=== PATIENT | male | born 1960 | race Caucasian/White ===

== ENCOUNTER → 2018-06-12 | Outpatient (CLI) | payer SELFPAY ==
[2018-06-12 11:08] LABS: ABSOLUTE BASOPHILS # (AUTO) 0.1 10^3/uL (0.0-0.2); ABSOLUTE EOSINOPHILS # (AUTO) 0.6 10^3/uL (0.0-0.6); ABSOLUTE LYMPHOCYTES (AUTO) 1.6 10^3/uL (0.5-4.7); ABSOLUTE MONOCYTES (AUTO) 1.1 10^3/uL (0.1-1.4); ABSOLUTE NEUT (AUTO) 9.4 10^3/uL (1.7-8.2); BASOPHILS % (AUTO) 0.7 % (0-2); EOSINOPHILS % (AUTO) 4.7 % (0-6); HEMATOCRIT 28.5 % (37.9-51.0); HEMOGLOBIN 9.1 g/dL (13.5-17.0); LYMPHOCYTES % (AUTO) 12.5 % (13-45); MEAN CORPUSCULAR HEMOGLOBIN 24.7 pg (27.0-33.4); MEAN CORPUSCULAR VOLUME 77 fl (80-97); MONOCYTES % (AUTO) 8.3 % (3-13); RED CELL DISTRIBUTION WIDTH 15.7 % (11.5-14.0); SEGMENTED NEUTROPHILS % (AUTO) 73.8 % (42-78); TOTAL CELLS COUNTED % (AUTO) 100 %; WHITE BLOOD COUNT 12.8 10^3/uL (4.0-10.5)
[2018-06-12 11:10] LABS: ALANINE AMINOTRANSFERASE 27 U/L (21-72); ALBUMIN 4.3 g/dL (3.5-5.0); ALKALINE PHOSPHATASE 70 U/L (38-126); ANION GAP 9 (5-19); ASPARTATE AMINO TRANSFERASE 26 U/L (17-59); BILIRUBIN,DIRECT 0.2 mg/dL (0.0-0.4); BILIRUBIN,TOTAL 0.3 mg/dL (0.2-1.3); BLOOD UREA NITROGEN 8 mg/dL (7-20); CALCIUM 9.2 mg/dL (8.4-10.2); CARBON DIOXIDE 27 mmol/L (22-30); CHLORIDE 104 mmol/L (98-107); GLUCOSE 102 mg/dL (75-110); POTASSIUM 4.7 mmol/L (3.6-5.0); SODIUM 140.2 mmol/L (137-145); TOTAL PROTEIN 7.4 g/dL (6.3-8.2)
[2018-06-12 11:46] LABS: PLATELET COUNT 412 10^3/uL (150-450)
== END ==
LOC: OD 09:48
PROVIDERS: ATTEND Surgery
DX: R13.10 Dysphagia, unspecified (principal); R53.83 Other fatigue; R63.4 Abnormal weight loss
CPT/HCPCS: 36415; 80053; 85025

== ENCOUNTER → 2018-06-18 | Outpatient (CLI) | payer SELFPAY ==
--- NOTE | 2018-06-18 10:33 | RADIOLOGY REPORT (SQ) ---
EXAM DESCRIPTION: CT CHEST WITH COMPLETED DATE/TIME: 06/18/2018 8:59 am REASON FOR STUDY: DISEASE OF ESOPHAGUS (K22.9), UMBILICAL HERNIA (K42.9) K22.9 DISEASE OF ESOPHAGUS , UNSPECIFIED K42.9 UMBILICAL HERNIA WITHOUT OBSTRUCTION OR GANGRENE COMPARISON: None. TECHNIQUE: CT scan of the chest performed using helical scanning technique with dynamic intravenous contrast injection. Images reviewed with lung, soft tissue and bone windows. Reconstructed coronal and sagittal MPR and MIP images reviewed. All images stored on PACS. All CT scanners at this facility use dose modulation, iterative reconstruction, and/or weight based d osing when appropriate to reduce radiation dose to as low as reasonably achievable (ALARA). [facility]: Dose Right [facility]: CareDose [facility]: Dose Right [facility]: Teradose 4D [facility]: Pley CONTRAST TYPE AND DOSE: 100 mL Omnipaque 350- low osmolar. RENAL FUNCTION: BUN 8 creatinine 0.63 RADIATION DOSE: . LIMITATIONS: None. FINDINGS: LUNGS AND PLEURA: No opacities, nodules, masses. No pneumothorax. No effusions. HILAR AND MEDIASTINAL STRUCTURES: No identified masses or abnormal nodes. HEART AND VASCULAR STRUCTURES: No aneurysm or dissection. No central pulmonary emboli. No pericardi al effusion. HARDWARE: None in the chest. UPPER ABDOMEN: See separate report of the CT of the abdomen. THYROID AND OTHER SOFT TISSUES: No masses. No adenopathy. BONES: No significant finding. OTHER: No other significant finding. IMPRESSION: NORMAL CT OF THE CHEST WITH IV CONTRAST. TECHNICAL DOCUMENTATION: JOB ID: [id number] Quality ID # [id number]: Final reports with documentation of one or more dose reduction techniques (e.g., Au tomated exposure control, adjustment of the mA and/or kV according to patient size, use of iterative reconstruction technique) 2010 [employer]- All Rights Reserved Reading location - IP/workstation name: [email or web address]
--- NOTE | 2018-06-18 10:44 | RADIOLOGY REPORT (SQ) ---
EXAM DESCRIPTION: CT ABD/PELVIS WITH IV ORAL COMPLETED DATE/TIME: 06/18/2018 8:58 am REASON FOR STUDY: DISEASE OF ESOPHAGUS (K22.9), UMBILICAL HERNIA (K42.9) K22.9 DISEASE OF ESOPHAGUS , UNSPECIFIED K42.9 UMBILICAL HERNIA WITHOUT OBSTRUCTION OR GANGRENE COMPARISON: None. TECHNIQUE: CT scan of the abdomen and pelvis performed with intravenous and oral contrast using walter eloy scanning technique with dynamic intravenous contrast injection. Images reviewed with lung, soft t issue, and bone windows. Reconstructed coronal and sagittal MPR images reviewed. Delayed images for e valuation of the urinary system also acquired. All images stored on PACS. All CT scanners at this facility use dose modulation, iterative reconstruction, and/or weight based d osing when appropriate to reduce radiation dose to as low as reasonably achievable (ALARA). [facility]: Dose Right [facility]: CareDose [facility]: Dose Right [facility]: Teradose 4D [facility]: Paper Hunter CONTRAST TYPE AND DOSE: contrast/concentration: Isovue 350.00 mg/ml; Total Contrast Delivered: 100.0 ml; Total Saline Delivered: 72.0 ml RENAL FUNCTION: GFR > 60. RADIATION DOSE: CT Rad equipment meets quality standard of care and radiation dose reduction techniq ues were employed. CTDIvol: 11.1 - 15.9 mGy. DLP: 2094 mGy-cm. . LIMITATIONS: Artifact from residual barium. FINDINGS: LOWER CHEST: See separate report of the CT of the chest. LIVER: 1.8 cm low-density lesion medial segment left lobe not visualized on delayed imaging. Similar size lesion subcapsular posterior segment right lobe with delayed enhancement typical of a hemangiom a. Additional subcentimeter low-density lesions too small to characterize. SPLEEN: Normal size. No focal lesions. PANCREAS: No masses. No significant calcifications. No adjacent inflammation or peripancreatic fluid collections. Pancreatic duct not dilated. GALLBLADDER: No identified stones by CT criteria. No inflammatory changes to suggest cholecystitis. ADRENAL GLANDS: No significant masses or asymmetry. RIGHT KIDNEY AND URETER: No solid masses. No significant calcifications. No hydronephrosis or hyd roureter. LEFT KIDNEY AND URETER: No solid masses. No significant calcifications. No hydronephrosis or hydr oureter. AORTA AND VESSELS: No aneurysm. No dissection. Renal arteries, SMA, celiac without stenosis. RETROPERITONEUM: No retroperitoneal adenopathy, hemorrhage or masses. BOWEL AND PERITONEAL CAVITY: Enlarged gastrohepatic nodes, the largest 1.2 x 2.1 cm image 18. No obstruction. No visualized masses. No free fluid. No inflammatory changes or thickening of bowel wall. APPENDIX: Normal. PELVIS: No significant masses. Normal bladder. No free fluid. ABDOMINAL WALL: Fat containing anterior abdominal wall hernia. Defect measures about 2.5 cm transver se by 2.1 cm craniocaudal diameter. BONES: No significant or acute findings. OTHER: No other significant finding. IMPRESSION: 1. Mildly enlarged gastrohepatic lymph nodes. 2. Liver lesions most likely all hemangiomas, however follow-up MRI might be considered. 3. Fat containing anterior abdominal wall hernia. TECHNICAL DOCUMENTATION: JOB ID: [id number] Quality ID # [id number]: Final reports with documentation of one or more dose reduction techniques (e.g., Au tomated exposure control, adjustment of the mA and/or kV according to patient size, use of iterative reconstruction technique) 2010 [employer]- All Rights Reserved Reading location - IP/workstation name: [email or web address]
== END ==
LOC: RAD 08:19
PROVIDERS: ATTEND Surgery
DX: K22.9 Disease of esophagus, unspecified (principal); K42.9 Umbilical hernia without obstruction or gangrene; R59.0 Localized enlarged lymph nodes
CPT/HCPCS: 71260; 74177

== ENCOUNTER 2018-06-19 08:37 | Day surgery (SDC) | payer SELFPAY ==
[~2018-06-19 08:37] MED LIST: DIPHENHYDRAMINE HCL 50 MG/ML VIAL ONE; EPINEPHRINE INJ 1 MG/10 ML DISP.SYRIN ONE; FLUMAZENIL INJ 0.5 MG/5 ML VIAL ONE; GLUCAGON,HUMAN RECOMB 1 MG INJ ONE; NALOXONE HCL INJ/PF 0.4 MG/1 ML SDV ONE; ONDANSETRON HCL INJ/PF 4 MG/2 ML SDV ONE
[2018-06-19] MEDS: MIDAZOLAM 2 MG/2 ML INJ ONE ×3 (09:02→09:08)
[2018-06-19] MEDS: FENTANYL CITRATE INJ/PF 100 MCG/2 ML AMPUL ONE ×2 (09:04→09:12)
--- NOTE | 2018-06-19 10:06 | Operative Report ---
Nonrecallable Operative Report DATE OF SURGERY: 06/19/18 PREOPERATIVE DIAGNOSIS: dysphagia POSTOPERATIVE DIAGNOSIS: esophageal mass OPERATION: gastroesophagoscopy and biopsy SURGEON: SHINE DANIELS ANESTHESIA: Moderate Sedation TISSUE REMOVED OR ALTERED: esophageal biopsy at 35cm COMPLICATIONS: none ESTIMATED BLOOD LOSS: 0 INTRAOPERATIVE FINDINGS: see dictation PROCEDURE: see dictation
--- NOTE | 2018-06-19 10:13 | Discharge Summary ---
Discharge Summary (SDC) - Discharge Final Diagnosis: esophageal mass dysphagia Date of Surgery: 06/19/18 Condition: Good Treatment or Instructions: resume soft diet needs f/u with surgery clinic in 1 wk and f/u appoint with oncology Discharge Diet: As Tolerated - pt will need a f/u with me in a week and appoint wjth oncology. Discharge Activity: Activity As Tolerated, Balance Activity w/Rest, No Driving Home Care Assistance: None Needed Report the Following to Your Physician Immediately: Shortness of Breath, Nausea, Vomiting, Increase in Pain, Fever over 101 Degrees, Unusual Bleeding, IV Site Infection Signs
--- NOTE | 2018-06-19 10:33 | OPERATIVE REPORT E ---
Operative Report NAME: CATHY CARDONA : 1960 AGE: 58Y DATE OF SURGERY: 06/19/2018 ROOM: PREOPERATIVE DIAGNOSIS: Dysphagia. POSTOPERATIVE DIAGNOSIS: Esophageal mass. OPERATIVE PROCEDURE: Esophagogastroduodenoscopy with distal esophageal biopsy. SURGEON: SHINE DANIELS M.D. ANESTHESIA: IV sedation. INDICATIONS FOR OPERATION: This is a 58-year-old male who presented to the outpatient surgery clinic about 2 weeks ago with an umbilical hernia. The patient states during his physical examination that he had increasing dysphagia. Therefore, we did an upper GI on the patient, which the radiologist noted a distal esophageal mass. He, therefore, underwent a CT scan of his abdomen and chest, and we scheduled this procedure for biopsy. PROCEDURE: The patient was brought to the endoscopy suite, awake and alert, in stable condition, placed on the operative gurney and given IV sedation after an appropriate time out was performed. Initially he was given 2 mg of Versed and 50 mcg of Fentanyl, and at the completion he had received 6 mg of Versed and 150 mcg of Fentanyl. The patient was placed in a left lateral decubitus position. The Olympus gastroscope was placed into the posterior pharynx and advanced down the esophagus to the GE junction. We then continued to advance the scope to the cardia, body, and antrum of the stomach and into the duodenum. As we pulled back the duodenum was visualized and appeared to be normal, as was the body of the stomach and the antrum. Then, on retroflex of the scope, we observed the GE junction and that also appeared to be relatively normal at 38 cm. We then withdrew the scope slowly, and just above the GE junction at about 35 cm there was friable mucosa that appeared to be nodular. Numerous biopsies were obtained and sent to pathology. There was no significant bleeding from the biopsy sites. We then withdrew the scope and the rest of the esophagus proximal to that 35 cm area appeared to be normal. This completed the procedure. Estimated blood loss was negligible. The patient was returned to recovery in stable condition. DICTATING PHYSICIAN: SHINE DANIELS M.D. [id number] PHY#: [id number] ID: [id number] JOB#: [id number] ACCT: [id number] cc:SHINE DANIELS M.D. >
[2018-06-19 10:36] VITALS: BP 111/67
== END 2018-06-19 11:15 | disposition home or self-care (01) ==
LOC: END 08:37
PROVIDERS: ATTEND Surgery
DX: K22.9 Disease of esophagus, unspecified (principal); K21.9 Gastro-esophageal reflux disease without esophagitis; K42.9 Umbilical hernia without obstruction or gangrene; F17.210 Nicotine dependence, cigarettes, uncomplicated
CPT/HCPCS: 43239; 88305 ×2; J2250; J3010; J0171; J1200; J1610; J2310; J2405; J3490

== ENCOUNTER → 2018-07-29 | Outpatient (CLI) | payer SELFPAY ==
--- NOTE | 2018-07-30 08:58 | RADIOLOGY REPORT (SQ) ---
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 TECHNIQUE: Blood glucose level was verified. Above dose of FDG was injected intravenously. 2-D seg mented attenuation correction images were obtained from the base of the skull to the midthighs. Nonc ontrast CT images were obtained for attenuation correction and fusion with emission images. CT image s were performed without oral or intravenous contrast and are not sensitive for parenchymal lesions. A series of overlapping emission PET images were obtained. Images reviewed and manipulated at [facility] work station by the radiologist. Images stored on PACS. LIMITATIONS: None. FINDINGS: HEAD AND NECK: No areas of abnormal metabolic activity in the soft tissues of the head and neck. CHEST: The distal 3rd of the esophagus is markedly abnormal, with wall thickening and luminal narrowi ng from previously biopsied esophageal adenocarcinoma. Tumor measures 15 did 18 SUV. There are no m etabolically active mediastinal lymph nodes ABDOMEN AND PELVIS: Non metabolic small lymph nodes are present in the upper abdomen as follows: 1.3 cm gastrohepatic lymph node SUV 1.2 axial image 128/303 2 x 1 cm gastrohepatic lymph node SUV 1.6 axial image 132/303 1.8 x 1 cm portacaval space lymph node SUV 1.6 axial image 148/303 PROXIMAL LOWER EXTREMITIES: No areas of abnormal metabolic activity in the soft tissues of the lower extremities. BONES: No abnormal metabolic activity in the visualized skeleton. ADDITIONAL CT FINDINGS: Fat containing umbilical hernia. Calcified coronary arteries and carotid bif urcations. Scattered colonic diverticuli without CT signs acute diverticulitis OTHER: Blood pool activity 1.7 SUV. Liver background activity 2.1 SUV IMPRESSION: Malignant distal esophageal mass without PET-CT evidence of metabolically active mediast inal or upper abdominal adenopathy TECHNICAL DOCUMENTATION: JOB ID: [id number]- All Rights Reserved Reading location - IP/workstation name: [email or web address]
== END ==
LOC: RAD 19:56
PROVIDERS: ATTEND Internal Medicine Hematology & Oncology
DX: C15.5 Malignant neoplasm of lower third of esophagus (principal)
CPT/HCPCS: 78815; A9552

== ENCOUNTER 2018-08-14 05:28 | Day surgery (SDC) | payer SELFPAY ==
[~2018-08-14 05:28] MED LIST changes: +ACETAMINOPHEN 325 MG TABLET PO PRN; +CEFAZOLIN 1 GM/D5W RTU 1 GM/50 ML RTUPB IV ONE; +CEFAZOLIN 1 GM/D5W RTU 1 GM/50 ML RTUPB IV PRN; -DIPHENHYDRAMINE HCL 50 MG/ML VIAL ONE; -EPINEPHRINE INJ 1 MG/10 ML DISP.SYRIN ONE; -FLUMAZENIL INJ 0.5 MG/5 ML VIAL ONE; -GLUCAGON,HUMAN RECOMB 1 MG INJ ONE; +METRONIDAZOLE 500 MG/NS RTU 500 MG/100 ML RTUPB IV ONE; +METRONIDAZOLE 500 MG/NS RTU 500 MG/100 ML RTUPB IV PRN; -NALOXONE HCL INJ/PF 0.4 MG/1 ML SDV ONE; -ONDANSETRON HCL INJ/PF 4 MG/2 ML SDV ONE; +RINGERS SOLUTION,LACTATED 1,000 ML IV PRN
[2018-08-14 06:24] LABS: ABSOLUTE EOSINOPHILS # (AUTO) 0.5 10^3/uL (0.0-0.6); ABSOLUTE LYMPHOCYTES (AUTO) 1.1 10^3/uL (0.5-4.7); ABSOLUTE MONOCYTES (AUTO) 0.8 10^3/uL (0.1-1.4); ABSOLUTE NEUT (AUTO) 6.3 10^3/uL (1.7-8.2); BASOPHILS % (AUTO) 0.6 % (0-2); EOSINOPHILS % (AUTO) 5.8 % (0-6); HEMATOCRIT 31.2 % (37.9-51.0); HEMOGLOBIN 9.9 g/dL (13.5-17.0); LYMPHOCYTES % (AUTO) 12.9 % (13-45); MEAN CORPUSCULAR HEMOGLOBIN 23.7 pg (27.0-33.4); MEAN CORPUSCULAR HGB CONC 31.7 g/dL (32.0-36.0); MEAN CORPUSCULAR VOLUME 75 fl (80-97); PLATELET COUNT 428 10^3/uL (150-450); RED BLOOD COUNT 4.17 10^6/uL (4.35-5.55); RED CELL DISTRIBUTION WIDTH 19.6 % (11.5-14.0); SEGMENTED NEUTROPHILS % (AUTO) 71.7 % (42-78); TOTAL CELLS COUNTED % (AUTO) 100 %; WHITE BLOOD COUNT 8.7 10^3/uL (4.0-10.5)
[2018-08-14] MEDS ORDERED: ALBUTEROL SULFATE 0.083% NEB 2.5 MG/3 ML AMPUL NEB ONE (06:51)
[2018-08-14] MEDS ORDERED: FENTANYL CITRATE INJ/PF 100 MCG/2 ML AMPUL ONE ×3 (06:54→08:55)
[2018-08-14] MEDS ORDERED: KETAMINE HCL INJ 500 MG/10 ML VIAL ONE (06:54)
[2018-08-14] MEDS ORDERED: PROPOFOL INJ 200 MG/20 ML VIAL IV ONE (06:55)
[2018-08-14] MEDS ORDERED: MIDAZOLAM 2 MG/2 ML INJ ONE (06:55)
[2018-08-14] MEDS ORDERED: BUPIVACAINE HCL 0.5%-EPI 1:200000 INJ/PF 30 ML VIAL ONE (07:15)
[2018-08-14] MEDS ORDERED: DIPHENHYDRAMINE HCL 50 MG/ML VIAL IV PRN (08:27)
[2018-08-14] MEDS ORDERED: PROMETHAZINE HCL INJ 25 MG/1 ML VIAL IV PRN (08:27)
[2018-08-14] MEDS ORDERED: ONDANSETRON HCL INJ/PF 4 MG/2 ML SDV ONE (09:47)
[2018-08-14] MEDS ORDERED: SUCCINYLCHOLINE CHLORIDE INJ 200 MG/10 ML VIAL ONE (09:47)
[2018-08-14] MEDS ORDERED: DEXAMETHASONE SOD PHOSPHATE INJ 4 MG/1 ML VIAL ONE (09:47)
--- NOTE | 2018-08-14 09:53 | RADIOLOGY REPORT (SQ) ---
EXAM DESCRIPTION: FLUORO/CV PLACEMENT COMPLETED DATE/TIME: 08/14/2018 8:49 am REASON FOR STUDY: PORTACATH PLCMT LEFT SIDE ASST WITH FLUORO IN OR C15.9 MALIGNANT NEOPLASM OF ESOP HAGUS, UNSPECIFIED COMPARISON: None. FLUOROSCOPY TIME: 0.7 minutes. 4 images saved to PACS. TECHNIQUE: Intra-operative images acquired during surgical procedure to evaluate progress. NUMBER OF IMAGES: 4 images. LIMITATIONS: None. FINDINGS: Images of the chest acquired during placement of vascular port. IMPRESSION: IMAGE(S) OBTAINED DURING PROCEDURE. COMMENT: Quality ID 145: Final reports for procedures using fluoroscopy that document radiation exp osure indices, or exposure time and number of fluorographic images (if radiation exposure indices are not available) Please consult full operative report of the attending physician for description of the procedure. TECHNICAL DOCUMENTATION: JOB ID: [id number] [employer]- All Rights Reserved Reading location - IP/workstation name: [email or web address]
--- NOTE | 2018-08-14 10:05 | Operative Report ---
Nonrecallable Operative Report DATE OF SURGERY: 08/14/18 PREOPERATIVE DIAGNOSIS: esophageal cancer POSTOPERATIVE DIAGNOSIS: esophageal cancer OPERATION: diagnostic laparoscopy. laparoscpic jejunostomy tube placement. portacath placement. biopsy of gastroesophageal junction SURGEON: SHINE DANIELS ANESTHESIA: GA TISSUE REMOVED OR ALTERED: biopsy of gastroesophaeal jeunction COMPLICATIONS: none ESTIMATED BLOOD LOSS: 10cc. INTRAOPERATIVE FINDINGS: see dictation PROCEDURE: see dictation
--- NOTE | 2018-08-14 10:08 | Discharge Summary ---
Discharge Summary (SDC) - Discharge Final Diagnosis: esphageal cancer Date of Surgery: 08/14/18 Discharge Date: 08/14/18 Condition: Good Treatment or Instructions: keep the op-site on the j- tube till you see me ok to shower tomorrow. try to keep the opsite dry ok, to get steristrips wet, but no soap Referrals: ZAINAB MCCONNELL MD [Primary Care Provider] - Discharge Diet: Full Liquids - cont your full liquid diet no need to use the j- tube yet. Discharge Activity: Activity As Tolerated, No Lifting Over 10 Pounds Report the Following to Your Physician Immediately: Shortness of Breath, Nausea, Vomiting, Increase in Pain, Fever over 101 Degrees, Unusual Bleeding, Increased Soreness - needs appoint to see me in 1 wk.
[2018-08-14] MEDS ORDERED: OXYCODONE-ACETAMINOPHEN 5-325 MG TABLET PO PRN (10:10)
--- NOTE | 2018-08-14 10:50 | OPERATIVE REPORT E ---
Operative Report NAME: CATHY CARDONA : 1960 AGE: 58Y DATE OF SURGERY: 08/14/2018 ROOM: PREOPERATIVE DIAGNOSIS: ESOPHAGEAL CANCER. POSTOPERATIVE DIAGNOSIS: ESOPHAGEAL CANCER. OPERATION: Port-A-Cath placement, left chest, laparoscopic jejunostomy tube placement, gastroesophageal biopsy. SURGEON: SHINE DANIELS M.D. INDICATIONS FOR PROCEDURE: This is a 58-year-old male with known distal esophageal cancer. He is to undergo neoadjuvant chemotherapy, radiation therapy prior to his surgical esophagectomy. Because of this, he will need temporary feeding tube placement as well as Port-A-Cath placement for IV access for chemotherapy and he is therefore scheduled for this procedure. PROCEDURE: The patient was brought to the operating room in awake, alert, and stable condition, and placed on the operating table in supine position, induced under general anesthesia and intubated. The left neck and chest were prepped and draped in usual sterile fashion for the procedure. After appropriate timeout, a left subclavian stick was made with an 18-gauge needle and a wire was passed through the needle into the superior vena cava using fluoroscopy. Once this was accomplished we used the Port-A-Cath kit and a tearaway introducer dilator was placed over the wire into the superior vena cava under direct fluoroscopy. The wire was then removed as well as the dilator and the catheter was placed through the tearaway introducer, positioned in the superior vena cava just above the right atrium and the tearaway introducer was torn away. Good position resulted. We then turned our attention to the left anterior chest wall in the area just above the nipple was anesthetized with 0.5% Bupivacaine with epinephrine. Transition incision was made with a 15 blade and dissection was carried down through subcutaneous tissue with Bovie cautery. A subcutaneous pocket was made inferior to the incision to fit the power port. It was placed into the pocket. Then using the tunnel maker supplied with the kit, a tunnel was created between the subclavian stick site and the port site underneath the skin and this was done bluntly. The catheter was pulled through, attached to the power port and was irrigated with heparinized saline solution and withdrew blood well. Once it was placed, the subcutaneous tissue was then reapproximated with interrupted 3-0 Vicryl suture and the skin was reapproximated intracuticular 4-0 Biosyn. I checked the cath and the port again with Heparinized solution and it flushed and withdrew well. Gabe left heparinized saline solution within the port and the catheter. The patient was reprepped and draped for the second portion of the procedure. After appropriate timeout, the Veress needle was placed in the left upper quadrant in Palmar's point. The abdomen was insufflated with 6 liters of CO2 gas. The right lower quadrant was picked for the 5 mm camera port because the patient had a fairly large umbilical hernia with incarcerated omentum. We placed the port in the right lower quadrant. Intraabdominal visualization revealed no evidence of a Veress needle or trocar injury. Another 5 mm port was placed in the right upper quadrant. A third port, which we were going to utilize for the camera was placed supraumbilically above the umbilical hernia. We explored the abdomen with the laparoscope. I examined both lobes of the liver and they did appear to be normal without any evidence of metastatic disease. There was no peritoneal setting, however, at the GE junction just below the diaphragm there was a number of small excrescences that were removed with the endoscopic Metzenbaum scissors grasping it. Hemostasis was not required. It did not bleed. These were sent to pathology as biopsy of the GE junction. Once this was completed, we then identified the ligament of Treitz. We ran the small bowel from the ligament of Treitz to about 20 cm where I picked a loop to utilize for the jejunostomy tube. We then desufflated the abdominal cavity and created a transverse incision in the left abdominal wall with 15 blade and carried out dissection out to rectus fascia with Bovie cautery. The rectus muscle was bluntly and the posterior sheath was opened with Bovie cautery. I pulled the loop of jejunum through that small incision and then placed a 2-0 purse string suture of chromic, made a small enterotomy and placed the Dobhoff feeding tube into the jejunum at least down approximately 60 cm from the entrance site. I tied the pursestring suture down around the tube so it would not pull back. We then used a 2-0 Silk to perform a Witzel maneuver tacking the tube to the antimesenteric border of the jejunum. Once this was done, we allowed the small bowel to drop back into the abdominal cavity. I closed the transverse incision with interrupted placed cushion with a running 0-Vicryl suture for the posterior sheath and anterior sheath was closed with interrupted 0-Vicryl suture. It was anesthetized with 0.5% Marcaine solution with epinephrine and then closed the skin with intracuticular 4-0 Caprosyn. We insufflated the abdominal cavity and using 2-0 Silk I tacked the jejunum up to the anterior abdominal wall at the exit site of the tube with interrupted placed 2-0 Silk sutures, placed circumferentially around the entrance site of the tube and then distally approximately 3 to 4 cm so that the small bowel would not helicopter upon itself. Once this was completed a pneumoperitoneum was reduced. The feeding tube irrigated and withdrew well. After the pneumoperitoneum was reduced, we closed all skin incisions with the intracuticular 4-0 Biosyn and then Steri-Strips were applied to complete the procedure. Estimated blood loss was less than 10 mL. Sponge and needle counts were correct x2. The patient was awakened in the operating room, extubated, and transferred to recovery in stable condition. No complications. DICTATING PHYSICIAN: SHINE DANIELS M.D. [id number] PHY#: [id number] ID: [id number] JOB#: [id number] ACCT: [id number] cc:SHINE DANIELS M.D. >
--- NOTE | 2018-08-14 10:52 | RADIOLOGY REPORT (SQ) ---
EXAM DESCRIPTION: CHEST SINGLE VIEW COMPLETED DATE/TIME: 08/14/2018 10:33 am REASON FOR STUDY: post portacath COMPARISON: PET-CT 07/29/2018 EXAM PARAMETERS: NUMBER OF VIEWS: One view. TECHNIQUE: Single frontal radiographic view of the chest acquired. RADIATION DOSE: NA LIMITATIONS: None. FINDINGS: LUNGS AND PLEURA: No opacities, masses or pneumothorax. No pleural effusion. MEDIASTINUM AND HILAR STRUCTURES: No masses. Contour normal. HEART AND VASCULAR STRUCTURES: Heart normal in size. Normal vasculature. BONES: No acute findings. HARDWARE: Left-sided permanent central line tip superior vena cava. OTHER: No other significant finding. IMPRESSION: Left-sided permanent central line tip superior vena cava. No pneumothorax. TECHNICAL DOCUMENTATION: JOB ID: [id number] [employer]- All Rights Reserved Reading location - IP/workstation name: [email or web address]
[2018-08-14 12:17] VITALS: BP 126/77
== END 2018-08-14 12:10 | disposition home or self-care (01) ==
LOC: OROUT 05:28
PROVIDERS: ATTEND Surgery
DX: C15.9 Malignant neoplasm of esophagus, unspecified (principal); K42.9 Umbilical hernia without obstruction or gangrene; J45.909 Unspecified asthma, uncomplicated; F17.210 Nicotine dependence, cigarettes, uncomplicated
CPT/HCPCS: 36415; 85025; 88305 ×2; 71045; 77001; 36561; 44186; C1788; Q9967; J2250; J3490; J0690; J1100; J3010; J0330; J2405; J2704; J1642; 790

== ENCOUNTER 2018-08-16 10:55 | Outpatient (CLI) | payer SELFPAY ==
[~2018-08-16 10:55] MED LIST changes: -ACETAMINOPHEN 325 MG TABLET PO PRN; -CEFAZOLIN 1 GM/D5W RTU 1 GM/50 ML RTUPB IV ONE; -CEFAZOLIN 1 GM/D5W RTU 1 GM/50 ML RTUPB IV PRN; +FERRIC CARBOXYMALTOSE 750 MG in NORMAL SALINE 250 ML IV PRN; -METRONIDAZOLE 500 MG/NS RTU 500 MG/100 ML RTUPB IV ONE; -METRONIDAZOLE 500 MG/NS RTU 500 MG/100 ML RTUPB IV PRN; +NORMAL SALINE 250 ML IV PRN; -RINGERS SOLUTION,LACTATED 1,000 ML IV PRN
[2018-08-16 11:22] VITALS: BP 119/80
== END 2018-08-16 12:34 | disposition home or self-care (01) ==
LOC: II 10:55 → 5TH 10:57 → II 12:34
PROVIDERS: ATTEND Internal Medicine Hematology & Oncology
PROC: 3E033GC Introduction of Other Therapeutic Substance into Peripheral Vein, Percutaneous Approach (ICD-10-PCS; principal; 2018-08-16)
DX: D50.9 Iron deficiency anemia, unspecified (principal); K90.9 Intestinal malabsorption, unspecified
CPT/HCPCS: 96365; J7050; J1439

== ENCOUNTER 2018-08-23 10:38 | Outpatient (CLI) | payer SELFPAY ==
[2018-08-23] MEDS ORDERED: FERRIC CARBOXYMALTOSE 750 MG in NORMAL SALINE 250 ML IV ONE (11:15)
[2018-08-23] MEDS ORDERED: NORMAL SALINE 1000 ML 1,000 ML IV PRN (11:16)
[2018-08-23 11:39] VITALS: BP 110/66
== END 2018-08-23 12:20 | disposition home or self-care (01) ==
LOC: II 10:38 → 5TH 10:42 → II 12:20
PROVIDERS: ATTEND Internal Medicine Hematology & Oncology
DX: D50.9 Iron deficiency anemia, unspecified (principal); K90.9 Intestinal malabsorption, unspecified
CPT/HCPCS: 96367; J7050; J1439

== ENCOUNTER 2018-08-29 07:49 | Outpatient (CLI) | payer SELFPAY ==
[~2018-08-29 07:49] MED LIST changes: +CARBOPLATIN IV PRN; +DEXAMETHASONE SOD PHOSPHATE 10 MG in NORMAL SALINE 50 ML IV PRN; +DIPHENHYDRAMINE HCL 50 MG in NORMAL SALINE 50 ML IV PRN; +FAMOTIDINE/PF 20 MG in NORMAL SALINE 50 ML IV PRN; -FERRIC CARBOXYMALTOSE 750 MG in NORMAL SALINE 250 ML IV PRN; +NORMAL SALINE IV PRN; +PACLITAXEL SEMI SYNTHETIC IV PRN; +PALONOSETRON 0.25 MG/5 ML SDV IV PRN
[2018-08-29 08:23] VITALS: BP 101/67
== END 2018-08-29 12:49 | disposition home or self-care (01) ==
LOC: II 07:49 → 5TH 07:52 → II 12:49
PROVIDERS: ATTEND Internal Medicine Hematology & Oncology
PROC: 3E04305 Introduction of Other Antineoplastic into Central Vein, Percutaneous Approach (ICD-10-PCS; principal; 2018-08-29)
PROC: 3E0433Z Introduction of Anti-inflammatory into Central Vein, Percutaneous Approach (ICD-10-PCS; 2018-08-29)
PROC: 3E043GC Introduction of Other Therapeutic Substance into Central Vein, Percutaneous Approach (ICD-10-PCS; 2018-08-29)
DX: Z51.11 Encounter for antineoplastic chemotherapy (principal); C15.9 Malignant neoplasm of esophagus, unspecified
CPT/HCPCS: 96413; 96415; 96365; 96366; 96374; J1200; J9045; J7050; J7040; J9267; S0028; J1100; J1642; J2469; 96367; 96375; 96417

== ENCOUNTER 2018-09-05 08:31 | Outpatient (CLI) | payer SELFPAY ==
[~2018-09-05 08:31] MED LIST changes: +DEXAMETHASONE 10 MG in NS 50 ML IV PRN; -DEXAMETHASONE SOD PHOSPHATE 10 MG in NORMAL SALINE 50 ML IV PRN; +DIPHENHYDRAMINE 50 MG in NS 50 ML IV PRN; -DIPHENHYDRAMINE HCL 50 MG in NORMAL SALINE 50 ML IV PRN; +FAMOTIDINE 20 MG in NS 50 ML IV PRN; +FAMOTIDINE 20 MG/2 ML VIAL IV PRN; -FAMOTIDINE/PF 20 MG in NORMAL SALINE 50 ML IV PRN; +NORMAL SALINE 250 ML @ KVO IV PRN; -NORMAL SALINE 250 ML IV PRN; -PALONOSETRON 0.25 MG/5 ML SDV IV PRN; +PALONOSETRON 0.25 MG/5 ML VIAL IV PRN
[2018-09-05 09:10] VITALS: BP 99/63
== END 2018-09-05 13:37 | disposition home or self-care (01) ==
LOC: II 08:31 → 5TH 08:33 → II 13:37
PROVIDERS: ATTEND Internal Medicine Hematology & Oncology
DX: Z51.11 Encounter for antineoplastic chemotherapy (principal); C15.9 Malignant neoplasm of esophagus, unspecified
CPT/HCPCS: 96413; 96415; 96367; 96374; 96375; 96360; J1200; J9045; J7050; J7040; J9267; S0028; J1100; J1642; J2469

== ENCOUNTER 2018-09-12 08:33 | Outpatient (CLI) | payer SELFPAY ==
[~2018-09-12 08:33] MED LIST changes: -DEXAMETHASONE 10 MG in NS 50 ML IV PRN; +DEXAMETHASONE SOD PHOSPHATE 10 MG in NORMAL SALINE 50 ML IV PRN; -DIPHENHYDRAMINE 50 MG in NS 50 ML IV PRN; +DIPHENHYDRAMINE HCL 50 MG in NORMAL SALINE 50 ML IV PRN; -FAMOTIDINE 20 MG in NS 50 ML IV PRN; -FAMOTIDINE 20 MG/2 ML VIAL IV PRN; +FAMOTIDINE/PF 20 MG in NORMAL SALINE 50 ML IV PRN
[2018-09-12 08:52] VITALS: BP 132/79
== END 2018-09-12 12:34 | disposition home or self-care (01) ==
LOC: II 08:33 → 5TH 08:37 → II 12:34
PROVIDERS: ATTEND Internal Medicine Hematology & Oncology
PROC: 3E04305 Introduction of Other Antineoplastic into Central Vein, Percutaneous Approach (ICD-10-PCS; principal; 2018-09-12)
PROC: 3E0433Z Introduction of Anti-inflammatory into Central Vein, Percutaneous Approach (ICD-10-PCS; 2018-09-12)
PROC: 3E043GC Introduction of Other Therapeutic Substance into Central Vein, Percutaneous Approach (ICD-10-PCS; 2018-09-12)
DX: Z51.11 Encounter for antineoplastic chemotherapy (principal); C15.9 Malignant neoplasm of esophagus, unspecified; D50.9 Iron deficiency anemia, unspecified; K46.9 Unspecified abdominal hernia without obstruction or gangrene
CPT/HCPCS: 96413; 96415; 96367; 96368; 96374; 96375; 96360; J1200; J9045; J7050; J7040; J9267; S0028; J1100; J1642; J2469; 96417

== ENCOUNTER 2018-09-19 08:37 | Outpatient (CLI) | payer SELFPAY ==
[~2018-09-19 08:37] MED LIST changes: +DEXAMETHASONE 10 MG in NS 50 ML IV PRN; -DEXAMETHASONE SOD PHOSPHATE 10 MG in NORMAL SALINE 50 ML IV PRN; +DIPHENHYDRAMINE 50 MG in NS 50 ML IV PRN; -DIPHENHYDRAMINE HCL 50 MG in NORMAL SALINE 50 ML IV PRN; +FAMOTIDINE 20 MG in NS 50 ML IV PRN; -FAMOTIDINE/PF 20 MG in NORMAL SALINE 50 ML IV PRN
[2018-09-19 08:59] VITALS: BP 117/84
== END 2018-09-19 13:34 | disposition home or self-care (01) ==
LOC: II 08:37 → 5TH 08:39 → II 13:34
PROVIDERS: ATTEND Internal Medicine Hematology & Oncology
PROC: 3E04305 Introduction of Other Antineoplastic into Central Vein, Percutaneous Approach (ICD-10-PCS; principal; 2018-09-19)
PROC: 3E0433Z Introduction of Anti-inflammatory into Central Vein, Percutaneous Approach (ICD-10-PCS; 2018-09-19)
PROC: 3E043GC Introduction of Other Therapeutic Substance into Central Vein, Percutaneous Approach (ICD-10-PCS; 2018-09-19)
DX: Z51.11 Encounter for antineoplastic chemotherapy (principal); C15.9 Malignant neoplasm of esophagus, unspecified
CPT/HCPCS: 96413; 96415; 96365; 96366; 96374; J1200; J9045; J7050; J7040; J9267; S0028; J1100; J1642; J2469; 96367; 96375; 96417

== ENCOUNTER 2018-09-26 08:40 | Outpatient (CLI) | payer SELFPAY ==
[~2018-09-26 08:40] MED LIST changes: -DEXAMETHASONE 10 MG in NS 50 ML IV PRN; +DEXAMETHASONE SOD PHOSPHATE 10 MG in NORMAL SALINE 50 ML IV PRN; -DIPHENHYDRAMINE 50 MG in NS 50 ML IV PRN; +DIPHENHYDRAMINE HCL 50 MG in NORMAL SALINE 50 ML IV PRN; -FAMOTIDINE 20 MG in NS 50 ML IV PRN; +FAMOTIDINE/PF 20 MG in NORMAL SALINE 50 ML IV PRN; -NORMAL SALINE 250 ML @ KVO IV PRN; +NORMAL SALINE 250 ML IV PRN; +PALONOSETRON 0.25 MG/5 ML SDV IV PRN; -PALONOSETRON 0.25 MG/5 ML VIAL IV PRN
[2018-09-26 09:04] VITALS: BP 116/73
== END 2018-09-26 13:07 | disposition home or self-care (01) ==
LOC: II 08:40 → 5TH 08:44 → II 13:07
PROVIDERS: ATTEND Internal Medicine
PROC: 3E04305 Introduction of Other Antineoplastic into Central Vein, Percutaneous Approach (ICD-10-PCS; principal; 2018-09-26)
PROC: 3E0433Z Introduction of Anti-inflammatory into Central Vein, Percutaneous Approach (ICD-10-PCS; 2018-09-26)
PROC: 3E043GC Introduction of Other Therapeutic Substance into Central Vein, Percutaneous Approach (ICD-10-PCS; 2018-09-26)
DX: D57.1 Sickle-cell disease without crisis (principal); R52 Pain, unspecified; E86.0 Dehydration
CPT/HCPCS: 96413; 96415; 96367; 96374; 96375; J1200; J9045; J7050; J7040; J9267; S0028; J1100; J1642; J2469; 96417

== ENCOUNTER → 2018-09-27 | Outpatient (CLI) | payer SELFPAY | LOC: II 09:53 | PROVIDERS: ATTEND Internal Medicine Hematology & Oncology | DX: Z53.9 Procedure and treatment not carried out, unspecified reason (principal) ==

== ENCOUNTER 2018-10-03 09:35 | Outpatient (CLI) | payer SELFPAY ==
[2018-10-03] MEDS ORDERED: FAMOTIDINE 20 MG in NS 50 ML IV PRN (09:49)
[2018-10-03] MEDS ORDERED: DIPHENHYDRAMINE 50 MG in NS 50 ML IV PRN (09:49)
[2018-10-03] MEDS ORDERED: DEXAMETHASONE 10 MG in NS 50 ML IV PRN (09:49)
[2018-10-03] MEDS ORDERED: NORMAL SALINE 250 ML @ KVO IV PRN (09:50)
[2018-10-03] MEDS ORDERED: PALONOSETRON 0.25 MG/5 ML VIAL IV PRN (09:50)
[2018-10-03] MEDS ORDERED: PACLITAXEL SEMI SYNTHETIC IV PRN (09:56)
[2018-10-03] MEDS ORDERED: NORMAL SALINE IV PRN ×2 (09:56→10:09)
[2018-10-03 10:02] VITALS: BP 149/62
[2018-10-03] MEDS ORDERED: CARBOPLATIN IV PRN (10:09)
== END 2018-10-03 14:00 | disposition home or self-care (01) ==
LOC: II 09:35 → 5TH 09:39 → II 14:00
PROVIDERS: ATTEND Internal Medicine Hematology & Oncology
PROC: 3E04305 Introduction of Other Antineoplastic into Central Vein, Percutaneous Approach (ICD-10-PCS; principal; 2018-10-03)
PROC: 3E0433Z Introduction of Anti-inflammatory into Central Vein, Percutaneous Approach (ICD-10-PCS; 2018-10-03)
PROC: 3E043GC Introduction of Other Therapeutic Substance into Central Vein, Percutaneous Approach (ICD-10-PCS; 2018-10-03)
DX: Z51.11 Encounter for antineoplastic chemotherapy (principal); C15.9 Malignant neoplasm of esophagus, unspecified
CPT/HCPCS: 96413; 96367; 96375; 96417; J1200; J9045; J7050; J7040; J9267; S0028; J1100; J1642; J2469; 96360; 96374; 96415

== ENCOUNTER → 2018-10-11 | Outpatient (CLI) | payer SELFPAY ==
--- NOTE | 2018-10-11 14:17 | RADIOLOGY REPORT (SQ) ---
EXAM DESCRIPTION: CT CHEST WITH; CT ABD/PELVIS WITH IV ORAL COMPLETED DATE/TIME: 10/11/2018 1:15 pm REASON FOR STUDY: C15.9 MALIGNANT NEOPLASM OF ESOPHAGUS, UNSPECIFIED; K42.9 UMBILICAL HERNIA WITHOUT OBSTRUCTION OR GANGRENE C15.9 MALIGNANT NEOPLASM OF ESOPHAGUS, UNSPECIFIED K42.9 UMBILICAL HERNIA WITHOUT OBSTRUCTION OR GANGRENE COMPARISON: Via CT CS 7186 CT abdomen pelvis 06/18/2017 CONTRAST TYPE AND DOSE: contrast/concentration: Isovue 350.00 mg/ml; Total Contrast Delivered: 99.0 ml; Total Saline Delivered: 72.0 ml RENAL FUNCTION: Creatinine 0.44 TECHNIQUE: CT scan of the chest performed using helical scanning technique with dynamic intravenous contrast injection. Images reviewed with lung, soft tissue and bone windows. Reconstructed coronal a nd sagittal MPR images reviewed. All images stored on PACS. CT scan of the abdomen and pelvis performed with intravenous and with oral contrastusing helical scan татьяна technique with dynamic intravenous contrast injection. Images reviewed with lung, soft tissue a nd bone windows. Reconstructed coronal and sagittal MPR images reviewed. Delayed images for evaluat ion of the urinary system also acquired and evaluated. All images stored on PACS. All CT scanners at this facility use dose modulation, iterative reconstruction, and/or weight based d osing when appropriate to reduce radiation dose to as low as reasonably achievable (ALARA). [facility]: Dose Right [facility]: CareDose [facility]: Dose Right [facility]: Teradose 4D [facility]: [employer] RADIATION DOSE: CT Rad equipment meets quality standard of care and radiation dose reduction techniq ues were employed. CTDIvol: 8.1 - 10.2 mGy. DLP: 1356 mGy-cm. . LIMITATIONS: None. FINDINGS: CHEST: LUNGS AND PLEURA: No opacities, nodules, masses. No pneumothorax. No effusions. HILAR AND MEDIASTINAL STRUCTURES: The distal esophagus is diffusely abnormal, with wall thickening up to 1.7 cm in thickness. This is in the area of prior esophageal tumor identified 07/29/2018 this is s imilar compared to PET-CT 07/29/2018. No enlarged mediastinal lymph nodes are identified. HEART AND VASCULAR STRUCTURES: No aneurysm or dissection. No central pulmonary emboli. No pericardi al effusion. HARDWARE: Left permanent central line tip superior vena cava THYROID AND OTHER SOFT TISSUES: No masses. No adenopathy. BONES: No significant finding. OTHER: No other significant finding. ABDOMEN AND PELVIS: LIVER: 3 x 2 cm hypodensity in the posterior right lobe liver subdiaphragmatic surface worrisome for metastatic disease. This is best shown on axial image . 2 x 2 cm hypodensity is present in the left lobe liver between the middle and left hepatic veins worr isome for metastatic disease. Best shown on axial image . SPLEEN: Normal size. No focal lesions. PANCREAS: No masses. No significant calcifications. No adjacent inflammation or peripancreatic fluid collections. Pancreatic duct not dilated. GALLBLADDER: No identified stones by CT criteria. No inflammatory changes to suggest cholecystitis. ADRENAL GLANDS: No significant masses or asymmetry. RIGHT KIDNEY AND URETER: No solid masses. No significant calcification. No hydronephrosis or hydroure ter. LEFT KIDNEY AND URETER: No solid masses. No significant calcification. No hydronephrosis or hydrouret er. AORTA AND VESSELS: No aneurysm. No dissection. Renal arteries, SMA, celiac without stenosis. RETROPERITONEUM: No retroperitoneal adenopathy, hemorrhage or masses. BOWEL AND PERITONEAL CAVITY: Patient drank oral contrast. No CT evidence of bowel obstruction or john e intraperitoneal air or fluid. APPENDIX: Normal. ABDOMINAL WALL: Persistent fat containing umbilical hernia PELVIS: No mass or free fluid. Normal bladder. BONES: No significant or acute findings. OTHER: No other significant finding. IMPRESSION: Persistent distal esophageal wall thickening and luminal narrowing. Distal esophageal w all measures up to 1.7 cm in thickness just above the GE junction. Hypodensities in the liver worrisome for metastatic disease TECHNICAL DOCUMENTATION: JOB ID: [id number] Quality ID # [id number]: Final reports with documentation of one or more dose reduction techniques (e.g., Au tomated exposure control, adjustment of the mA and/or kV according to patient size, use of iterative reconstruction technique) 2010 [employer]- All Rights Reserved Reading location - IP/workstation name: [email or web address]
== END ==
LOC: RAD 12:39
PROVIDERS: ATTEND Surgery
DX: C15.9 Malignant neoplasm of esophagus, unspecified (principal); K42.9 Umbilical hernia without obstruction or gangrene
CPT/HCPCS: 71260; 74177

== ENCOUNTER 2018-11-08 07:08 | Inpatient (IN) | payer MEDICAID ==
[2018-11-01 09:31] LABS: HEMATOCRIT 39.6 % (37.9-51.0); HEMOGLOBIN 13.4 g/dL (13.5-17.0); MEAN CORPUSCULAR HEMOGLOBIN 29.6 pg (27.0-33.4); MEAN CORPUSCULAR HGB CONC 33.8 g/dL (32.0-36.0); MEAN CORPUSCULAR VOLUME 88 fl (80-97); PLATELET COUNT 206 10^3/uL (150-450); RED BLOOD COUNT 4.51 10^6/uL (4.35-5.55); WHITE BLOOD COUNT 4.7 10^3/uL (4.0-10.5)
[2018-11-01 09:58] LABS: ALANINE AMINOTRANSFERASE 15 U/L (21-72); ALKALINE PHOSPHATASE 50 U/L (38-126); ANION GAP 8 (5-19); ASPARTATE AMINO TRANSFERASE 21 U/L (17-59); BILIRUBIN,DIRECT 0.2 mg/dL (0.0-0.4); BILIRUBIN,TOTAL 0.6 mg/dL (0.2-1.3); BLOOD UREA NITROGEN 8 mg/dL (7-20); CALCIUM 9.6 mg/dL (8.4-10.2); CARBON DIOXIDE 28 mmol/L (22-30); CHLORIDE 104 mmol/L (98-107); GLUCOSE 103 mg/dL (75-110); POTASSIUM 4.2 mmol/L (3.6-5.0); TOTAL PROTEIN 6.8 g/dL (6.3-8.2)
--- NOTE | 2018-11-01 20:03 | EKG REPORT ---
SEVERITY:- ABNORMAL ECG - POSSIBLE ATRIAL ARRHYTHMIA, A-RATE 155 LEFT ANTERIOR FASCICULAR BLOCK : Confirmed by: Alicia Liu MD 01-Nov-2018 20:02:43
[~2018-11-08 07:08] MED LIST changes: -CARBOPLATIN IV PRN; +CEFAZOLIN SODIUM 2 GM in DEXTROSE 5%-WATER 100 ML IV PRN; -DEXAMETHASONE SOD PHOSPHATE 10 MG in NORMAL SALINE 50 ML IV PRN; -DIPHENHYDRAMINE HCL 50 MG in NORMAL SALINE 50 ML IV PRN; -FAMOTIDINE/PF 20 MG in NORMAL SALINE 50 ML IV PRN; +LACTATED RINGERS 1000 ML IV PRN; +LIDOCAINE 0.5% INJ-PF (5 MG/ML) 50 ML SDV SUBCUT PRN; +METRONIDAZOLE 500 MG/NS RTU 500 MG/100 ML RTUPB IV PRN; -NORMAL SALINE 250 ML IV PRN; -NORMAL SALINE IV PRN; -PACLITAXEL SEMI SYNTHETIC IV PRN; -PALONOSETRON 0.25 MG/5 ML SDV IV PRN
[2018-11-08] MEDS ORDERED: ONDANSETRON HCL INJ/PF 4 MG/2 ML SDV ONE (09:13)
[2018-11-08] MEDS ORDERED: MORPHINE SULFATE 10 MG/ML INJ ONE (09:13)
[2018-11-08] MEDS ORDERED: FENTANYL CITRATE INJ/PF 250 MCG/5 ML AMPULE ONE (09:13)
[2018-11-08] MEDS ORDERED: EPHEDRINE SULFATE INJ 50 MG/1 ML AMPULE ONE (09:13)
[2018-11-08] MEDS ORDERED: DEXAMETHASONE SOD PHOSPHATE INJ 4 MG/1 ML VIAL ONE (09:13)
[2018-11-08] MEDS ORDERED: PROPOFOL INJ 200 MG/20 ML VIAL IV ONE ×2 (09:14→16:00)
[2018-11-08] MEDS ORDERED: MIDAZOLAM 2 MG/2 ML INJ ONE ×2 (09:18→16:13)
[2018-11-08] MEDS ORDERED: BUPIVACAINE HCL 0.25% /EPINEPHRINE INJ/PF 30 ML SDV ONE (09:51)
[2018-11-08] MEDS ORDERED: METRONIDAZOLE 500 MG/NS RTU 500 MG/100 ML RTUPB IV ONE (11:08)
[2018-11-08] MEDS ORDERED: CEFAZOLIN INJ 1 GM VIAL ONE (11:08)
[2018-11-08] MEDS ORDERED: VECURONIUM BROMIDE INJ 10 MG VIAL IV ONE (12:04)
[2018-11-08] MEDS ORDERED: PHENYLEPHRINE HCL INJ/PF 10 MG/1 ML SDV ONE (12:04)
[2018-11-08] MEDS ORDERED: NEOSTIGMINE METHYLSULFATE 10 MG/10 ML VIAL ONE (12:04)
[2018-11-08] MEDS ORDERED: GLYCOPYRROLATE 1 MG/5 ML VIAL ONE (12:04)
[2018-11-08] MEDS ORDERED: SUCCINYLCHOLINE CHLORIDE INJ 200 MG/10 ML VIAL ONE (12:04)
[2018-11-08 13:18] LABS: HEMATOCRIT 36.3 % (37.9-51.0); HEMOGLOBIN 12.3 g/dL (13.5-17.0); MEAN CORPUSCULAR HEMOGLOBIN 30.5 pg (27.0-33.4); MEAN CORPUSCULAR VOLUME 90 fl (80-97); PLATELET COUNT 271 10^3/uL (150-450); RED BLOOD COUNT 4.05 10^6/uL (4.35-5.55); RED CELL DISTRIBUTION WIDTH 26.8 % (11.5-14.0)
[2018-11-08] MEDS ORDERED: FENTANYL CITRATE INJ/PF 100 MCG/2 ML AMPUL IV PRN ×3 (14:27)
[2018-11-08] MEDS ORDERED: DIPHENHYDRAMINE HCL 50 MG/ML VIAL IV PRN (14:27)
[2018-11-08] MEDS ORDERED: ONDANSETRON HCL INJ/PF 4 MG/2 ML SDV IV PRN ×2 (14:27→16:39)
[2018-11-08] MEDS ORDERED: MEPERIDINE HCL/PF INJ 25 MG/1 ML DISP.SYRIN IV PRN (14:27)
[2018-11-08] MEDS ORDERED: MORPHINE SULFATE 10 MG/ML INJ IV PRN (14:27)
[2018-11-08] MEDS ORDERED: PROMETHAZINE HCL INJ 25 MG/1 ML VIAL IV PRN ×2 (14:27)
[2018-11-08] MEDS ORDERED: OXYCODONE-ACETAMINOPHEN 5-325 MG TABLET PO PRN ×2 (14:27)
[2018-11-08] MEDS ORDERED: SUGAMMADEX SODIUM 200 MG/2 ML SDV IV ONE (15:49)
[2018-11-08] MEDS ORDERED: GLUCAGON,HUMAN RECOMB 1 MG INJ SUBCUT PRN (16:28)
[2018-11-08] MEDS ORDERED: DEXTROSE 50%-WATER 25 GM/50 ML DISP.SYRIN IV PRN ×2 (16:28)
[2018-11-08] MEDS ORDERED: DEXTROSE 40% GEL 15 GM TUBE PO PRN ×2 (16:28)
[2018-11-08] MEDS ORDERED: ALBUMIN HUMAN 5% INJ 25 GM/500 ML BOTTLE IV PRN (16:43)
[2018-11-08] MEDS ORDERED: MIDAZOLAM HCL 50 MG/100 ML RTUINJ ONE (16:50)
[2018-11-08] MEDS: MIDAZOLAM HCL 50 MG/100 ML RTUINJ IV PRN (16:55)
[2018-11-08] MEDS ORDERED: DIGOXIN INJ 0.5 MG/2 ML AMPULE IV ONE (17:00)
--- NOTE | 2018-11-08 17:04 | Operative Report ---
Nonrecallable Operative Report DATE OF SURGERY: 11/08/18 PREOPERATIVE DIAGNOSIS: esophageal cancer POSTOPERATIVE DIAGNOSIS: esophageal cancer OPERATION: esophagectomy SURGEON: SHINE DANIELS 1ST INTERNAL AUDITOR: SUHAIL FLORES ANESTHESIA: GA TISSUE REMOVED OR ALTERED: esophagus and stomach COMPLICATIONS: none ESTIMATED BLOOD LOSS: 300cc INTRAOPERATIVE FINDINGS: see dictation PROCEDURE: see dictation
[2018-11-08 17:26] LABS: HEMATOCRIT 37.5 % (37.9-51.0); HEMOGLOBIN 12.5 g/dL (13.5-17.0); MEAN CORPUSCULAR HEMOGLOBIN 30.3 pg (27.0-33.4); MEAN CORPUSCULAR HGB CONC 33.3 g/dL (32.0-36.0); MEAN CORPUSCULAR VOLUME 91 fl (80-97); PLATELET COUNT 295 10^3/uL (150-450); RED BLOOD COUNT 4.13 10^6/uL (4.35-5.55); RED CELL DISTRIBUTION WIDTH 27.2 % (11.5-14.0)
--- NOTE | 2018-11-08 17:26 | RADIOLOGY REPORT (SQ) ---
EXAM DESCRIPTION: CHEST SINGLE VIEW COMPLETED DATE/TIME: 11/08/2018 4:55 pm REASON FOR STUDY: ET TUBE PLACEMENT/ POST OR COMPARISON: 10/11/2018. EXAM PARAMETERS: NUMBER OF VIEWS: One view. TECHNIQUE: Single frontal radiographic view of the chest acquired. RADIATION DOSE: NA LIMITATIONS: None. FINDINGS: LUNGS AND PLEURA: A few scattered linear densities. No lobar infiltrates. No pleural eff usion or pneumothorax. MEDIASTINUM AND HILAR STRUCTURES: No masses. Contour normal. HEART AND VASCULAR STRUCTURES: Heart normal in size. Normal vasculature. BONES: No acute findings. HARDWARE: Tip of the endotracheal tube located 5 cm proximal to the taylor. Tip of the nasogastric t ube located in the upper abdomen with the side hole located in the lower thoracic region, approximate ly T10-11. Central line on the right side with the tip at the level of the superior vena cava. Vasc ular access port unchanged. Bilateral chest tubes with midline surgical drain and skin wendy on th e left side of the neck. OTHER: No other significant finding. IMPRESSION: POSTOPERATIVE CHEST WITH HARDWARE DESCRIBED. SCATTERED ATELECTASIS. NO PNEUMOTHORAX . TECHNICAL DOCUMENTATION: JOB ID: [id number] [employer]- All Rights Reserved Reading location - IP/workstation name: [email or web address]
[2018-11-08 17:42] LABS: ABSOLUTE LYMPHOCYTES# (MANUAL) 0.8 10^3/uL (0.5-4.7); ABSOLUTE MONOCYTES # (MANUAL) 0.7 10^3/uL (0.1-1.4); BAND NEUTROPHILS % (MANUAL) 4 % (3-5); BASOPHILS % (MANUAL) 0 % (0-2); EOSINOPHILS % (MANUAL) 0 % (0-6); LYMPHOCYTES % (MANUAL) 6 % (13-45); MONOCYTES % (MANUAL) 5 % (3-13); PLATELET COMMENT ADEQUATE; SEGMENTED NEUTROPHILS % (MAN) 85 % (42-78); TOTAL CELLS COUNTED 100
[2018-11-08 17:44] LABS: ANISOCYTOSIS 2+; HYPOCHROMASIA SLIGHT; POIKILOCYTOSIS 1+
[2018-11-08] MEDS ORDERED: ALBUMIN HUMAN 500 ML IV ONE (18:00)
[2018-11-08] MEDS ORDERED: CEFAZOLIN 2 GM/D5W RTU 2 GM/50 ML RTUPB IV SCH (18:00)
[2018-11-08] MEDS: CEFAZOLIN SODIUM 2 GM in DEXTROSE 5%-WATER 100 ML IV SCH ×2 (18:37→23:15)
[2018-11-08] MEDS: POTASSI CL 20 MEQ/D5-1/2NS 1L 1,000 ML IV PRN (18:40)
[2018-11-08] MEDS: MORPHINE SULFATE 10 MG/ML INJ IV PRN ×2 (18:52→23:59)
[2018-11-08 20:21] LABS: ARTERIAL BLOOD BASE EXCESS -5.8 mmol/L; ARTERIAL BLOOD HCO3 19.3 mmol/L (20-24); ARTERIAL BLOOD O2 SATURATION 97.4 % (94-98); ARTERIAL BLOOD PCO2 36.4 mmHg (35-45); ARTERIAL BLOOD PH 7.34 (7.35-7.45); ARTERIAL BLOOD PO2 102.6 mmHg (80-100); ARTERIAL BLOOD TOTAL CO2 20.4 mmol/L (23-27)
[2018-11-08 20:22] LABS: ARTERIAL BLOOD FIO2 40%
[2018-11-09] MEDS: POTASSI CL 20 MEQ/D5-1/2NS 1L 1,000 ML IV PRN ×3 (02:15→16:30)
[2018-11-09 04:41] LABS: ALANINE AMINOTRANSFERASE 59 U/L (21-72); ALBUMIN 2.6 g/dL (3.5-5.0); ALKALINE PHOSPHATASE 30 U/L (38-126); ASPARTATE AMINO TRANSFERASE 65 U/L (17-59); BILIRUBIN,DIRECT 0.2 mg/dL (0.0-0.4); BILIRUBIN,TOTAL 0.4 mg/dL (0.2-1.3); BLOOD UREA NITROGEN 6 mg/dL (7-20); CALCIUM 8.1 mg/dL (8.4-10.2); CARBON DIOXIDE 24 mmol/L (22-30); CHLORIDE 108 mmol/L (98-107); GLUCOSE 173 mg/dL (75-110); POTASSIUM 4.4 mmol/L (3.6-5.0); TOTAL PROTEIN 4.7 g/dL (6.3-8.2)
[2018-11-09 05:02] LABS: ANION GAP 4 (5-19)
[2018-11-09] MEDS: CEFAZOLIN SODIUM 2 GM in DEXTROSE 5%-WATER 100 ML IV SCH ×3 (05:27→18:27)
[2018-11-09] MEDS: MORPHINE SULFATE 10 MG/ML INJ IV PRN ×5 (05:38→23:50)
--- NOTE | 2018-11-09 07:45 | PDOC PROGRESS REPORT ---
Subjective Progress Note for:: 11/09/18 Subjective:: awake responsive following commands Reason For Visit: C15.9 MALIGNANT NEOPLASM OF ESOPHAGUS, UNSPECIFIED Physical Exam Vital Signs: Temp Pulse Resp BP Pulse Ox 99.0 F 104 H 0 L 106/71 96 11/09/18 06:00 11/08/18 19:44 11/09/18 06:00 11/09/18 05:20 11/09/18 06:00 Intake & Output 11/08/18 11/09/18 11/10/18 06:59 06:59 06:59 Intake Total 1802 Output Total 1999 Balance -198 Weight 86.18 kg 92.2 kg General appearance: PRESENT: no acute distress Head exam: PRESENT: normocephalic Eye exam: PRESENT: EOMI Ear exam: PRESENT: other Mouth exam: PRESENT: dry mucosa Teeth exam: PRESENT: poor dentation Neck exam: PRESENT: full ROM, other - dressing dry Respiratory exam: PRESENT: clear to auscultation jacy Cardiovascular exam: PRESENT: tachycardia Pulses: PRESENT: normal radial pulses, normal femoral pulses, normal dorsalis pedis pul GI/Abdominal exam: PRESENT: soft Rectal exam: PRESENT: deferred Gentrourinary exam: PRESENT: indwelling catheter Extremities exam: PRESENT: full ROM Musculoskeletal exam: PRESENT: full ROM Neurological exam: PRESENT: alert, awake, oriented to person Psychiatric exam: PRESENT: appropriate affect Skin exam: PRESENT: dry Results Laboratory Results: 11/08/18 17:00 11/09/18 04:05 11/08/18 11/08/18 11/08/18 13:00 13:00 17:00 WBC 12.0 H 14.0 H RBC 4.05 L 4.13 L Hgb 12.3 L 12.5 L Hct 36.3 L 37.5 L MCV 90 91 MCH 30.5 30.3 MCHC 34.0 33.3 RDW 26.8 H 27.2 H Plt Count 271 295 Seg Neutrophils % Not Reportable Lymphocytes % Not Reportable Monocytes % Not Reportable Eosinophils % Not Reportable Basophils % Not Reportable Absolute Neutrophils Not Reportable Absolute Lymphocytes Not Reportable Absolute Monocytes Not Reportable Absolute Eosinophils Not Reportable Absolute Basophils Not Reportable Carbonic Acid HCO3/H2CO3 Ratio ABG pH ABG pCO2 ABG pO2 ABG HCO3 ABG O2 Saturation ABG Base Excess FiO2 Sodium Potassium Chloride Carbon Dioxide Anion Gap BUN Creatinine Est GFR ( Amer) Est GFR (Non-Af Amer) Glucose Calcium Total Bilirubin AST ALT Alkaline Phosphatase Total Protein Albumin Blood Type A POSITIVE Antibody Screen NEGATIVE 11/08/18 11/09/18 20:10 04:05 WBC RBC Hgb Hct MCV MCH MCHC RDW Plt Count Seg Neutrophils % Lymphocytes % Monocytes % Eosinophils % Basophils % Absolute Neutrophils Absolute Lymphocytes Absolute Monocytes Absolute Eosinophils Absolute Basophils Carbonic Acid 1.10 HCO3/H2CO3 Ratio 17:1 ABG pH 7.34 L ABG pCO2 36.4 ABG pO2 102.6 H ABG HCO3 19.3 L ABG O2 Saturation 97.4 ABG Base Excess -5.8 FiO2 40% Sodium 135.5 L Potassium 4.4 Chloride 108 H Carbon Dioxide 24 Anion Gap 4 L BUN 6 L Creatinine 0.39 L Est GFR ( Amer) > 60 Est GFR (Non-Af Amer) > 60 Glucose 173 H Calcium 8.1 L Total Bilirubin 0.4 AST 65 H ALT 59 Alkaline Phosphatase 30 L Total Protein 4.7 L Albumin 2.6 L Blood Type Antibody Screen Assessment & Plan - Plan Summary Plan Summary: pt stable overnight labs reviwed responds to commands will check cxr wheen to extubation
[2018-11-09 07:56] LABS: ABSOLUTE LYMPHOCYTES (AUTO) 0.8 10^3/uL (0.5-4.7); ABSOLUTE MONOCYTES (AUTO) 1.4 10^3/uL (0.1-1.4); ABSOLUTE NEUT (AUTO) 12.8 10^3/uL (1.7-8.2); BASOPHILS % (AUTO) 0.2 % (0-2); EOSINOPHILS % (AUTO) 0.1 % (0-6); HEMATOCRIT 33.5 % (37.9-51.0); HEMOGLOBIN 11.5 g/dL (13.5-17.0); LYMPHOCYTES % (AUTO) 5.6 % (13-45); MEAN CORPUSCULAR HEMOGLOBIN 30.8 pg (27.0-33.4); MEAN CORPUSCULAR HGB CONC 34.3 g/dL (32.0-36.0); MEAN CORPUSCULAR VOLUME 90 fl (80-97); MONOCYTES % (AUTO) 9.5 % (3-13); PLATELET COUNT 246 10^3/uL (150-450); RED BLOOD COUNT 3.73 10^6/uL (4.35-5.55); RED CELL DISTRIBUTION WIDTH 27.2 % (11.5-14.0); SEGMENTED NEUTROPHILS % (AUTO) 84.6 % (42-78); TOTAL CELLS COUNTED % (AUTO) 100 %; WHITE BLOOD COUNT 15.1 10^3/uL (4.0-10.5)
[2018-11-09 08:57] LABS: ANISOCYTOSIS 3+; HYPOCHROMASIA SLIGHT; OVALOCYTES SLIGHT; PLATELET COMMENT ADEQUATE
[2018-11-09 08:58] LABS: TOXIC VACUOLATION PRESENT
--- NOTE | 2018-11-09 08:58 | RADIOLOGY REPORT (SQ) ---
EXAM DESCRIPTION: CHEST SINGLE VIEW COMPLETED DATE/TIME: 11/09/2018 8:46 am REASON FOR STUDY: ett placement COMPARISON: 11/08/2018 08/14/[address] chest 10/11/2018 EXAM PARAMETERS: NUMBER OF VIEWS: One view. TECHNIQUE: Single frontal radiographic view of the chest acquired. RADIATION DOSE: NA LIMITATIONS: None. FINDINGS: LUNGS AND PLEURA: Right-sided large bore chest tube unchanged. Minimal atelectasis at the right lung base. There is retrocardiac left consolidation likely atelectasis. The Dax-Faustin drain along the left posterior mediastinum is present, unchanged. No pneumothorax. No pleural effusions. MEDIASTINUM AND HILAR STRUCTURES: Posterior mediastinal Dax-Faustin drain to the left of the spine is unchanged HEART AND VASCULAR STRUCTURES: Heart normal in size. Normal vasculature. BONES: No acute findings. HARDWARE: Endotracheal tube tip 6 cm above the taylor. Left-sided permanent central line tip superio r vena cava. Right jugular central line tip superior vena cava. Right chest tube in place, no pneum othorax. Nasogastric tube tip and side port below the hemidiaphragms. OTHER: No other significant finding. IMPRESSION: Stable postoperative chest compared to yesterday TECHNICAL DOCUMENTATION: JOB ID: [id number] [employer]- All Rights Reserved Reading location - IP/workstation name: [email or web address]
[2018-11-09] MEDS: METOPROLOL TARTRATE PF/INJ 5 MG/5 ML SDV IV SCH ×5 (09:11→23:30)
[2018-11-09] MEDS: DIGOXIN INJ 0.5 MG/2 ML AMPULE IV SCH (09:12)
[2018-11-09] MEDS: MIDAZOLAM HCL 50 MG/100 ML RTUINJ IV PRN ×2 (09:16→17:59)
[2018-11-09 10:20] LABS: ARTERIAL BLOOD H2CO3 1.02 mmol/L (1.05-1.35); ARTERIAL BLOOD HCO3 22.6 mmol/L (20-24); ARTERIAL BLOOD PH 7.44 (7.35-7.45); ARTERIAL BLOOD PO2 71.2 mmHg (80-100); ARTERIAL BLOOD TOTAL CO2 23.6 mmol/L (23-27)
[2018-11-09 10:25] LABS: ARTERIAL BLOOD FIO2 35%
[2018-11-09] MEDS: PANTOPRAZOLE SODIUM 40 MG VIAL IV SCH ×2 (11:28→21:32)
[2018-11-09] MEDS ORDERED: ALBUMIN HUMAN 500 ML IV ONE (16:00)
[2018-11-09] MEDS ORDERED: NORMAL SALINE 1000 ML 1,000 ML IV ONE ×2 (16:00→21:45)
[2018-11-09] MEDS ORDERED: ACETAMINOPHEN 650 MG SUPP.RECT PR ONE (20:05)
[2018-11-09] MEDS ORDERED: METOPROLOL TARTRATE PF/INJ 5 MG/5 ML SDV IV PRN (23:05)
[2018-11-10] MEDS: POTASSI CL 20 MEQ/D5-1/2NS 1L 1,000 ML IV PRN ×4 (00:09→23:42)
[2018-11-10] MEDS: MIDAZOLAM HCL 50 MG/100 ML RTUINJ IV PRN ×3 (00:30→13:53)
[2018-11-10] MEDS: CEFAZOLIN SODIUM 2 GM in DEXTROSE 5%-WATER 100 ML IV SCH ×2 (00:32→05:24)
[2018-11-10] MEDS ORDERED: METOPROLOL TARTRATE PF/INJ 5 MG/5 ML SDV IV PRN (00:34)
[2018-11-10] MEDS: ACETAMINOPHEN 650 MG SUPP.RECT PR PRN ×2 (03:39→16:24)
[2018-11-10] MEDS: MORPHINE SULFATE 10 MG/ML INJ IV PRN ×5 (03:39→21:55)
[2018-11-10] MEDS: METOPROLOL TARTRATE PF/INJ 5 MG/5 ML SDV IV SCH ×6 (04:33→23:41)
[2018-11-10 05:00] LABS: ARTERIAL BLOOD BASE EXCESS -1.8 mmol/L; ARTERIAL BLOOD H2CO3 1.01 mmol/L (1.05-1.35); ARTERIAL BLOOD HCO3 21.9 mmol/L (20-24); ARTERIAL BLOOD O2 SATURATION 96.7 % (94-98); ARTERIAL BLOOD PCO2 33.5 mmHg (35-45); ARTERIAL BLOOD PH 7.43 (7.35-7.45); ARTERIAL BLOOD PO2 84.3 mmHg (80-100)
[2018-11-10 05:01] LABS: ARTERIAL BLOOD FIO2 45%
[2018-11-10 05:14] LABS: ALANINE AMINOTRANSFERASE 38 U/L (21-72); ALBUMIN 2.4 g/dL (3.5-5.0); ALKALINE PHOSPHATASE 37 U/L (38-126); ANION GAP 6 (5-19); ASPARTATE AMINO TRANSFERASE 28 U/L (17-59); BILIRUBIN,DIRECT 0.2 mg/dL (0.0-0.4); BILIRUBIN,TOTAL 0.5 mg/dL (0.2-1.3); BLOOD UREA NITROGEN 4 mg/dL (7-20); CALCIUM 7.7 mg/dL (8.4-10.2); CARBON DIOXIDE 24 mmol/L (22-30); CHLORIDE 104 mmol/L (98-107); DIGOXIN 0.47 ng/mL (0.8-2.0); GLUCOSE 109 mg/dL (75-110); TOTAL PROTEIN 4.4 g/dL (6.3-8.2)
[2018-11-10 05:17] LABS: POTASSIUM 3.8 mmol/L (3.6-5.0)
[2018-11-10 07:31] LABS: HEMATOCRIT 29.2 % (37.9-51.0); HEMOGLOBIN 9.9 g/dL (13.5-17.0); MEAN CORPUSCULAR VOLUME 91 fl (80-97); PLATELET COUNT 210 10^3/uL (150-450); RED BLOOD COUNT 3.21 10^6/uL (4.35-5.55); RED CELL DISTRIBUTION WIDTH 26.5 % (11.5-14.0); WHITE BLOOD COUNT 19.3 10^3/uL (4.0-10.5)
[2018-11-10 07:59] LABS: ABSOLUTE LYMPHOCYTES# (MANUAL) 0.8 10^3/uL (0.5-4.7); ABSOLUTE MONOCYTES # (MANUAL) 1.5 10^3/uL (0.1-1.4); BASOPHILS % (MANUAL) 0 % (0-2); EOSINOPHILS % (MANUAL) 0 % (0-6); LYMPHOCYTES % (MANUAL) 4 % (13-45); MONOCYTES % (MANUAL) 8 % (3-13); SEGMENTED NEUTROPHILS % (MAN) 88 % (42-78); TOTAL CELLS COUNTED 100
[2018-11-10 08:01] LABS: ANISOCYTOSIS 3+; OVALOCYTES SLIGHT; PLATELET COMMENT ADEQUATE; POIKILOCYTOSIS SLIGHT; POLYCHROMASIA SLIGHT
--- NOTE | 2018-11-10 09:00 | RADIOLOGY REPORT (SQ) ---
EXAM DESCRIPTION: CHEST SINGLE VIEW COMPLETED DATE/TIME: 11/10/2018 6:54 am REASON FOR STUDY: bilat pneumothorax COMPARISON: 11/09/2018. EXAM PARAMETERS: NUMBER OF VIEWS: One view. TECHNIQUE: Single frontal radiographic view of the chest acquired. RADIATION DOSE: NA LIMITATIONS: None. FINDINGS: LUNGS AND PLEURA: Scattered linear densities. No pleural effusion. No pneumothorax. MEDIASTINUM AND HILAR STRUCTURES: No masses. Contour normal. HEART AND VASCULAR STRUCTURES: Heart normal in size. Normal vasculature. BONES: No acute findings. HARDWARE: Stable bilateral chest tubes. Stable endotracheal tube, nasogastric tube, and central line . Vascular port. Surgical wendy in the soft tissues of the neck. OTHER: No other significant finding. IMPRESSION: NO SIGNIFICANT INTERVAL CHANGE. STABLE POSTOPERATIVE FINDINGS. BILATERAL CHEST TUBES W ITH SCATTERED ATELECTASIS. NO PNEUMOTHORAX. TECHNICAL DOCUMENTATION: JOB ID: [id number] [employer]- All Rights Reserved Reading location - IP/workstation name: [email or web address]
[2018-11-10] MEDS: PANTOPRAZOLE SODIUM 40 MG VIAL IV SCH ×2 (10:19→21:39)
[2018-11-10] MEDS: DIGOXIN INJ 0.5 MG/2 ML AMPULE IV SCH (10:19)
--- NOTE | 2018-11-10 11:22 | PDOC PROGRESS REPORT ---
Subjective Progress Note for:: 11/10/18 Subjective:: intubated, sedated Reason For Visit: C15.9 MALIGNANT NEOPLASM OF ESOPHAGUS, UNSPECIFIED Physical Exam Vital Signs: Temp Pulse Resp BP Pulse Ox 100.0 F 113 H 22 H 111/56 L 97 11/10/18 08:00 11/10/18 10:00 11/10/18 10:00 11/10/18 10:00 11/10/18 10:00 Intake & Output 11/09/18 11/10/18 11/11/18 06:59 06:59 06:59 Intake Total 4052 5196 Output Total 4250 3070 310 Balance -198 2126 -310 Weight 92.2 kg 95.3 kg General appearance: PRESENT: no acute distress Head exam: PRESENT: normocephalic Eye exam: PRESENT: EOMI Ear exam: PRESENT: TM's normal bilaterally Mouth exam: PRESENT: moist Respiratory exam: PRESENT: clear to auscultation jacy, other - intubated Cardiovascular exam: PRESENT: RRR Pulses: PRESENT: +2 pedal pulses bilateral GI/Abdominal exam: PRESENT: soft Rectal exam: PRESENT: deferred Gentrourinary exam: PRESENT: indwelling catheter Extremities exam: PRESENT: +1 edema Skin exam: PRESENT: dry Results Laboratory Results: 11/10/18 04:41 11/10/18 04:41 11/10/18 11/10/18 11/10/18 04:41 04:41 04:41 WBC 19.3 H RBC 3.21 L Hgb 9.9 L Hct 29.2 L MCV 91 MCH 31.0 MCHC 34.0 RDW 26.5 H Plt Count 210 Seg Neutrophils % Not Reportable Lymphocytes % Not Reportable Monocytes % Not Reportable Eosinophils % Not Reportable Basophils % Not Reportable Absolute Neutrophils Not Reportable Absolute Lymphocytes Not Reportable Absolute Monocytes Not Reportable Absolute Eosinophils Not Reportable Absolute Basophils Not Reportable Carbonic Acid 1.01 L HCO3/H2CO3 Ratio 21:1 ABG pH 7.43 ABG pCO2 33.5 L ABG pO2 84.3 ABG HCO3 21.9 ABG O2 Saturation 96.7 ABG Base Excess -1.8 FiO2 45% Sodium 133.8 L Potassium 3.8 Chloride 104 Carbon Dioxide 24 Anion Gap 6 BUN 4 L Creatinine 0.36 L Est GFR ( Amer) > 60 Est GFR (Non-Af Amer) > 60 Glucose 109 Calcium 7.7 L Magnesium 1.4 L Total Bilirubin 0.5 AST 28 ALT 38 Alkaline Phosphatase 37 L Total Protein 4.4 L Albumin 2.4 L Impressions: Chest X-Ray 11/10/18 06:00 IMPRESSION: NO SIGNIFICANT INTERVAL CHANGE. STABLE POSTOPERATIVE FINDINGS. BILATERAL CHEST TUBES WITH SCATTERED ATELECTASIS. NO PNEUMOTHORAX. Assessment & Plan - Plan Summary Plan Summary: stable pod 2 vss chest xr reviewd labs reviwewd wbc up to 19 will dc ancef start zosyn
--- NOTE | 2018-11-10 11:28 | Progress Note ---
Provider Note Provider Note: the operative note for this pt has been dictated traffic worker still pending.
[2018-11-10] MEDS: PIPERACILLIN SODIUM/TAZOBACTAM 3.375 GM in NORMAL SALINE 100 ML IV SCH ×2 (16:24→20:49)
[2018-11-11] MEDS: MORPHINE SULFATE 10 MG/ML INJ IV PRN ×3 (01:55→19:35)
[2018-11-11] MEDS: PIPERACILLIN SODIUM/TAZOBACTAM 3.375 GM in NORMAL SALINE 100 ML IV SCH ×4 (02:15→20:36)
[2018-11-11] MEDS: MIDAZOLAM HCL 50 MG/100 ML RTUINJ IV PRN (02:25)
[2018-11-11] MEDS: METOPROLOL TARTRATE PF/INJ 5 MG/5 ML SDV IV SCH ×6 (04:16→23:16)
[2018-11-11] MEDS: POTASSI CL 20 MEQ/D5-1/2NS 1L 1,000 ML IV PRN ×3 (06:51→23:50)
[2018-11-11 07:22] LABS: HEMOGLOBIN 8.6 g/dL (13.5-17.0); MEAN CORPUSCULAR HEMOGLOBIN 31.5 pg (27.0-33.4); MEAN CORPUSCULAR HGB CONC 34.3 g/dL (32.0-36.0); MEAN CORPUSCULAR VOLUME 92 fl (80-97); PLATELET COUNT 166 10^3/uL (150-450); RED BLOOD COUNT 2.72 10^6/uL (4.35-5.55); RED CELL DISTRIBUTION WIDTH 25.8 % (11.5-14.0); WHITE BLOOD COUNT 11.6 10^3/uL (4.0-10.5)
--- NOTE | 2018-11-11 07:33 | PDOC PROGRESS REPORT ---
Subjective Progress Note for:: 11/11/18 Subjective:: intubated, responds appropriately Reason For Visit: C15.9 MALIGNANT NEOPLASM OF ESOPHAGUS, UNSPECIFIED Physical Exam Vital Signs: Temp Pulse Resp BP Pulse Ox 99.7 F 101 H 17 93/55 L 100 11/11/18 06:45 11/10/18 19:00 11/11/18 06:45 11/10/18 18:33 11/11/18 06:45 Intake & Output 11/10/18 11/11/18 11/12/18 06:59 06:59 06:59 Intake Total 6296 3500 Output Total 3070 4340 Balance 3226 -840 Weight 95.3 kg 96.2 kg General appearance: PRESENT: no acute distress Head exam: PRESENT: normocephalic Eye exam: PRESENT: EOMI Ear exam: PRESENT: normal external ear exam Mouth exam: PRESENT: moist Neck exam: PRESENT: full ROM Respiratory exam: PRESENT: crackles, unlabored, other - intubated Cardiovascular exam: PRESENT: RRR Pulses: PRESENT: normal radial pulses, normal femoral pulses, +2 pedal pulses bilateral GI/Abdominal exam: PRESENT: hypoactive bowel sounds, soft Rectal exam: PRESENT: deferred Extremities exam: PRESENT: full ROM Musculoskeletal exam: PRESENT: full ROM Neurological exam: PRESENT: awake Psychiatric exam: PRESENT: appropriate affect Skin exam: PRESENT: dry Results Laboratory Results: 11/10/18 04:41 11/10/18 04:41 WBC 19.3 H RBC 3.21 L Hgb 9.9 L Hct 29.2 L MCV 91 MCH 31.0 MCHC 34.0 RDW 26.5 H Plt Count 210 Seg Neutrophils % Not Reportable Lymphocytes % Not Reportable Monocytes % Not Reportable Eosinophils % Not Reportable Basophils % Not Reportable Absolute Neutrophils Not Reportable Absolute Lymphocytes Not Reportable Absolute Monocytes Not Reportable Absolute Eosinophils Not Reportable Absolute Basophils Not Reportable Impressions: Chest X-Ray 11/10/18 06:00 IMPRESSION: NO SIGNIFICANT INTERVAL CHANGE. STABLE POSTOPERATIVE FINDINGS. BILATERAL CHEST TUBES WITH SCATTERED ATELECTASIS. NO PNEUMOTHORAX. Assessment & Plan - Plan Summary Plan Summary: remains intubated no issues overnight chest tubes still on suction, serosanguineous pulse around 100 roz vent. fio2 35% labs pending this am still on versed drip plan will start feeds today via j-tube wean off versed extubation per pulmonary
[2018-11-11 07:40] LABS: ARTERIAL BLOOD BASE EXCESS 1.5 mmol/L; ARTERIAL BLOOD H2CO3 1.16 mmol/L (1.05-1.35); ARTERIAL BLOOD HCO3 25.7 mmol/L (20-24); ARTERIAL BLOOD O2 SATURATION 95.5 % (94-98); ARTERIAL BLOOD PCO2 38.7 mmHg (35-45); ARTERIAL BLOOD PH 7.44 (7.35-7.45); ARTERIAL BLOOD PO2 74.8 mmHg (80-100); ARTERIAL BLOOD TOTAL CO2 26.9 mmol/L (23-27)
[2018-11-11 07:41] LABS: ARTERIAL BLOOD FIO2 35%
[2018-11-11 07:47] LABS: ABSOLUTE LYMPHOCYTES# (MANUAL) 0.9 10^3/uL (0.5-4.7); ABSOLUTE MONOCYTES # (MANUAL) 0.3 10^3/uL (0.1-1.4); BASOPHILS % (MANUAL) 2 % (0-2); EOSINOPHILS % (MANUAL) 2 % (0-6); LYMPHOCYTES % (MANUAL) 8 % (13-45); MONOCYTES % (MANUAL) 3 % (3-13); SEGMENTED NEUTROPHILS % (MAN) 85 % (42-78); TOTAL CELLS COUNTED 100
[2018-11-11 07:48] LABS: ANISOCYTOSIS 3+; OVALOCYTES SLIGHT; PLATELET CLUMPS A; POIKILOCYTOSIS SLIGHT; POLYCHROMASIA 1+; TOXIC GRANULATION 1+
[2018-11-11 07:51] LABS: PLATELET COMMENT ADEQUATE
[2018-11-11 08:00] LABS: BLOOD UREA NITROGEN 5 mg/dL (7-20); CALCIUM 7.5 mg/dL (8.4-10.2); CHLORIDE 104 mmol/L (98-107); GLUCOSE 103 mg/dL (75-110); POTASSIUM 3.6 mmol/L (3.6-5.0)
[2018-11-11 08:06] LABS: CARBON DIOXIDE 28 mmol/L (22-30)
[2018-11-11 08:08] LABS: ANION GAP 2 (5-19)
[2018-11-11] MEDS: PANTOPRAZOLE SODIUM 40 MG VIAL IV SCH ×2 (09:08→21:25)
[2018-11-11] MEDS: DIGOXIN INJ 0.5 MG/2 ML AMPULE IV SCH (09:09)
[2018-11-11] MEDS: ACETAMINOPHEN 650 MG SUPP.RECT PR PRN (14:34)
[2018-11-12] MEDS: MORPHINE SULFATE 10 MG/ML INJ IV PRN ×5 (01:16→21:25)
[2018-11-12] MEDS: PIPERACILLIN SODIUM/TAZOBACTAM 3.375 GM in NORMAL SALINE 100 ML IV SCH ×4 (03:34→21:26)
[2018-11-12] MEDS: METOPROLOL TARTRATE PF/INJ 5 MG/5 ML SDV IV SCH ×6 (03:35→23:55)
[2018-11-12 06:23] LABS: ARTERIAL BLOOD H2CO3 1.16 mmol/L (1.05-1.35); ARTERIAL BLOOD HCO3 26.1 mmol/L (20-24); ARTERIAL BLOOD O2 SATURATION 95.9 % (94-98); ARTERIAL BLOOD PCO2 38.7 mmHg (35-45); ARTERIAL BLOOD PH 7.45 (7.35-7.45); ARTERIAL BLOOD PO2 77.3 mmHg (80-100); ARTERIAL BLOOD TOTAL CO2 27.2 mmol/L (23-27)
[2018-11-12 06:27] LABS: ARTERIAL BLOOD FIO2 30%
[2018-11-12 06:47] LABS: BLOOD UREA NITROGEN 3 mg/dL (7-20); CALCIUM 7.8 mg/dL (8.4-10.2); GLUCOSE 116 mg/dL (75-110); PHOSPHORUS 3.4 mg/dL (2.5-4.5); POTASSIUM 3.7 mmol/L (3.6-5.0)
[2018-11-12 06:53] LABS: ANION GAP 3 (5-19); CARBON DIOXIDE 28 mmol/L (22-30); CHLORIDE 105 mmol/L (98-107)
--- NOTE | 2018-11-12 07:20 | PDOC PROGRESS REPORT ---
Subjective Progress Note for:: 11/12/18 Subjective:: post esophagectomy Reason For Visit: C15.9 MALIGNANT NEOPLASM OF ESOPHAGUS, UNSPECIFIED Physical Exam Vital Signs: Temp Pulse Resp BP Pulse Ox 99.0 F 118 H 15 107/58 L 98 11/12/18 07:00 11/11/18 20:00 11/12/18 07:00 11/11/18 18:00 11/12/18 07:00 Intake & Output 11/11/18 11/12/18 11/13/18 06:59 06:59 06:59 Intake Total 3500 2510 49 Output Total 4340 4287 Balance -826 -5058 49 Weight 96.2 kg 92.8 kg General appearance: PRESENT: no acute distress Head exam: PRESENT: normocephalic Eye exam: PRESENT: EOMI Ear exam: PRESENT: normal external ear exam Mouth exam: PRESENT: moist Neck exam: PRESENT: full ROM Respiratory exam: PRESENT: clear to auscultation jacy Cardiovascular exam: PRESENT: RRR Pulses: PRESENT: +2 pedal pulses bilateral GI/Abdominal exam: PRESENT: soft Rectal exam: PRESENT: deferred Extremities exam: PRESENT: +1 edema Musculoskeletal exam: PRESENT: full ROM Neurological exam: PRESENT: alert, awake Skin exam: PRESENT: dry Results Laboratory Results: 11/11/18 07:07 11/12/18 06:07 11/11/18 11/11/18 11/11/18 07:07 07:22 07:22 WBC 11.6 H RBC 2.72 L Hgb 8.6 L Hct 25.0 L MCV 92 MCH 31.5 MCHC 34.3 RDW 25.8 H Plt Count 166 Seg Neutrophils % Not Reportable Lymphocytes % Not Reportable Monocytes % Not Reportable Eosinophils % Not Reportable Basophils % Not Reportable Absolute Neutrophils Not Reportable Absolute Lymphocytes Not Reportable Absolute Monocytes Not Reportable Absolute Eosinophils Not Reportable Absolute Basophils Not Reportable Carbonic Acid 1.16 HCO3/H2CO3 Ratio 22:1 ABG pH 7.44 ABG pCO2 38.7 ABG pO2 74.8 L ABG HCO3 25.7 H ABG O2 Saturation 95.5 ABG Base Excess 1.5 FiO2 35% Sodium 134.0 L Potassium 3.6 Chloride 104 Carbon Dioxide 28 Anion Gap 2 L BUN 5 L Creatinine 0.40 L Est GFR ( Amer) > 60 Est GFR (Non-Af Amer) > 60 Glucose 103 Calcium 7.5 L Phosphorus Magnesium 11/12/18 11/12/18 06:07 06:07 WBC RBC Hgb Hct MCV MCH MCHC RDW Plt Count Seg Neutrophils % Lymphocytes % Monocytes % Eosinophils % Basophils % Absolute Neutrophils Absolute Lymphocytes Absolute Monocytes Absolute Eosinophils Absolute Basophils Carbonic Acid 1.16 HCO3/H2CO3 Ratio 22:1 ABG pH 7.45 ABG pCO2 38.7 ABG pO2 77.3 L ABG HCO3 26.1 H ABG O2 Saturation 95.9 ABG Base Excess 2.0 FiO2 30% Sodium 136.4 L Potassium 3.7 Chloride 105 Carbon Dioxide 28 Anion Gap 3 L BUN 3 L Creatinine 0.35 L Est GFR ( Amer) > 60 Est GFR (Non-Af Amer) > 60 Glucose 116 H Calcium 7.8 L Phosphorus 3.4 Magnesium 1.7 Assessment & Plan - Plan Summary Plan Summary: s/p esophagectomy extubated yesterday vss, afeb wbc 11k still sedated will waterseal chest tubes cont j-tube feeds decrease sedation cont iv abx
--- NOTE | 2018-11-12 09:14 | RADIOLOGY REPORT (SQ) ---
EXAM DESCRIPTION: CHEST SINGLE VIEW COMPLETED DATE/TIME: 11/12/2018 6:48 am REASON FOR STUDY: s/p surgery COMPARISON: 11/10/2018 NUMBER OF VIEWS: One view. TECHNIQUE: Single frontal radiographic view of the chest acquired. LIMITATIONS: None. FINDINGS: LUNGS AND PLEURA: Since prior study the patient has been extubated. Infusion port, right- sided central line and NG tube remain in place. There are bilateral chest tubes. No pneumothorax. Minimal basilar atelectasis probable small left effusion. MEDIASTINUM AND HILAR STRUCTURES: No masses. Contour normal. HEART AND VASCULAR STRUCTURES: Heart normal in size. Normal vasculature. BONES: No acute findings. HARDWARE: None in the chest. OTHER: No other significant finding. IMPRESSION: Interval removal of the endotracheal tube. No other significant changes. TECHNICAL DOCUMENTATION: JOB ID: [id number] [employer]- All Rights Reserved Reading location - IP/workstation name: [email or web address]
[2018-11-12] MEDS: POTASSI CL 20 MEQ/D5-1/2NS 1L 1,000 ML IV PRN ×2 (09:23→17:27)
[2018-11-12 09:34] LABS: HEMATOCRIT 26.1 % (37.9-51.0); MEAN CORPUSCULAR HEMOGLOBIN 31.6 pg (27.0-33.4); MEAN CORPUSCULAR HGB CONC 34.5 g/dL (32.0-36.0); MEAN CORPUSCULAR VOLUME 92 fl (80-97); PLATELET COUNT 206 10^3/uL (150-450); RED BLOOD COUNT 2.84 10^6/uL (4.35-5.55); RED CELL DISTRIBUTION WIDTH 25.1 % (11.5-14.0); WHITE BLOOD COUNT 8.6 10^3/uL (4.0-10.5)
[2018-11-12 09:54] LABS: ABSOLUTE LYMPHOCYTES# (MANUAL) 0.4 10^3/uL (0.5-4.7); ABSOLUTE MONOCYTES # (MANUAL) 0.9 10^3/uL (0.1-1.4); ANISOCYTOSIS 3+; BASOPHILS % (MANUAL) 0 % (0-2); EOSINOPHILS % (MANUAL) 2 % (0-6); LYMPHOCYTES % (MANUAL) 5 % (13-45); MONOCYTES % (MANUAL) 10 % (3-13); OVALOCYTES SLIGHT; PLATELET COMMENT ADEQUATE; POIKILOCYTOSIS SLIGHT; POLYCHROMASIA SLIGHT; SEGMENTED NEUTROPHILS % (MAN) 83 % (42-78); TOTAL CELLS COUNTED 100
[2018-11-12] MEDS: DIGOXIN INJ 0.5 MG/2 ML AMPULE IV SCH (10:32)
--- NOTE | 2018-11-12 10:32 | OPERATIVE REPORT E ---
Operative Report NAME: CATHY CARDONA : 1960 AGE: 58Y DATE OF SURGERY: 11/08/2018 ROOM: 607 PREOPERATIVE DIAGNOSIS: Esophageal cancer. POSTOPERATIVE DIAGNOSIS: Esophageal cancer. OPERATION PERFORMED: Laparoscopic-assisted transhiatal esophagectomy and central line placement. SURGEON: SHINE DANIELS M.D. PROCEDURE: The patient was brought to the operating room in awake, alert, and stable condition, placed on the operating table in supine position, induced under general anesthesia and intubated. After appropriate timeout, attention was turned to the right neck. The right neck was prepped and draped in the usual sterile fashion for a central line placement. After appropriate landmarks were identified, the right internal jugular vein was accessed with a 22-gauge needle as a finer needle. Then, using a 16-gauge needle, the vein was accessed. Through the needle, a wire was placed into the superior vena cava. Then, over the wire, a dilator was used to dilate the tract and a triple-lumen catheter was then placed over the wire and fixed in place with 2-0 silk suture. This would be used during the procedure. Once this was accomplished, we then prepped and draped the patient in the usual sterile fashion for a laparoscopic-assisted transhiatal esophagectomy. A small supraumbilical incision was made with a 15-blade and a Veress needle was placed in the abdominal cavity. The abdomen was insufflated with 6 L of CO2 gas. Then, a 5 mm port was placed into the abdominal cavity. Intra-abdominal visualization revealed no evidence of a Veress needle or trocar injury. Two epigastric ports were placed under direct vision in his right and left upper quadrant. A 5 mm port was placed under direct vision in the left lower quadrant, 5 mm port for the camera. We took down adhesions of omentum to the anterior abdominal wall that were adhesed into a previous hernia sac with a LigaSure device. Once this was accomplished, we turned attention to the stomach. The greater curvature of the stomach was identified. A point was picked along the mid greater curvature away from the gastricepiploic artery where we began our division of the gastricolic ligament. We continued this around the greater curvature to the angle of HIS to completely free up the fundus of the stomach. We identified the left slip of the kanu. We then turned attention to the gastrohepatic omentum and divided this with a LigaSure device to identify the right slip of the kanu. Once this was accomplished, we then began our mobilization of the distal esophagus, which was fixed with a significant desmoplastic reaction from the preoperative radiation. Slowly, we did meticulously mobilize the distal esophagus up into the posterior mediastinum and then anteriorly under the heart for a distance of about 15 cm using the LigaSure device. It became more difficult because of the size of the tumor and we were unable to separate the adventitia of the esophagus and the desmoplastic reaction of the radiation from the pleural peritoneum. Therefore, we entered both chest cavities. We continued our dissection proximally until we could not reach any higher about the level of the taylor of the esophagus. Once this was accomplished, we then removed the LigaSure device and made a midline incision from the xiphoid to just above the umbilicus. Dissection was carried down through subcutaneous tissue with Bovie cautery. We used the Omni retractor to get better access to the upper abdomen. Once this was done, we completed our distal esophageal dissection with blunt dissection and divided both vagus nerves between Hemoclips. This allowed good mobilization of the esophagus. I then widely Kocherized the duodenum with blunt and sharp dissection to mobilize the second portion of the duodenum and the pylorus where the pylorus easily reached up to the hiatus. Once this was done, we then turned attention to the left neck. We made a curvilinear incision along the border of the anterior sternocleidomastoid muscle with a 10-blade and we carried our dissection down through subcutaneous tissue and playtsma muscle with Bovie cautery and then divided the platysma muscle. Once this was divided, we identified the omohyoid muscle, which was also divided with Bovie cautery. We retracted the sternocleidomastoid muscle laterally and identified the sternothyroid strap muscles, which were divided with Bovie cautery. This brought us down to the thyroid gland, which we placed a Riya clamp on and retracted that medially. We then continued our dissection down posterior to the thyroid gland, identifying the recurrent laryngeal nerve and preserving that. We identified the tracheoesophageal groove and mobilized the cervical esophagus away from the posterior portion of the thyroid. We then slung that with a 0.5-inch Shereen drain and used that for traction. I continued my dissection of the proximal esophagus bluntly down to the thoracic inlet using blunt dissection, mobilizing the cervical esophagus down to just behind the brachiocephalic artery. Then, with one hand in the chest and one hand in the thoracic inlet, we were able to completely mobilize the esophagus. We then divided it over a Lesa clamp and attached a shereen drain to the distal esophagus and then pulled the esophagus with the attached shereen drain down into the abdomen. We then divided the esophagus away from the Shereen drain. Once this was done, we divided the left gastric artery between tonsil clamps and oversewed the stay side of the left gastric artery with 2-0 silk suture ligature. This allowed us to bring the esophagus and stomach up through the abdominal wound. Once this was accomplished, we then came across the proximal stomach cardia and distal esophagus with multiple findings of the endo HERNÁN stapler with a blue load to excise off the cardia of the stomach, and the esophagus, removing the specimen. This was sent down to pathology. Pathology confirmed carcinoma of the esophagus with clear margins. We then oversewed that entire length of that staple line with Lembert style sutures with 2-0 silk to cover up the stomach staple line. Once this was done, we then identified the pylorus. I performed a pyloromyotomy with first incising the serosa with Bovie cautery and then bluntly dividing the muscle with a tonsil clamp, being careful not to injure the underlying mucosa. We checked that numerous times making sure that there was no evidence of any leak and there was none. I then attached the fundus of the stomach remnant to the [place] drain that was in the posterior mediastinum with 2-0 silk suture and then pulled the stomach up into the posterior mediastinum to the neck incision. We then fixed the fundus of the stomach to the posterior cervical fascia with 2 stitches of 0 Vicryl to avoid any slippage of the stomach down through the mediastinum. Once this was done, we removed the [place] drain and we performed an esophagogastrostomy in 1 layer with interrupted 2-0 Vicryl sutures. Once this was done, we passed the NG tube through the anastomosis to have it lie just below the pylorus. Once this was accomplished, we then turned attention to the previous done jejunostomy. The patient had a loop of bowel fixed to his anterior abdominal wall on the left side and I took this down with sharp dissection, never entering the bowel. We then used a new Dobhoff type feeding tube 8-Indian, passed it through the anterior abdominal wall from the skin down into the abdominal cavity and then passed it into the proximal jejunum, fixing it there with a pursestring 2-0 Chromic suture and then performing a Witzel technique using 2-0 silk to fix the tube to the jejunum. We fixed that then to the anterior abdominal wall with interrupted placed 2-0 silk sutures, creating a Witzel jejunostomy. Once this was accomplished, we copiously irrigated the abdominal cavity, suctioned dry, checked for hemostasis. It was intact. We placed a Dax-Faustin drain up in through the hiatus and brought it out through a separate stab wound in the right upper quadrant. We allowed it to lie across the pyloroplasty. We then closed the midline fascia with running double-looped 0 PDS suture and closed the skin with standard skin clips. In the neck, we closed the platysma muscle with interrupted 3-0 Vicryl suture and closed the skin with standard skin clips. We did place a [place] drain half inch next to the esophagogastrostomy and brought it out through a stab wound on the left anterior chest just inferior to the clavicle. Once both wounds were closed, I turned attention to the chest. In the anterior axillary line just at the level of the nipple in the sixth intercostal space on both sides, I made a transverse incision over the sixth rib and bluntly gained access to the chest cavity and placed a 32-Indian chest tube on both chest cavities and attached those to 2 separate Pleur-evacs. We fixed those chest tubes to the skin with a pursestring suture of 0 silk. Sterile dressing was applied. This completed the procedure. The patient was then transferred to intensive care unit stable, remaining intubated. Estimated blood loss for the procedure was 300 mL. Sponge and needle counts were correct x2. DICTATING PHYSICIAN: SHINE DANIELS M.D. [id number] PHY#: [id number] ID: [id number] JOB#: [id number] ACCT: [id number] cc:SHINE DANIELS M.D. > [facility]
[2018-11-12] MEDS: PANTOPRAZOLE SODIUM 40 MG VIAL IV SCH (10:33)
[2018-11-13] MEDS: PIPERACILLIN SODIUM/TAZOBACTAM 3.375 GM in NORMAL SALINE 100 ML IV SCH ×4 (02:18→21:04)
[2018-11-13] MEDS: POTASSI CL 20 MEQ/D5-1/2NS 1L 1,000 ML IV PRN ×3 (02:18→21:03)
[2018-11-13 03:39] LABS: ARTERIAL BLOOD BASE EXCESS 2.8 mmol/L; ARTERIAL BLOOD O2 SATURATION 95.5 % (94-98); ARTERIAL BLOOD PCO2 39.9 mmHg (35-45); ARTERIAL BLOOD PH 7.45 (7.35-7.45); ARTERIAL BLOOD PO2 74.1 mmHg (80-100); ARTERIAL BLOOD TOTAL CO2 28.2 mmol/L (23-27)
[2018-11-13 03:40] LABS: ARTERIAL BLOOD FIO2 2 L
[2018-11-13 03:57] LABS: BLOOD UREA NITROGEN 2 mg/dL (7-20); GLUCOSE 118 mg/dL (75-110); PHOSPHORUS 3.7 mg/dL (2.5-4.5); POTASSIUM 3.5 mmol/L (3.6-5.0)
[2018-11-13 04:02] LABS: ANION GAP 5 (5-19); CARBON DIOXIDE 29 mmol/L (22-30); CHLORIDE 103 mmol/L (98-107)
[2018-11-13 04:04] LABS: PREALBUMIN 6.3 mg/dL (17.6-36.0)
[2018-11-13] MEDS: METOPROLOL TARTRATE PF/INJ 5 MG/5 ML SDV IV SCH ×6 (04:57→23:37)
--- NOTE | 2018-11-13 07:30 | PDOC PROGRESS REPORT ---
Subjective Progress Note for:: 11/13/18 Subjective:: awake, alter, verbalizing well wants out of bed Reason For Visit: C15.9 MALIGNANT NEOPLASM OF ESOPHAGUS, UNSPECIFIED Physical Exam Vital Signs: Temp Pulse Resp BP Pulse Ox 99.1 F 113 H 18 127/78 H 96 11/13/18 06:30 11/12/18 20:00 11/13/18 06:30 11/13/18 04:56 11/13/18 06:30 Intake & Output 11/12/18 11/13/18 11/14/18 06:59 06:59 06:59 Intake Total 3510 2619 Output Total 5309 4280 Balance -1129 -1195 Weight 92.8 kg 90.6 kg General appearance: PRESENT: mild distress Head exam: PRESENT: normocephalic Eye exam: PRESENT: EOMI Ear exam: PRESENT: normal external ear exam Mouth exam: PRESENT: moist Teeth exam: PRESENT: poor dentation Neck exam: PRESENT: full ROM Respiratory exam: PRESENT: unlabored, other - rt base rhonchi Cardiovascular exam: PRESENT: RRR Pulses: PRESENT: +2 pedal pulses bilateral Vascular exam: PRESENT: normal capillary refill GI/Abdominal exam: PRESENT: soft Rectal exam: PRESENT: deferred Extremities exam: PRESENT: full ROM Musculoskeletal exam: PRESENT: full ROM Neurological exam: PRESENT: alert, awake, oriented to person Psychiatric exam: PRESENT: appropriate affect Skin exam: PRESENT: dry Results Laboratory Results: 11/12/18 09:15 11/13/18 03:23 11/12/18 11/13/18 11/13/18 09:15 03:23 03:23 WBC 8.6 RBC 2.84 L Hgb 9.0 L Hct 26.1 L MCV 92 MCH 31.6 MCHC 34.5 RDW 25.1 H Plt Count 206 Seg Neutrophils % Not Reportable Lymphocytes % Not Reportable Monocytes % Not Reportable Eosinophils % Not Reportable Basophils % Not Reportable Absolute Neutrophils Not Reportable Absolute Lymphocytes Not Reportable Absolute Monocytes Not Reportable Absolute Eosinophils Not Reportable Absolute Basophils Not Reportable Carbonic Acid 1.20 HCO3/H2CO3 Ratio 22:1 ABG pH 7.45 ABG pCO2 39.9 ABG pO2 74.1 L ABG HCO3 27.0 H ABG O2 Saturation 95.5 ABG Base Excess 2.8 FiO2 2 L Sodium 137.1 Potassium 3.5 L Chloride 103 Carbon Dioxide 29 Anion Gap 5 BUN 2 L Creatinine 0.34 L Est GFR ( Amer) > 60 Est GFR (Non-Af Amer) > 60 Glucose 118 H Calcium 8.0 L Phosphorus 3.7 Magnesium 1.7 Prealbumin 6.3 L Assessment & Plan - Plan Summary Plan Summary: out of bed today dc artline cont pulm toliet cont ng increase tube feeds poss tx to reg floor.
--- NOTE | 2018-11-13 08:16 | RADIOLOGY REPORT (SQ) ---
EXAM DESCRIPTION: CHEST SINGLE VIEW COMPLETED DATE/TIME: 11/13/2018 6:24 am REASON FOR STUDY: pna C15.9 MALIGNANT NEOPLASM OF ESOPHAGUS, UNSPECIFIED COMPARISON: 11/12/2018 NUMBER OF VIEWS: One view. TECHNIQUE: Single frontal radiographic image of the chest acquired. LIMITATIONS: None. FINDINGS: LUNGS AND PLEURA: There is a right apical pneumothorax on today's study approximately 10%. Bilateral chest tubes remain in place with basilar atelectasis left greater than right. Central li ne, Hncwkl-[id number]-Kghm and NG tube remain in place. MEDIASTINUM AND HILAR STRUCTURES: Stable heart size and mediastinal structures. HEART AND VASCULAR STRUCTURES: Stable appearance. SUPPORT DEVICES: Appropriate location without change. BONES: No acute findings. OTHER: No other significant finding. IMPRESSION: Approximately 10% right apical pneumothorax new from yesterday. No other interval john strickland TECHNICAL DOCUMENTATION: JOB ID: [id number] [employer]- All Rights Reserved Reading location - IP/workstation name: [email or web address]
[2018-11-13 09:16] LABS: ABSOLUTE EOSINOPHILS # (AUTO) 0.4 10^3/uL (0.0-0.6); ABSOLUTE LYMPHOCYTES (AUTO) 0.4 10^3/uL (0.5-4.7); ABSOLUTE MONOCYTES (AUTO) 1.1 10^3/uL (0.1-1.4); ABSOLUTE NEUT (AUTO) 5.9 10^3/uL (1.7-8.2); BASOPHILS % (AUTO) 0.2 % (0-2); EOSINOPHILS % (AUTO) 4.6 % (0-6); HEMATOCRIT 27.5 % (37.9-51.0); HEMOGLOBIN 9.4 g/dL (13.5-17.0); LYMPHOCYTES % (AUTO) 5.2 % (13-45); MEAN CORPUSCULAR HEMOGLOBIN 31.5 pg (27.0-33.4); MEAN CORPUSCULAR HGB CONC 34.1 g/dL (32.0-36.0); MEAN CORPUSCULAR VOLUME 93 fl (80-97); MONOCYTES % (AUTO) 13.9 % (3-13); PLATELET COUNT 233 10^3/uL (150-450); RED BLOOD COUNT 2.97 10^6/uL (4.35-5.55); RED CELL DISTRIBUTION WIDTH 24.7 % (11.5-14.0); SEGMENTED NEUTROPHILS % (AUTO) 76.1 % (42-78); TOTAL CELLS COUNTED % (AUTO) 100 %; WHITE BLOOD COUNT 7.8 10^3/uL (4.0-10.5)
[2018-11-13] MEDS ORDERED: POTASSI CL 20 MEQ/50 ML RIDER 0 MEQ/0 ML RTUPB IV ONE (09:26)
[2018-11-13] MEDS ORDERED: D5NS IV ONE (09:27)
[2018-11-13] MEDS ORDERED: POTASSI CL IV ONE (09:27)
[2018-11-13] MEDS: DIGOXIN INJ 0.5 MG/2 ML AMPULE IV SCH (09:40)
[2018-11-13 10:01] LABS: ANISOCYTOSIS 3+; OVALOCYTES 1+; POIKILOCYTOSIS 1+; TOXIC GRANULATION 1+
[2018-11-13 10:02] LABS: PLATELET COMMENT ADEQUATE
[2018-11-13] MEDS: MORPHINE SULFATE 10 MG/ML INJ IV PRN ×2 (13:47→21:03)
[2018-11-14] MEDS: PIPERACILLIN SODIUM/TAZOBACTAM 3.375 GM in NORMAL SALINE 100 ML IV SCH ×4 (03:02→20:08)
[2018-11-14] MEDS: METOPROLOL TARTRATE PF/INJ 5 MG/5 ML SDV IV SCH ×6 (03:04→23:43)
[2018-11-14 04:06] LABS: BLOOD UREA NITROGEN 3 mg/dL (7-20); CALCIUM 8.3 mg/dL (8.4-10.2); CARBON DIOXIDE 31 mmol/L (22-30); GLUCOSE 115 mg/dL (75-110); PHOSPHORUS 3.8 mg/dL (2.5-4.5); POTASSIUM 3.7 mmol/L (3.6-5.0)
[2018-11-14 04:07] LABS: ARTERIAL BLOOD BASE EXCESS 3.7 mmol/L; ARTERIAL BLOOD H2CO3 1.25 mmol/L (1.05-1.35); ARTERIAL BLOOD HCO3 28.1 mmol/L (20-24); ARTERIAL BLOOD O2 SATURATION 95.1 % (94-98); ARTERIAL BLOOD PCO2 41.4 mmHg (35-45); ARTERIAL BLOOD PH 7.45 (7.35-7.45); ARTERIAL BLOOD PO2 72.1 mmHg (80-100); ARTERIAL BLOOD TOTAL CO2 29.3 mmol/L (23-27)
[2018-11-14 04:08] LABS: ARTERIAL BLOOD FIO2 2L
[2018-11-14 04:11] LABS: CHLORIDE 103 mmol/L (98-107)
[2018-11-14 04:19] LABS: ANION GAP 5 (5-19)
[2018-11-14] MEDS: POTASSI CL 20 MEQ/D5-1/2NS 1L 1,000 ML IV PRN (05:59)
--- NOTE | 2018-11-14 07:32 | PDOC PROGRESS REPORT ---
Subjective Progress Note for:: 11/14/18 Subjective:: feels ok was up to chair yesteday passed stool. Reason For Visit: C15.9 MALIGNANT NEOPLASM OF ESOPHAGUS, UNSPECIFIED Physical Exam Vital Signs: Temp Pulse Resp BP Pulse Ox 99.3 F 114 H 21 H 143/84 H 95 11/14/18 06:00 11/13/18 20:00 11/14/18 06:00 11/14/18 05:34 11/14/18 06:00 Intake & Output 11/13/18 11/14/18 11/15/18 06:59 06:59 06:59 Intake Total 2719 3750 Output Total 4281 0402 Balance -1561 -2983 Weight 90.6 kg 89.4 kg General appearance: PRESENT: no acute distress Head exam: PRESENT: normocephalic Eye exam: PRESENT: EOMI Mouth exam: PRESENT: moist Neck exam: PRESENT: full ROM Respiratory exam: PRESENT: unlabored Cardiovascular exam: PRESENT: RRR Pulses: PRESENT: +2 pedal pulses bilateral Vascular exam: PRESENT: normal capillary refill GI/Abdominal exam: PRESENT: soft Rectal exam: PRESENT: deferred Extremities exam: PRESENT: full ROM Musculoskeletal exam: PRESENT: full ROM Neurological exam: PRESENT: alert, awake, oriented to person Psychiatric exam: PRESENT: appropriate affect Skin exam: PRESENT: dry Results Laboratory Results: 11/13/18 09:00 11/14/18 03:30 11/13/18 11/14/18 11/14/18 09:00 03:30 03:54 WBC 7.8 RBC 2.97 L Hgb 9.4 L Hct 27.5 L MCV 93 MCH 31.5 MCHC 34.1 RDW 24.7 H Plt Count 233 Seg Neutrophils % 76.1 Lymphocytes % 5.2 L Monocytes % 13.9 H Eosinophils % 4.6 Basophils % 0.2 Absolute Neutrophils 5.9 Absolute Lymphocytes 0.4 L Absolute Monocytes 1.1 Absolute Eosinophils 0.4 Absolute Basophils 0.0 Carbonic Acid 1.25 HCO3/H2CO3 Ratio 22:1 ABG pH 7.45 ABG pCO2 41.4 ABG pO2 72.1 L ABG HCO3 28.1 H ABG O2 Saturation 95.1 ABG Base Excess 3.7 FiO2 2L Sodium 139.1 Potassium 3.7 Chloride 103 Carbon Dioxide 31 H Anion Gap 5 BUN 3 L Creatinine 0.32 L Est GFR ( Amer) > 60 Est GFR (Non-Af Amer) > 60 Glucose 115 H Calcium 8.3 L Phosphorus 3.8 Magnesium 1.9 Assessment & Plan - Plan Summary Plan Summary: will remove rt chest tube and muhammad start sips of clear liquids increase tube feeds will tx to reg floor ugi in am.
[2018-11-14] MEDS ORDERED: FUROSEMIDE INJ/PF 20 MG/2 ML SDV IV ONE (08:00)
--- NOTE | 2018-11-14 08:39 | RADIOLOGY REPORT (SQ) ---
EXAM DESCRIPTION: CHEST SINGLE VIEW COMPLETED DATE/TIME: 11/14/2018 6:39 am REASON FOR STUDY: copd COMPARISON: 11/13/2018 EXAM PARAMETERS: NUMBER OF VIEWS: One view. TECHNIQUE: Single frontal radiographic view of the chest acquired. RADIATION DOSE: NA LIMITATIONS: None. FINDINGS: LUNGS AND PLEURA: Stable small right apical pneumothorax, approximately 10%. Mild left ba silar linear opacities, likely atelectasis. No large effusion. MEDIASTINUM AND HILAR STRUCTURES: Stable mediastinum with widening superiorly. HEART AND VASCULAR STRUCTURES: Stable cardiac silhouette. BONES: No new osseous findings. HARDWARE: Right internal jugular central venous catheter tip overlies SVC. Left-sided subclavian bas ed chest port with catheter tip at cavoatrial junction. Enteric tube tip below diaphragm but exclude d by collimation. Bilateral large bore chest tubes, stable. Mediastinal drain, stable. OTHER: No other significant finding. IMPRESSION: Stable small right sided pneumothorax, approximately 10%. No evidence of new cardiopulm onary process. Stable support lines and tubes as above. TECHNICAL DOCUMENTATION: JOB ID: [id number] [employer]- All Rights Reserved Reading location - IP/workstation name: [email or web address]
[2018-11-14 08:47] LABS: ABSOLUTE EOSINOPHILS # (AUTO) 0.4 10^3/uL (0.0-0.6); ABSOLUTE LYMPHOCYTES (AUTO) 0.4 10^3/uL (0.5-4.7); ABSOLUTE NEUT (AUTO) 5.7 10^3/uL (1.7-8.2); BASOPHILS % (AUTO) 0.2 % (0-2); EOSINOPHILS % (AUTO) 4.8 % (0-6); HEMATOCRIT 27.1 % (37.9-51.0); HEMOGLOBIN 9.4 g/dL (13.5-17.0); LYMPHOCYTES % (AUTO) 5.7 % (13-45); MEAN CORPUSCULAR HEMOGLOBIN 31.6 pg (27.0-33.4); MEAN CORPUSCULAR HGB CONC 34.5 g/dL (32.0-36.0); MEAN CORPUSCULAR VOLUME 92 fl (80-97); MONOCYTES % (AUTO) 12.9 % (3-13); PLATELET COUNT 238 10^3/uL (150-450); RED BLOOD COUNT 2.96 10^6/uL (4.35-5.55); RED CELL DISTRIBUTION WIDTH 24.3 % (11.5-14.0); SEGMENTED NEUTROPHILS % (AUTO) 76.4 % (42-78); TOTAL CELLS COUNTED % (AUTO) 100 %; WHITE BLOOD COUNT 7.4 10^3/uL (4.0-10.5)
[2018-11-14 09:15] LABS: ANISOCYTOSIS 3+; OVALOCYTES 1+; PLATELET COMMENT ADEQUATE; POIKILOCYTOSIS 1+; POLYCHROMASIA SLIGHT; TOXIC GRANULATION 1+
[2018-11-14] MEDS: DIGOXIN INJ 0.5 MG/2 ML AMPULE IV SCH (11:28)
[2018-11-14] MEDS: MORPHINE SULFATE 10 MG/ML INJ IV PRN ×3 (11:33→23:42)
[2018-11-15] MEDS: POTASSI CL 20 MEQ/D5-1/2NS 1L 1,000 ML IV PRN
[2018-11-15] MEDS: PIPERACILLIN SODIUM/TAZOBACTAM 3.375 GM in NORMAL SALINE 100 ML IV SCH ×4 (02:46→20:45)
[2018-11-15] MEDS: MORPHINE SULFATE 10 MG/ML INJ IV PRN ×5 (02:50→23:51)
[2018-11-15] MEDS: METOPROLOL TARTRATE PF/INJ 5 MG/5 ML SDV IV SCH ×5 (05:00→20:45)
[2018-11-15 05:01] LABS: ARTERIAL BLOOD BASE EXCESS 5.7 mmol/L; ARTERIAL BLOOD FIO2 2L; ARTERIAL BLOOD H2CO3 1.23 mmol/L (1.05-1.35); ARTERIAL BLOOD HCO3 29.7 mmol/L (20-24); ARTERIAL BLOOD O2 SATURATION 92.5 % (94-98); ARTERIAL BLOOD PH 7.48 (7.35-7.45); ARTERIAL BLOOD PO2 59.8 mmHg (80-100)
[2018-11-15 05:15] LABS: BLOOD UREA NITROGEN 8 mg/dL (7-20); CALCIUM 8.4 mg/dL (8.4-10.2); GLUCOSE 106 mg/dL (75-110); POTASSIUM 4.1 mmol/L (3.6-5.0)
[2018-11-15 05:20] LABS: CARBON DIOXIDE 32 mmol/L (22-30); CHLORIDE 101 mmol/L (98-107)
[2018-11-15 05:23] LABS: ANION GAP 4 (5-19)
--- NOTE | 2018-11-15 07:34 | PDOC PROGRESS REPORT ---
Subjective Progress Note for:: 11/15/18 Subjective:: feels ok Reason For Visit: C15.9 MALIGNANT NEOPLASM OF ESOPHAGUS, UNSPECIFIED Physical Exam Vital Signs: Temp Pulse Resp BP Pulse Ox 98 F 95 14 103/67 95 11/14/18 23:43 11/14/18 20:01 11/14/18 20:01 11/14/18 20:01 11/14/18 20:01 Intake & Output 11/14/18 11/15/18 11/16/18 06:59 06:59 06:59 Intake Total 3850 685 Output Total 5605 0390 Balance -9465 -4165 Weight 89.4 kg 86.1 kg General appearance: PRESENT: no acute distress Head exam: PRESENT: normocephalic Eye exam: PRESENT: EOMI Ear exam: PRESENT: TM's normal bilaterally Mouth exam: PRESENT: moist Teeth exam: PRESENT: poor dentation Neck exam: PRESENT: full ROM Respiratory exam: PRESENT: clear to auscultation jacy, unlabored Cardiovascular exam: PRESENT: RRR Pulses: PRESENT: +2 pedal pulses bilateral GI/Abdominal exam: PRESENT: soft Rectal exam: PRESENT: deferred Extremities exam: PRESENT: +1 edema Musculoskeletal exam: PRESENT: full ROM Neurological exam: PRESENT: alert, awake, oriented to person, oriented to place Psychiatric exam: PRESENT: appropriate affect Skin exam: PRESENT: dry Results Laboratory Results: 11/14/18 08:30 11/15/18 04:25 11/14/18 11/15/18 11/15/18 08:30 04:25 04:25 WBC 7.4 RBC 2.96 L Hgb 9.4 L Hct 27.1 L MCV 92 MCH 31.6 MCHC 34.5 RDW 24.3 H Plt Count 238 Seg Neutrophils % 76.4 Lymphocytes % 5.7 L Monocytes % 12.9 Eosinophils % 4.8 Basophils % 0.2 Absolute Neutrophils 5.7 Absolute Lymphocytes 0.4 L Absolute Monocytes 1.0 Absolute Eosinophils 0.4 Absolute Basophils 0.0 Carbonic Acid 1.23 HCO3/H2CO3 Ratio 24:1 ABG pH 7.48 H ABG pCO2 41.0 ABG pO2 59.8 L ABG HCO3 29.7 H ABG O2 Saturation 92.5 L ABG Base Excess 5.7 FiO2 2L Sodium 137.1 Potassium 4.1 Chloride 101 Carbon Dioxide 32 H Anion Gap 4 L BUN 8 Creatinine 0.36 L Est GFR ( Amer) > 60 Est GFR (Non-Af Amer) > 60 Glucose 106 Calcium 8.4 Magnesium 2.0 Assessment & Plan - Plan Summary Plan Summary: doing ok wbc wnl small effusion on rt after ct removed yesterday will obtain ugi today.
[2018-11-15 07:55] LABS: ABSOLUTE EOSINOPHILS # (AUTO) 0.5 10^3/uL (0.0-0.6); ABSOLUTE LYMPHOCYTES (AUTO) 0.5 10^3/uL (0.5-4.7); ABSOLUTE NEUT (AUTO) 5.2 10^3/uL (1.7-8.2); BASOPHILS % (AUTO) 0.3 % (0-2); EOSINOPHILS % (AUTO) 6.4 % (0-6); HEMATOCRIT 27.3 % (37.9-51.0); HEMOGLOBIN 9.3 g/dL (13.5-17.0); LYMPHOCYTES % (AUTO) 6.7 % (13-45); MEAN CORPUSCULAR HEMOGLOBIN 31.5 pg (27.0-33.4); MEAN CORPUSCULAR HGB CONC 34.1 g/dL (32.0-36.0); MEAN CORPUSCULAR VOLUME 92 fl (80-97); MONOCYTES % (AUTO) 13.9 % (3-13); PLATELET COUNT 278 10^3/uL (150-450); RED BLOOD COUNT 2.96 10^6/uL (4.35-5.55); RED CELL DISTRIBUTION WIDTH 24.4 % (11.5-14.0); SEGMENTED NEUTROPHILS % (AUTO) 72.7 % (42-78); TOTAL CELLS COUNTED % (AUTO) 100 %; WHITE BLOOD COUNT 7.2 10^3/uL (4.0-10.5)
--- NOTE | 2018-11-15 08:12 | RADIOLOGY REPORT (SQ) ---
EXAM DESCRIPTION: CHEST SINGLE VIEW COMPLETED DATE/TIME: 11/15/2018 7:07 am REASON FOR STUDY: small R pneumothorax COMPARISON: 11/14/2018. EXAM PARAMETERS: NUMBER OF VIEWS: One view. TECHNIQUE: Single frontal radiographic view of the chest acquired. RADIATION DOSE: NA LIMITATIONS: None. FINDINGS: LUNGS AND PLEURA: 10% right apical pneumothorax unchanged. Scattered basilar densities, l ikely atelectasis, also unchanged. MEDIASTINUM AND HILAR STRUCTURES: No masses. Contour normal. HEART AND VASCULAR STRUCTURES: Heart normal in size. Normal vasculature. BONES: No acute findings. HARDWARE: Stable chest tubes. Nasogastric tube, the central line, and vascular port. OTHER: No other significant finding. IMPRESSION: STABLE APPEARANCE OF THE CHEST. 10% RIGHT APICAL PNEUMOTHORAX UNCHANGED. TECHNICAL DOCUMENTATION: JOB ID: [id number] [employer]- All Rights Reserved Reading location - IP/workstation name: [email or web address]
[2018-11-15 08:54] LABS: ANISOCYTOSIS 3+; POIKILOCYTOSIS 1+; TOXIC GRANULATION 1+
[2018-11-15 08:55] LABS: OVALOCYTES 1+; PLATELET COMMENT ADEQUATE; TEAR DROP CELLS SLIGHT
[2018-11-15] MEDS: DIGOXIN INJ 0.5 MG/2 ML AMPULE IV SCH (10:59)
--- NOTE | 2018-11-15 11:47 | RADIOLOGY REPORT (SQ) ---
EXAM DESCRIPTION: UGI SERIES COMPLETED DATE/TIME: 11/15/2018 10:02 am REASON FOR STUDY: s/p esophagectomy C15.9 MALIGNANT NEOPLASM OF ESOPHAGUS, UNSPECIFIED COMPARISON: None. TECHNIQUE: Under fluoroscopic guidance, patient ingested water soluble contrast. Fluoroscopic spot i mages and routine radiographic images acquired and stored on PACS. LIMITATIONS: None. FLUOROSCOPY TIME: 3 minutes 30 seconds of fluoroscopy was used. 27 images saved to PACS. FINDINGS: NEUROMUSCULAR COORDINATION OF SWALLOW: Normal. No aspiration. POSTOP ESOPHAGUS: Patient is status post esophagectomy with gastric pull-through. There are surgica l wendy overlying the neck area. Multiple drain tubes are in place. The anastomosis in the cervic al esophagus appears intact without evidence of leak or extravasation of contrast. An NG tube is in place with the tip in the distal portion of the gastric pull-through and lies below the diaphragm and hiatus. Contrast cannot be seen extending beyond this point. There is an area of narrowing of the distal portion of the stomach, below the diaphragm, approximately 3 or 4 cm above the tip of the NG t ube that may represent the pylorus which appears open. Contrast can not be seen entering into the pr oximal small bowel. This could be related to postoperative edema. Follow-up as clinically indicated . OTHER: No other significant finding. IMPRESSION: POSTOPERATIVE CHANGES SHOW NO EVIDENCE OF ANASTOMOTIC LEAK OR EXTRAVASATION. AREA OF NA RROWING OF THE DISTAL PORTION OF THE GASTRIC PULL-THROUGH, BELOW THE LEVEL OF THE DIAPHRAGM, MAY REPR ESENT AN OPEN PYLORUS. CONTRAST CAN NOT BE SEEN ENTERING INTO THE PROXIMAL SMALL BOWEL. POSTOPERATI VE EDEMA MAY BE CAUSING THIS DELAY IN GASTRIC EMPTYING. IMAGES WERE DISCUSSED AND REVIEWED WITH DR. DANIELS. FOLLOW-UP IMAGING WILL BE OBTAINED. COMMENT: Quality ID [id number]: Final reports for procedures using fluoroscopy that document radiation exp osure indices, or exposure time and number of fluorographic images (if radiation exposure indices are not available) TECHNICAL DOCUMENTATION: JOB ID: [id number] [employer]- All Rights Reserved Reading location - IP/workstation name: [email or web address]
--- NOTE | 2018-11-15 12:43 | RADIOLOGY REPORT (SQ) ---
EXAM DESCRIPTION: KUB/ABDOMEN (SINGLE VIEW) COMPLETED DATE/TIME: 11/15/2018 12:33 pm REASON FOR STUDY: f/u ugi C15.9 MALIGNANT NEOPLASM OF ESOPHAGUS, UNSPECIFIED COMPARISON: Barium swallow done earlier in the day. NUMBER OF VIEWS: One view. TECHNIQUE: Supine radiographic image of the abdomen acquired. LIMITATIONS: None. FINDINGS: BOWEL GAS PATTERN: Surgical changes of esophagectomy and gastric pull-through. Persistent contrast in the stomach. Very faint contrast is present in the proximal small bowel loops. No dila peterson bowel loops. CALCIFICATIONS: No suspicious calcifications. SOFT TISSUES: No gross mass or suggestion of organomegaly. HARDWARE: Nasogastric tube, surgical drains, and clips. BONES: No acute fracture. No worrisome bone lesions. OTHER: No other significant finding. IMPRESSION: PERSISTENT CONTRAST IN THE STOMACH. FAINT CONTRAST IS PRESENT IN THE PROXIMAL SMALL BOW EL LOOPS. FINDINGS MAY BE DUE TO DELAYED GASTRIC EMPTYING SECONDARY TO POSTOPERATIVE EDEMA. NO COMP LETE OBSTRUCTION. TECHNICAL DOCUMENTATION: JOB ID: [id number] [employer]- All Rights Reserved Reading location - IP/workstation name: [email or web address]
[2018-11-15] MEDS ORDERED: ONDANSETRON HCL INJ/PF 4 MG/2 ML SDV IV PRN (13:30)
[2018-11-16] MEDS: POTASSI CL 20 MEQ/D5-1/2NS 1L 1,000 ML IV PRN ×2 (00:03→21:19)
[2018-11-16] MEDS: METOPROLOL TARTRATE PF/INJ 5 MG/5 ML SDV IV SCH ×7 (00:12→23:31)
[2018-11-16] MEDS: MORPHINE SULFATE 10 MG/ML INJ IV PRN ×3 (05:37→23:24)
[2018-11-16] MEDS: PIPERACILLIN SODIUM/TAZOBACTAM 3.375 GM in NORMAL SALINE 100 ML IV SCH ×4 (05:37→21:11)
--- NOTE | 2018-11-16 07:39 | PDOC PROGRESS REPORT ---
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, UNSPECIFIED Physical Exam Vital Signs: Temp Pulse Resp BP Pulse Ox 98.7 F 110 H 16 100/65 90 L 11/15/18 23:46 11/15/18 23:46 11/15/18 23:46 11/15/18 23:46 11/15/18 23:46 Intake & Output 11/15/18 11/16/18 11/17/18 06:59 06:59 06:59 Intake Total 685 1300 Output Total 3080 1580 20 Balance -2395 -280 -20 Weight 86.1 kg 86.2 kg General appearance: PRESENT: no acute distress Head exam: PRESENT: normocephalic Eye exam: PRESENT: EOMI Ear exam: PRESENT: normal external ear exam Mouth exam: PRESENT: moist Neck exam: PRESENT: full ROM Respiratory exam: PRESENT: other - clear, but decreased at bases bilat Cardiovascular exam: PRESENT: RRR Pulses: PRESENT: +1 pedal pulses bilateral GI/Abdominal exam: PRESENT: soft Rectal exam: PRESENT: deferred Extremities exam: PRESENT: full ROM Musculoskeletal exam: PRESENT: full ROM Neurological exam: PRESENT: alert, awake, oriented to person, oriented to place Skin exam: PRESENT: dry Results Laboratory Results: 11/15/18 04:25 11/15/18 04:25 11/15/18 04:25 WBC 7.2 RBC 2.96 L Hgb 9.3 L Hct 27.3 L MCV 92 MCH 31.5 MCHC 34.1 RDW 24.4 H Plt Count 278 Seg Neutrophils % 72.7 Lymphocytes % 6.7 L Monocytes % 13.9 H Eosinophils % 6.4 H Basophils % 0.3 Absolute Neutrophils 5.2 Absolute Lymphocytes 0.5 Absolute Monocytes 1.0 Absolute Eosinophils 0.5 Absolute Basophils 0.0 Impressions: KUB X-Ray 11/15/18 00:00 IMPRESSION: PERSISTENT CONTRAST IN THE STOMACH. FAINT CONTRAST IS PRESENT IN THE PROXIMAL SMALL BOWEL LOOPS. FINDINGS MAY BE DUE TO DELAYED GASTRIC EMPTYING SECONDARY TO POSTOPERATIVE EDEMA. NO COMPLETE OBSTRUCTION. Upper GI Series 11/15/18 00:00 IMPRESSION: POSTOPERATIVE CHANGES SHOW NO EVIDENCE OF ANASTOMOTIC LEAK OR EXTRAVASATION. AREA OF NARROWING OF THE DISTAL PORTION OF THE GASTRIC PULL- THROUGH, BELOW THE LEVEL OF THE DIAPHRAGM, MAY REPRESENT AN OPEN PYLORUS. CONTRAST CAN NOT BE SEEN ENTERING INTO THE PROXIMAL SMALL BOWEL. POSTOPERATIVE EDEMA MAY BE CAUSING THIS DELAY IN GASTRIC EMPTYING. IMAGES WERE DISCUSSED AND REVIEWED WITH DR. DANIELS. FOLLOW-UP IMAGING WILL BE OBTAINED. Chest X-Ray 11/15/18 06:00 IMPRESSION: STABLE APPEARANCE OF THE CHEST. 10% RIGHT APICAL PNEUMOTHORAX UNCHANGED. Assessment & Plan - Plan Summary Plan Summary: doing ok passing flatus, no stool cough pulled his ng last pm ugi reviewed, contrast did not traverse the pylorus plan repeat kub and cxr today lasix increase tube feeds sips of clears
--- NOTE | 2018-11-16 08:31 | RADIOLOGY REPORT (SQ) ---
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 TECHNIQUE: Supine radiographic image of the abdomen acquired. LIMITATIONS: None. FINDINGS: BOWEL GAS PATTERN: Gas pattern is nonobstructive. There is contrast in the colon. Draina ge catheter overlies the left mid abdomen. CALCIFICATIONS: No suspicious calcifications. SOFT TISSUES: No gross mass or suggestion of organomegaly. HARDWARE: There are clips in the midline. BONES: No acute fracture. No worrisome bone lesions. OTHER: No other significant finding. IMPRESSION: Nonobstructive gas pattern. There is contrast in the colon. TECHNICAL DOCUMENTATION: JOB ID: [id number] [employer]- All Rights Reserved Reading location - IP/workstation name: [email or web address]
--- NOTE | 2018-11-16 08:35 | RADIOLOGY REPORT (SQ) ---
EXAM DESCRIPTION: CHEST SINGLE VIEW COMPLETED DATE/TIME: 11/16/2018 7:58 am REASON FOR STUDY: s/p esophagectomy COMPARISON: 11/15/2018 NUMBER OF VIEWS: One view. TECHNIQUE: Single frontal radiographic view of the chest acquired. LIMITATIONS: None. FINDINGS: LUNGS AND PLEURA: There is bibasilar atelectasis left greater than right. Orujam-R-Ahyx r emains in place. Persistent small right apical pneumothorax. There is a small amount of subcutaneou s air on the left. Suspect small left apical pneumothorax as well. Large-bore left-sided chest tube remains in place. NG tube removed. Central line is unchanged. MEDIASTINUM AND HILAR STRUCTURES: No masses. Contour normal. HEART AND VASCULAR STRUCTURES: Heart normal in size. Normal vasculature. BONES: No acute findings. HARDWARE: None in the chest. OTHER: No other significant finding. IMPRESSION: 1. Stable small right apical pneumothorax. Suspect small left apical pneumothorax as we ll. 2. Basilar atelectasis left greater than right. 3. Right-sided central line and large-bore left-sided chest tube remain in place. NG tube has been removed. TECHNICAL DOCUMENTATION: JOB ID: [id number] [employer]- All Rights Reserved Reading location - IP/workstation name: [email or web address]
[2018-11-16 09:16] LABS: ANION GAP 7 (5-19); BLOOD UREA NITROGEN 7 mg/dL (7-20); CALCIUM 8.7 mg/dL (8.4-10.2); CARBON DIOXIDE 29 mmol/L (22-30); CHLORIDE 100 mmol/L (98-107); GLUCOSE 121 mg/dL (75-110); POTASSIUM 4.1 mmol/L (3.6-5.0)
[2018-11-16] MEDS: DIGOXIN INJ 0.5 MG/2 ML AMPULE IV SCH (11:05)
[2018-11-16] MEDS: FUROSEMIDE INJ/PF 20 MG/2 ML SDV IV SCH ×2 (11:06→21:18)
--- NOTE | 2018-11-16 14:04 | PDOC CONSULTATION ---
Consultation Consult Date: 11/09/18 Attending physician:: SHINE DANIELS Provider Consulted: SHEILA PORRAS Consult reason:: Respiratory failure,/COPD, esophageal carcinoma History of Present Illness Admission Date/PCP: 11/08/18 07:08 History of Present Illness: CATHY CARDONA is a 58 year old male, history of COPD and cigarette use status post surgery for esophageal carcinoma. Intubated and sedated in ICU bilateral chest tubes air leak on the right Pleur-evac no evidence of air leak in the left pleural Past Medical History Cardiac Medical History: Denies: Coronary Artery Disease, Myocardial Infarction, Hypertension, Pu lmonary Embolism Pulmonary Medical History: Reports: Asthma - MILD, Chronic Obstructive Pulmonary Disease (COPD) Denies: Bronchitis, Pneumonia, Respiratory Failure, Sleep Apnea, Tuberculosis Neurological Medical History: Denies: Hemorrhagic CVA, Ischemic CVA, Seizures Endocrine Medical History: Denies: Diabetes Mellitus Type 1, Gestational Diabetes Renal/ Medical History: Reports: None Malignancy Medical History: Reports: Other - Esophageal carcinoma Denies: Lung Cancer GI Medical History: Reports: Gastroesophageal Reflux Disease Denies: Crohn's Disease, Hiatal Hernia, Ulcerative Colitis Musculoskeltal Medical History: Reports: Arthritis Denies: Fibromyalgia Skin Medical History: Denies: Eczema, Psoriasis Psychiatric Medical History: Reports: Tobacco Dependency Traumatic Medical History: Denies: Gunshot Wound, Pneumothorax, Traumatic Brain Injury Hematology: Denies: Anemia, Bleeding Tendencies Infectious Medical History: Denies: Hepatitis B, Hepatitis C Past Surgical History Past Surgical History: Reports: Tonsillectomy Denies: Appendectomy, Cholecystectomy, Colostomy, Coronary Artery Bypass Graft, Gastric Bypass Surgery, Herniorrhaphy, Pacemaker Social History Information Source: [facility] Records Smoking Status: Current Every Day Smoker Cigarettes Packs Per Day: 1 Number of Years Smokin Passive smoke exposure as: Both Hx Prescription Drug Abuse: No - Advance Directive Resuscitation Status: Full Code Family History Parental Family History Reviewed: No Children Family History Reviewed: No Sibling(s) Family History Reviewed.: No Medication/Allergy Home Medications: Cyanocobalamin (Vitamin B-12) [Vitamin B12] 1,000 mcg PO DAILY 08/13/18 Oxycodone HCl [Oxy-Ir 5 mg Tablet] 5 mg PO Q4HP PRN MDD 12 TABS 11/08/18 Allergies/Adverse Reactions: No Known Allergies Allergy (Verified 11/08/18 09:37) Review of Systems ROS unobtainable: Due to endotracheal tube Physical Exam Vital Signs: Temp Pulse Resp BP Pulse Ox 99.1 F 104 H 22 H 99/57 L 95 11/09/18 08:00 11/09/18 10:00 11/09/18 10:00 11/09/18 10:00 11/09/18 10:00 Intake & Output 11/08/18 11/09/18 11/10/18 06:59 06:59 06:59 Intake Total 1802 1098 Output Total 2000 250 Balance -198 848 Weight 86.18 kg 92.2 kg General appearance: PRESENT: no acute distress, disheveled, well-developed, well-nourished. ABSENT: cooperative Head exam: PRESENT: normocephalic Eye exam: PRESENT: conjunctiva pale. ABSENT: EOMI, nystagmus, periorbital swelling, scleral icterus Mouth exam: PRESENT: dry mucosa, neck supple, tongue midline, other - ET tube in place Neck exam: ABSENT: carotid bruit, full ROM, JVD, lymphadenopathy, meningismus, tenderness, thyromegaly, tracheal deviation, tracheostomy, other Respiratory exam: PRESENT: decreased breath sounds, prolonged expiratory phas, rales, rhonchi, symmetrical, unlabored, other - Bilateral chest tubes. ABSENT: retraction, stridor, tachypnea Cardiovascular exam: PRESENT: RRR, +S1, +S2, tachycardia Pulses: PRESENT: normal radial pulses GI/Abdominal exam: PRESENT: soft, other - Status post surgery. ABSENT: mass Extremities exam: ABSENT: calf tenderness, clubbing, joint swelling, pedal edema Musculoskeletal exam: ABSENT: ambulatory, deformity, dislocation Neurological exam: ABSENT: awake Skin exam: PRESENT: dry, warm Results Laboratory Results: 11/09/18 07:40 11/09/18 04:05 11/08/18 11/08/18 11/08/18 13:00 13:00 17:00 WBC 12.0 H 14.0 H RBC 4.05 L 4.13 L Hgb 12.3 L 12.5 L Hct 36.3 L 37.5 L MCV 90 91 MCH 30.5 30.3 MCHC 34.0 33.3 RDW 26.8 H 27.2 H Plt Count 271 295 Seg Neutrophils % Not Reportable Lymphocytes % Not Reportable Monocytes % Not Reportable Eosinophils % Not Reportable Basophils % Not Reportable Absolute Neutrophils Not Reportable Absolute Lymphocytes Not Reportable Absolute Monocytes Not Reportable Absolute Eosinophils Not Reportable Absolute Basophils Not Reportable Carbonic Acid HCO3/H2CO3 Ratio ABG pH ABG pCO2 ABG pO2 ABG HCO3 ABG O2 Saturation ABG Base Excess FiO2 Sodium Potassium Chloride Carbon Dioxide Anion Gap BUN Creatinine Est GFR ( Amer) Est GFR (Non-Af Amer) Glucose Calcium Total Bilirubin AST ALT Alkaline Phosphatase Total Protein Albumin Blood Type A POSITIVE Antibody Screen NEGATIVE 11/08/18 11/09/18 11/09/18 20:10 04:05 07:40 WBC 15.1 H RBC 3.73 L Hgb 11.5 L Hct 33.5 L MCV 90 MCH 30.8 MCHC 34.3 RDW 27.2 H Plt Count 246 Seg Neutrophils % 84.6 H Lymphocytes % 5.6 L Monocytes % 9.5 Eosinophils % 0.1 Basophils % 0.2 Absolute Neutrophils 12.8 H Absolute Lymphocytes 0.8 Absolute Monocytes 1.4 Absolute Eosinophils 0.0 Absolute Basophils 0.0 Carbonic Acid 1.10 HCO3/H2CO3 Ratio 17:1 ABG pH 7.34 L ABG pCO2 36.4 ABG pO2 102.6 H ABG HCO3 19.3 L ABG O2 Saturation 97.4 ABG Base Excess -5.8 FiO2 40% Sodium 135.5 L Potassium 4.4 Chloride 108 H Carbon Dioxide 24 Anion Gap 4 L BUN 6 L Creatinine 0.39 L Est GFR ( Amer) > 60 Est GFR (Non-Af Amer) > 60 Glucose 173 H Calcium 8.1 L Total Bilirubin 0.4 AST 65 H ALT 59 Alkaline Phosphatase 30 L Total Protein 4.7 L Albumin 2.6 L Blood Type Antibody Screen 11/09/18 10:01 WBC RBC Hgb Hct MCV MCH MCHC RDW Plt Count Seg Neutrophils % Lymphocytes % Monocytes % Eosinophils % Basophils % Absolute Neutrophils Absolute Lymphocytes Absolute Monocytes Absolute Eosinophils Absolute Basophils Carbonic Acid 1.02 L HCO3/H2CO3 Ratio 22:1 ABG pH 7.44 ABG pCO2 34.0 L ABG pO2 71.2 L ABG HCO3 22.6 ABG O2 Saturation 95.0 ABG Base Excess -1.0 FiO2 35% Sodium Potassium Chloride Carbon Dioxide Anion Gap BUN Creatinine Est GFR ( Amer) Est GFR (Non-Af Amer) Glucose Calcium Total Bilirubin AST ALT Alkaline Phosphatase Total Protein Albumin Blood Type Antibody Screen Impressions: Chest X-Ray 11/09/18 00:00 IMPRESSION: Stable postoperative chest compared to yesterday Assessment & Plan - Diagnosis (1) Acute respiratory failure Is this a current diagnosis for this admission?: Yes Plan: Status post surgery BIlateral lateral chest tubes (2) Esophageal cancer Is this a current diagnosis for this admission?: Yes Plan: As per surgery - Time Total Critical Time (Minutes): 55
[2018-11-17] MEDS: PIPERACILLIN SODIUM/TAZOBACTAM 3.375 GM in NORMAL SALINE 100 ML IV SCH ×2 (05:23→10:44)
[2018-11-17] MEDS: METOPROLOL TARTRATE PF/INJ 5 MG/5 ML SDV IV SCH ×2 (05:23→08:27)
[2018-11-17 07:01] LABS: ANION GAP 7 (5-19); BLOOD UREA NITROGEN 7 mg/dL (7-20); CALCIUM 8.6 mg/dL (8.4-10.2); CARBON DIOXIDE 29 mmol/L (22-30); CHLORIDE 101 mmol/L (98-107); GLUCOSE 108 mg/dL (75-110); POTASSIUM 4.1 mmol/L (3.6-5.0)
--- NOTE | 2018-11-17 09:43 | PDOC PROGRESS REPORT ---
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, UNSPECIFIED Physical Exam Vital Signs: Temp Pulse Resp BP Pulse Ox 97.8 F 99 13 102/64 95 11/17/18 07:23 11/17/18 07:23 11/17/18 07:23 11/17/18 07:23 11/17/18 07:23 Intake & Output 11/16/18 11/17/18 11/18/18 06:59 06:59 06:59 Intake Total 1400 1400 Output Total 1705 2225 30 Balance -305 -1245 -30 Weight 86.2 kg 83.3 kg General appearance: PRESENT: no acute distress Head exam: PRESENT: normocephalic Eye exam: PRESENT: EOMI Mouth exam: PRESENT: moist Neck exam: PRESENT: full ROM Respiratory exam: PRESENT: clear to auscultation jacy Cardiovascular exam: PRESENT: RRR Pulses: PRESENT: +2 pedal pulses bilateral GI/Abdominal exam: PRESENT: soft Rectal exam: PRESENT: deferred Extremities exam: PRESENT: full ROM Neurological exam: PRESENT: alert, awake, oriented to person, oriented to place Psychiatric exam: PRESENT: appropriate affect Skin exam: PRESENT: dry Results Laboratory Results: 11/15/18 04:25 11/17/18 05:20 11/17/18 05:20 Sodium 136.7 L Potassium 4.1 Chloride 101 Carbon Dioxide 29 Anion Gap 7 BUN 7 Creatinine 0.43 L Est GFR ( Amer) > 60 Est GFR (Non-Af Amer) > 60 Glucose 108 Calcium 8.6 Impressions: Upper GI Series 11/15/18 00:00 IMPRESSION: POSTOPERATIVE CHANGES SHOW NO EVIDENCE OF ANASTOMOTIC LEAK OR EXTRAVASATION. AREA OF NARROWING OF THE DISTAL PORTION OF THE GASTRIC PULL-THROUGH, BELOW THE LEVEL OF THE DIAPHRAGM, MAY REPRESENT AN OPEN PYLORUS. CONTRAST CAN NOT BE SEEN ENTERING INTO THE PROXIMAL SMALL BOWEL. POSTOPERATIVE EDEMA MAY BE CAUSING THIS DELAY IN GASTRIC EMPTYING. IMAGES WERE DISCUSSED AND REVIEWED WITH DR. DANIELS. FOLLOW-UP IMAGING WILL BE OBTAINED. Chest X-Ray 11/16/18 00:00 IMPRESSION: 1. Stable small right apical pneumothorax. Suspect small left apical pneumothorax as well. 2. Basilar atelectasis left greater than right. 3. Right-sided central line and large-bore left-sided chest tube remain in place. NG tube has been removed. KUB X-Ray 11/16/18 00:00 IMPRESSION: Nonobstructive gas pattern. There is contrast in the colon. Assessment & Plan - Diagnosis (1) Esophageal cancer Is this a current diagnosis for this admission?: Yes - Plan Summary Plan Summary: doing well contrast noted in colon on kub yesteray after the ugi rt chest tube in place on waterseal wbc wnl plan will start clear liquids today will prob pull rt ct tomorrow
[2018-11-17] MEDS ORDERED: DIGOXIN INJ 0.5 MG/2 ML AMPULE IV ONE (10:00)
[2018-11-17] MEDS: DIGOXIN INJ 0.5 MG/2 ML AMPULE IV SCH (10:40)
[2018-11-17] MEDS: FUROSEMIDE INJ/PF 20 MG/2 ML SDV IV SCH ×2 (10:44→21:41)
[2018-11-17] MEDS: POTASSI CL 20 MEQ/D5-1/2NS 1L 1,000 ML IV PRN (19:31)
[2018-11-17] MEDS ORDERED: DIPHENHYDRAMINE 2.5 MG/ML ORAL SOLN 60 ML PO PRN (22:05)
[2018-11-18] MEDS ORDERED: DIPHENHYDRAMINE HCL 25 MG/10 ML UDC PO PRN (01:13)
[2018-11-18] MEDS ORDERED: DIPHENHYDRAMINE HCL 25 MG/10 ML UDC ONE (01:13)
[2018-11-18] MEDS: DIGOXIN INJ 0.5 MG/2 ML AMPULE IV SCH (09:06)
[2018-11-18] MEDS: FUROSEMIDE INJ/PF 20 MG/2 ML SDV IV SCH ×2 (09:06→21:11)
--- NOTE | 2018-11-18 11:00 | PDOC PROGRESS REPORT ---
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, UNSPECIFIED Physical Exam Vital Signs: Temp Pulse Resp BP Pulse Ox 98.4 F 100 16 111/67 98 11/18/18 07:28 11/18/18 07:28 11/18/18 07:28 11/18/18 07:28 11/18/18 07:28 Intake & Output 11/17/18 11/18/18 11/19/18 06:59 06:59 06:59 Intake Total 1400 1340 Output Total 2645 205 700 Balance -1245 1135 -700 Weight 83.3 kg 83.3 kg General appearance: PRESENT: no acute distress Eye exam: PRESENT: EOMI Ear exam: PRESENT: normal external ear exam Mouth exam: PRESENT: moist Teeth exam: PRESENT: poor dentation Neck exam: PRESENT: full ROM Respiratory exam: PRESENT: clear to auscultation jacy Cardiovascular exam: PRESENT: RRR Pulses: PRESENT: +2 pedal pulses bilateral GI/Abdominal exam: PRESENT: soft Rectal exam: PRESENT: deferred Extremities exam: PRESENT: full ROM Musculoskeletal exam: PRESENT: full ROM Neurological exam: PRESENT: alert, awake, oriented to person, oriented to place Psychiatric exam: PRESENT: appropriate affect Skin exam: PRESENT: dry Results Laboratory Results: 11/15/18 04:25 11/17/18 05:20 Impressions: Upper GI Series 11/15/18 00:00 IMPRESSION: POSTOPERATIVE CHANGES SHOW NO EVIDENCE OF ANASTOMOTIC LEAK OR EXTRAVASATION. AREA OF NARROWING OF THE DISTAL PORTION OF THE GASTRIC PULL- THROUGH, BELOW THE LEVEL OF THE DIAPHRAGM, MAY REPRESENT AN OPEN PYLORUS. C ONTRAST CAN NOT BE SEEN ENTERING INTO THE PROXIMAL SMALL BOWEL. POSTOPERATIVE EDEMA MAY BE CAUSING THIS DELAY IN GASTRIC EMPTYING. IMAGES WERE DISCUSSED AND REVIEWED WITH DR. DANIELS. FOLLOW-UP IMAGING WILL BE OBTAINED. Chest X-Ray 11/16/18 00:00 IMPRESSION: 1. Stable small right apical pneumothorax. Suspect small left apical pneumothorax as well. 2. Basilar atelectasis left greater than right. 3. Right-sided central line and large-bore left-sided chest tube remain in place. NG tube has been removed. KUB X-Ray 11/16/18 00:00 IMPRESSION: Nonobstructive gas pattern. There is contrast in the colon. Assessment & Plan - Diagnosis (1) Esophageal cancer Is this a current diagnosis for this admission?: Yes - Plan Summary Plan Summary: doing well still with serous drainage from chest tube unclear amts roz clear liquids no neck leak will cont clears and tube feeds check cxr today I marked pleurovac and will recheck in am poss pull tube tomorrow discharge planning for home tube feeds cont clears.
--- NOTE | 2018-11-18 11:32 | RADIOLOGY REPORT (SQ) ---
EXAM DESCRIPTION: CHEST SINGLE VIEW COMPLETED DATE/TIME: 11/18/2018 11:15 am REASON FOR STUDY: post esophagectomy COMPARISON: 11/16/2018 EXAM PARAMETERS: NUMBER OF VIEWS: One view. TECHNIQUE: Single frontal radiographic view of the chest acquired. RADIATION DOSE: NA LIMITATIONS: None. FINDINGS: LUNGS AND PLEURA: Minimal atelectasis at the left base. Indwelling chest tube. No pneumo thorax. No focal finding in the left lung. MEDIASTINUM AND HILAR STRUCTURES: No masses. Contour normal. HEART AND VASCULAR STRUCTURES: Heart normal in size. Normal vasculature. BONES: No acute findings. HARDWARE: Stable venous access catheters. Right IJ and left subclavian. OTHER: No other significant finding. IMPRESSION: Minimal parenchymal opacity at the left base with indwelling left chest tube. Otherwise stable appearance of the chest. TECHNICAL DOCUMENTATION: JOB ID: [id number] [email or web address]- All Rights Reserved Reading location - IP/workstation name: [email or web address]
[2018-11-18] MEDS ORDERED: HYDROMORPHONE HCL INJ/PF 2 MG/ML AMPULE IV PRN (11:42)
[2018-11-18] MEDS: HYDROMORPHONE HCL INJ/PF 2 MG/ML AMPULE IV PRN ×3 (12:27→20:33)
[2018-11-18] MEDS: ZOLPIDEM TARTRATE 5 MG TABLET PO SCH (23:26)
[2018-11-19] MEDS: HYDROMORPHONE HCL INJ/PF 2 MG/ML AMPULE IV PRN ×5 (01:02→21:55)
--- NOTE | 2018-11-19 08:06 | PDOC PROGRESS REPORT ---
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, UNSPECIFIED Physical Exam Vital Signs: Temp Pulse Resp BP Pulse Ox 97.9 F 96 17 93/60 L 97 11/18/18 17:49 11/18/18 19:32 11/18/18 19:32 11/18/18 19:32 11/18/18 19:32 Intake & Output 11/18/18 11/19/18 11/20/18 06:59 06:59 06:59 Intake Total 1340 1000 Output Total 205 850 Balance 1135 150 Weight 83.3 kg 84 kg General appearance: PRESENT: no acute distress Head exam: PRESENT: normocephalic Eye exam: PRESENT: EOMI Ear exam: PRESENT: normal external ear exam Mouth exam: PRESENT: moist Teeth exam: PRESENT: poor dentation Neck exam: PRESENT: full ROM Respiratory exam: PRESENT: clear to auscultation jacy Cardiovascular exam: PRESENT: RRR Pulses: PRESENT: normal radial pulses, normal femoral pulses GI/Abdominal exam: PRESENT: soft Rectal exam: PRESENT: deferred Extremities exam: PRESENT: full ROM Musculoskeletal exam: PRESENT: full ROM Neurological exam: PRESENT: alert, awake, oriented to person, oriented to place Psychiatric exam: PRESENT: appropriate affect Skin exam: PRESENT: dry Results Laboratory Results: 11/15/18 04:25 11/17/18 05:20 Impressions: Upper GI Series 11/15/18 00:00 IMPRESSION: POSTOPERATIVE CHANGES SHOW NO EVIDENCE OF ANASTOMOTIC LEAK OR EXTRAVASATION. AREA OF NARROWING OF THE DISTAL PORTION OF THE GASTRIC PULL- THROUGH, BELOW THE LEVEL OF THE DIAPHRAGM, MAY REPRESENT AN OPEN PYLORUS. CONTR AST CAN NOT BE SEEN ENTERING INTO THE PROXIMAL SMALL BOWEL. POSTOPERATIVE EDEMA MAY BE CAUSING THIS DELAY IN GASTRIC EMPTYING. IMAGES WERE DISCUSSED AND REVIEWED WITH DR. DANIELS. FOLLOW-UP IMAGING WILL BE OBTAINED. KUB X-Ray 11/16/18 00:00 IMPRESSION: Nonobstructive gas pattern. There is contrast in the colon. Chest X-Ray 11/18/18 00:00 IMPRESSION: Minimal parenchymal opacity at the left base with indwelling left chest tube. Otherwise stable appearance of the chest. Assessment & Plan - Diagnosis (1) Esophageal cancer Is this a current diagnosis for this admission?: Yes - Plan Summary Plan Summary: will dc rt chest tube start full liquid diet prob home in am.
[2018-11-19] MEDS: DIGOXIN INJ 0.5 MG/2 ML AMPULE IV SCH (09:46)
--- NOTE | 2018-11-19 10:56 | PDOC PROGRESS REPORT ---
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 ABSENT: scleral icterus Ear exam: PRESENT: normal external ear exam Mouth exam: PRESENT: moist, tongue midline, other - ET TUBE IN PLACE Neck exam: ABSENT: carotid bruit, JVD, lymphadenopathy, thyromegaly Respiratory exam: PRESENT: decreased breath sounds, prolonged expiratory phas, rales, rhonchi. ABSENT: wheezes Cardiovascular exam: PRESENT: RRR. ABSENT: diastolic murmur, rubs, systolic murmur Pulses: PRESENT: normal dorsalis pedis pul Vascular exam: PRESENT: normal capillary refill GI/Abdominal exam: PRESENT: normal bowel sounds, soft. ABSENT: distended, guarding, mass, organolmegaly, rebound, tenderness Rectal exam: PRESENT: deferred Extremities exam: PRESENT: full ROM. ABSENT: calf tenderness, clubbing, pedal edema Neurological exam: ABSENT: alert, awake, motor sensory deficit Psychiatric exam: PRESENT: appropriate affect, normal mood. ABSENT: homicidal ideation, suicidal ideation Skin exam: PRESENT: dry, intact, warm. ABSENT: cyanosis, rash Results Laboratory Results: 11/15/18 04:25 11/17/18 05:20 Impressions: Upper GI Series 11/15/18 00:00 IMPRESSION: POSTOPERATIVE CHANGES SHOW NO EVIDENCE OF ANASTOMOTIC LEAK OR EXTRAVASATION. AREA OF NARROWING OF THE DISTAL PORTION OF THE GASTRIC PULL-THROUGH, BELOW THE LEVEL OF THE DIAPHRAGM, MAY REPRESENT AN OPEN PYLORUS. CONTRAST CAN NOT BE SEEN ENTERING INTO THE PROXIMAL SMALL BOWEL. POSTOPERATIVE EDEMA MAY BE CAUSING THIS DELAY IN GASTRIC EMPTYING. IMAGES WERE DISCUSSED AND REVIEWED WITH DR. DANIELS. FOLLOW-UP IMAGING WILL BE OBTAINED. KUB X-Ray 11/16/18 00:00 IMPRESSION: Nonobstructive gas pattern. There is contrast in the colon. Chest X-Ray 11/18/18 00:00 IMPRESSION: Minimal parenchymal opacity at the left base with indwelling left chest tube. Otherwise stable appearance of the chest. Assessment & Plan - Diagnosis (1) Acute respiratory failure Is this a current diagnosis for this admission?: Yes Plan: STATUS POST SURGERY, BILATERAL CHEST TUBES. PATIENT CURRENTLY INTUBATED AND SEDATED (2) Esophageal cancer Is this a current diagnosis for this admission?: Yes Plan: PER SURGERY - Time Total Critical Time (Minutes): 50 Inpatient Scribe Statement - . Entered by Caitlin Astudillo, acting as scribe for Dr. Campbell.
--- NOTE | 2018-11-19 10:58 | PDOC PROGRESS REPORT ---
Subjective Progress Note for:: 11/11/18 Subjective:: intubated and sedated Reason For Visit: C15.9 MALIGNANT NEOPLASM OF ESOPHAGUS, UNSPECIFIED Physical Exam Vital Signs: Temp Pulse Resp BP Pulse Ox 97.9 F 96 17 93/60 L 97 11/18/18 17:49 11/18/18 19:32 11/18/18 19:32 11/18/18 19:32 11/18/18 19:32 Intake & Output 11/18/18 11/19/18 11/20/18 06:59 06:59 06:59 Intake Total 1340 1000 Output Total 205 850 Balance 1135 150 Weight 83.3 kg 84 kg General appearance: PRESENT: no acute distress, well-developed, well-nourished Head exam: PRESENT: atraumatic, normocephalic Eye exam: PRESENT: conjunctiva pink, EOMI, PERRLA. ABSENT: scleral icterus Ear exam: PRESENT: normal external ear exam Mouth exam: PRESENT: moist, tongue midline, other - et tube in place Neck exam: ABSENT: carotid bruit, JVD, lymphadenopathy, thyromegaly Respiratory exam: PRESENT: crackles, unlabored. ABSENT: rales, rhonchi, wheezes Cardiovascular exam: PRESENT: RRR. ABSENT: diastolic murmur, rubs, systolic murmur Pulses: PRESENT: normal dorsalis pedis pul Vascular exam: PRESENT: normal capillary refill GI/Abdominal exam: PRESENT: normal bowel sounds, soft. ABSENT: distended, guarding, mass, organolmegaly, rebound, tenderness Rectal exam: PRESENT: deferred Extremities exam: PRESENT: full ROM. ABSENT: calf tenderness, clubbing, pedal edema Neurological exam: ABSENT: alert, awake, motor sensory deficit Psychiatric exam: PRESENT: appropriate affect, normal mood. ABSENT: homicidal ideation, suicidal ideation Skin exam: PRESENT: dry, intact, warm. ABSENT: cyanosis, rash Results Laboratory Results: 11/15/18 04:25 11/17/18 05:20 Impressions: Upper GI Series 11/15/18 00:00 IMPRESSION: POSTOPERATIVE CHANGES SHOW NO EVIDENCE OF ANASTOMOTIC LEAK OR EXTRAVASATION. AREA OF NARROWING OF THE DISTAL PORTION OF THE GASTRIC PULL- THROUGH, BELOW THE LEVEL OF THE DIAPHRAGM, MAY REPRESENT AN OPEN PYLORUS. CONTRAST CAN NOT BE SEEN ENTERING INTO THE PROXIMAL SMALL BOWEL. POSTOPERATIVE EDEMA MAY BE CAUSING THIS DELAY IN GASTRIC EMPTYING. IMAGES WERE DISCUSSED AND REVIEWED WITH DR. DANIELS. FOLLOW-UP IMAGING WILL BE OBTAINED. KUB X-Ray 11/16/18 00:00 IMPRESSION: Nonobstructive gas pattern. There is contrast in the colon. Chest X-Ray 11/18/18 00:00 IMPRESSION: Minimal parenchymal opacity at the left base with indwelling left chest tube. Otherwise stable appearance of the chest. Assessment & Plan - Diagnosis (1) Acute respiratory failure Is this a current diagnosis for this admission?: Yes Plan: STATUS POST SURGERY, BILATERAL CHEST TUBES. PATIENT CURRENTLY INTUBATED AND SEDATED (2) Esophageal cancer Is this a current diagnosis for this admission?: Yes Plan: PER SURGERY - Time Total Critical Time (Minutes): 60 Inpatient Scribe Statement - . Entered by Caitlin Astudillo, acting as scribe for Dr. Campbell.
--- NOTE | 2018-11-19 11:00 | PDOC PROGRESS REPORT ---
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 ABSENT: scleral icterus Ear exam: PRESENT: normal external ear exam Mouth exam: PRESENT: moist, tongue midline Neck exam: ABSENT: carotid bruit, JVD, lymphadenopathy, thyromegaly Respiratory exam: PRESENT: clear to auscultation jacy. ABSENT: rales, rhonchi, wheezes Cardiovascular exam: PRESENT: RRR. ABSENT: diastolic murmur, rubs, systolic murmur Pulses: PRESENT: normal dorsalis pedis pul Vascular exam: PRESENT: normal capillary refill GI/Abdominal exam: PRESENT: normal bowel sounds, soft. ABSENT: distended, guarding, mass, organolmegaly, rebound, tenderness Rectal exam: PRESENT: deferred Extremities exam: PRESENT: full ROM. ABSENT: calf tenderness, clubbing, pedal edema Neurological exam: PRESENT: alert, awake, oriented to person, oriented to place, oriented to time, oriented to situation, CN II-XII grossly intact. ABSENT: motor sensory deficit Psychiatric exam: PRESENT: appropriate affect, normal mood. ABSENT: homicidal ideation, suicidal ideation Skin exam: PRESENT: dry, intact, warm. ABSENT: cyanosis, rash Results Laboratory Results: 11/15/18 04:25 11/17/18 05:20 Impressions: Upper GI Series 11/15/18 00:00 IMPRESSION: POSTOPERATIVE CHANGES SHOW NO EVIDENCE OF ANASTOMOTIC LEAK OR EXTRAVASATION. AREA OF NARROWING OF THE DISTAL PORTION OF THE GASTRIC PULL- THROUGH, BELOW THE LEVEL OF THE DIAPHRAGM, MAY REPRESENT AN OPEN PYLORUS. CONTRAST CAN NOT BE SEEN ENTERING INTO THE PROXIMAL SMALL BOWEL. POSTOPERATIVE EDEMA MAY BE CAUSING THIS DELAY IN GASTRIC EMPTYING. IMAGES WERE DISCUSSED AND REVIEWED WITH DR. DANIELS. FOLLOW-UP IMAGING WILL BE OBTAINED. KUB X-Ray 11/16/18 00:00 IMPRESSION: Nonobstructive gas pattern. There is contrast in the colon. Chest X-Ray 11/18/18 00:00 IMPRESSION: Minimal parenchymal opacity at the left base with indwelling left chest tube. Otherwise stable appearance of the chest. Assessment & Plan - Diagnosis (1) Acute respiratory failure Is this a current diagnosis for this admission?: Yes Plan: patient extubated will monitor as patient still sedated and in recovery (2) Esophageal cancer Is this a current diagnosis for this admission?: Yes Plan: PER SURGERY - Time Total Critical Time (Minutes): 45 Inpatient Scribe Statement - . Entered by Caitlin Astudillo, acting as scribe for Dr. Campbell.
--- NOTE | 2018-11-19 11:02 | PDOC PROGRESS REPORT ---
Subjective Progress Note for:: 11/13/18 Subjective:: patient awake resting comfortably Reason For Visit: C15.9 MALIGNANT NEOPLASM OF ESOPHAGUS, UNSPECIFIED Physical Exam Vital Signs: Temp Pulse Resp BP Pulse Ox 97.9 F 96 17 93/60 L 97 11/18/18 17:49 11/18/18 19:32 11/18/18 19:32 11/18/18 19:32 11/18/18 19:32 Intake & Output 11/18/18 11/19/18 11/20/18 06:59 06:59 06:59 Intake Total 1340 1000 Output Total 205 850 Balance 1135 150 Weight 83.3 kg 84 kg General appearance: PRESENT: no acute distress, well-developed, well-nourished Head exam: PRESENT: atraumatic, normocephalic Eye exam: PRESENT: conjunctiva pink, EOMI, PERRLA. ABSENT: scleral icterus Ear exam: PRESENT: normal external ear exam Mouth exam: PRESENT: moist, tongue midline Neck exam: ABSENT: carotid bruit, JVD, lymphadenopathy, thyromegaly Respiratory exam: PRESENT: clear to auscultation jacy. ABSENT: rales, rhonchi, wheezes Cardiovascular exam: PRESENT: RRR. ABSENT: diastolic murmur, rubs, systolic murmur Pulses: PRESENT: normal dorsalis pedis pul Vascular exam: PRESENT: normal capillary refill GI/Abdominal exam: PRESENT: normal bowel sounds, soft. ABSENT: distended, guarding, mass, organolmegaly, rebound, tenderness Rectal exam: PRESENT: deferred Extremities exam: PRESENT: full ROM. ABSENT: calf tenderness, clubbing, pedal edema Neurological exam: PRESENT: alert, awake, oriented to person, oriented to place, oriented to time, oriented to situation, CN II-XII grossly intact. ABSENT: motor sensory deficit Psychiatric exam: PRESENT: appropriate affect, normal mood. ABSENT: homicidal ideation, suicidal ideation Skin exam: PRESENT: dry, intact, warm. ABSENT: cyanosis, rash Results Laboratory Results: 11/15/18 04:25 11/17/18 05:20 Impressions: Upper GI Series 11/15/18 00:00 IMPRESSION: POSTOPERATIVE CHANGES SHOW NO EVIDENCE OF ANASTOMOTIC LEAK OR EXTRAVASATION. AREA OF NARROWING OF THE DISTAL PORTION OF THE GASTRIC PULL-THR OUGH, BELOW THE LEVEL OF THE DIAPHRAGM, MAY REPRESENT AN OPEN PYLORUS. CONTRAST CAN NOT BE SEEN ENTERING INTO THE PROXIMAL SMALL BOWEL. POSTOPERATIVE EDEMA MAY BE CAUSING THIS DELAY IN GASTRIC EMPTYING. IMAGES WERE DISCUSSED AND REVIEWED WITH DR. DANIELS. FOLLOW-UP IMAGING WILL BE OBTAINED. KUB X-Ray 11/16/18 00:00 IMPRESSION: Nonobstructive gas pattern. There is contrast in the colon. Chest X-Ray 11/18/18 00:00 IMPRESSION: Minimal parenchymal opacity at the left base with indwelling left chest tube. Otherwise stable appearance of the chest. Assessment & Plan - Diagnosis (1) Acute respiratory failure Is this a current diagnosis for this admission?: Yes Plan: patient extubated will monitor as patient still sedated and in recovery (2) Esophageal cancer Is this a current diagnosis for this admission?: Yes Plan: PER SURGERY - Time Total Critical Time (Minutes): 40 Inpatient Scribe Statement - . Entered by Caitlin Astudillo, acting as scribe for Dr. Campbell.
[2018-11-19] MEDS: ZOLPIDEM TARTRATE 5 MG TABLET PO SCH (21:56)
[2018-11-20] MEDS: HYDROMORPHONE HCL INJ/PF 2 MG/ML AMPULE IV PRN ×2 (03:27→09:09)
--- NOTE | 2018-11-20 08:56 | PDOC DISCHARGE SUMMARY ---
General - Admit/Disc Date/PCP Admission Date/Primary Care Provider: 11/08/18 07:08 Discharge Date: 11/20/18 - Discharge Diagnosis (1) Esophageal cancer Is this a current diagnosis for this admission?: Yes - Additional Information Resuscitation Status: Full Code Discharge Diet: As Tolerated, Full Liquids, Tube Feeding (Comments) Discharge Activity: Activity As Tolerated, No Lifting Over 10 Pounds Home Medications: Cyanocobalamin (Vitamin B-12) [Vitamin B12] 1,000 mcg PO DAILY 08/13/18 Oxycodone HCl [Oxy-Ir 5 mg Tablet] 5 mg PO Q4HP PRN MDD 12 TABS 11/08/18 History of Present Illness History of Present Illness: CATHY CARDONA is a 58 year old male with known esophageal cancer s/p neoadjuvaant therapy admitted for elective esophagectomy roz procedure well monitored in icu post op then tx to regular floor after extubation cont to do well in hospital had return of bowel function and the chest tube serially removed today he has return of bowel function taking po liquids tolerating tube feeds he will be discharged home today on tube feeds. Physical Exam Vital Signs: Temp Pulse Resp BP Pulse Ox 98.1 F 91 16 102/67 95 11/19/18 20:00 11/19/18 20:00 11/19/18 20:00 11/19/18 20:00 11/19/18 20:00 Intake & Output 11/19/18 11/20/18 11/21/18 06:59 06:59 06:59 Intake Total 1000 1480 Output Total 850 30 Balance 150 1450 Weight 84 kg 84 kg General appearance: PRESENT: no acute distress Head exam: PRESENT: atraumatic Eye exam: PRESENT: EOMI Ear exam: PRESENT: normal external ear exam Mouth exam: PRESENT: moist Neck exam: PRESENT: full ROM Respiratory exam: PRESENT: clear to auscultation jacy Cardiovascular exam: PRESENT: RRR Pulses: PRESENT: normal radial pulses, normal femoral pulses Vascular exam: PRESENT: normal capillary refill GI/Abdominal exam: PRESENT: soft Rectal exam: PRESENT: deferred Extremities exam: PRESENT: full ROM Musculoskeletal exam: PRESENT: full ROM Neurological exam: PRESENT: alert, awake, oriented to person, oriented to place Psychiatric exam: PRESENT: appropriate affect Skin exam: PRESENT: dry Results Laboratory Results: 11/15/18 04:11/17/18 05:20 Impressions: Upper GI Series 11/15/18 00:00 IMPRESSION: POSTOPERATIVE CHANGES SHOW NO EVIDENCE OF ANASTOMOTIC LEAK OR EXTRAVASATION. AREA OF NARROWING OF THE DISTAL PORTION OF THE GASTRIC PULL- THROUGH, BELOW THE LEVEL OF THE DIAPHRAGM, MAY REPRESENT AN OPEN PYLORUS. CONTRAST CAN NOT BE SEEN ENTERING INTO THE PROXIMAL SMALL BOWEL. POSTOPERATIVE EDEMA MAY BE CAUSING THIS DELAY IN GASTRIC EMPTYING. IMAGES WERE DISCUSSED AND REVIEWED WITH DR. DANIELS. FOLLOW-UP IMAGING WILL BE OBTAINED. KUB X-Ray 11/16/18 00:00 IMPRESSION: Nonobstructive gas pattern. There is contrast in the colon. Chest X-Ray 11/18/18 00:00 IMPRESSION: Minimal parenchymal opacity at the left base with indwelling left chest tube. Otherwise stable appearance of the chest. Qualifiers - * PATIENT BEING DISCHARGED WITH ANY OF THE FOLLOWING DIAGNOSIS: No VTE patient discharged on overlapping Therapy?: No Reason(s) for not prescribing Overlap Therapy:: Not indicated Stroke Pt being discharged on Anti-thrombolytic therapy?: No Reason(s) for not prescribing Anti-thrombolytic therapy:: Not indicated Stroke Pt being discharged on Anti-coagulation therapy?: No Reason(s) for not prescribing Anti-coagulation therapy:: Not indicated Reason(s) for not prescribing Statins therapy:: Not indicated Reason(s) for not prescribing Aspirin therapy:: Not indicated Reason(s) for not prescribing Statin therapy:: Not indicated Reason(s) for not prescribing ACEI/ARBS:: Not indicated Acute Heart Failure - Is this a Heart Failure Patient?: No Plan Discharge Plan: discharge home today will f/u with me in 1 wk home health for tube\ feeding. Time Spent: Less than 30 Minutes - will f/u with me in 1 wk
[2018-11-20] MEDS: DIGOXIN INJ 0.5 MG/2 ML AMPULE IV SCH (09:07)
[2018-11-20 12:04] VITALS: BP 97/64
--- NOTE | 2018-11-21 16:33 | PDOC PROGRESS REPORT ---
Subjective Progress Note for:: 11/15/18 Subjective:: Continues to improve Reason For Visit: C15.9 MALIGNANT NEOPLASM OF ESOPHAGUS, UNSPECIFIED Physical Exam Vital Signs: Temp Pulse Resp BP Pulse Ox 98.7 F 110 H 16 100/65 90 L 11/15/18 23:46 11/15/18 23:46 11/15/18 23:46 11/15/18 23:46 11/15/18 23:46 Intake & Output 11/15/18 11/16/18 11/17/18 06:59 06:59 06:59 Intake Total 685 1400 Output Total 3080 1705 20 Balance -2395 -305 -20 Weight 86.1 kg 86.2 kg General appearance: PRESENT: no acute distress, cooperative, disheveled, well- developed, well-nourished Head exam: PRESENT: atraumatic, normocephalic Eye exam: PRESENT: conjunctiva pale, EOMI. ABSENT: nystagmus, periorbital swelling Mouth exam: PRESENT: dry mucosa, neck supple, tongue midline Neck exam: ABSENT: carotid bruit, full ROM, JVD, lymphadenopathy, meningismus, tenderness, thyromegaly, tracheal deviation, tracheostomy, other Respiratory exam: PRESENT: decreased breath sounds, prolonged expiratory phas, rhonchi, symmetrical, unlabored. ABSENT: rales, retraction, stridor Cardiovascular exam: PRESENT: RRR, +S1, +S2 Pulses: PRESENT: normal radial pulses GI/Abdominal exam: PRESENT: hypoactive bowel sounds, soft. ABSENT: mass, tenderness Extremities exam: PRESENT: pedal edema. ABSENT: calf tenderness, clubbing, joint swelling Musculoskeletal exam: ABSENT: deformity, dislocation Neurological exam: PRESENT: alert, awake Psychiatric exam: PRESENT: appropriate affect Skin exam: PRESENT: dry, warm Results Laboratory Results: 11/15/18 04:25 11/16/18 05:20 11/16/18 05:20 Sodium 135.6 L Potassium 4.1 Chloride 100 Carbon Dioxide 29 Anion Gap 7 BUN 7 Creatinine 0.41 L Est GFR ( Amer) > 60 Est GFR (Non-Af Amer) > 60 Glucose 121 H Calcium 8.7 Impressions: Upper GI Series 11/15/18 00:00 IMPRESSION: POSTOPERATIVE CHANGES SHOW NO EVIDENCE OF ANASTOMOTIC LEAK OR EXTRAVASATION. AREA OF NARROWING OF THE DISTAL PORTION OF THE GASTRIC PULL- THROUGH, BELOW THE LEVEL OF THE DIAPHRAGM, MAY REPRESENT AN OPEN PYLORUS. CONTRAST CAN NOT BE SEEN ENTERING INTO THE PROXIMAL SMALL BOWEL. POSTOPERATIVE EDEMA MAY BE CAUSING THIS DELAY IN GASTRIC EMPTYING. IMAGES WERE DISCUSSED AND REVIEWED WITH DR. DANIELS. FOLLOW-UP IMAGING WILL BE OBTAINED. Chest X-Ray 11/16/18 00:00 IMPRESSION: 1. Stable small right apical pneumothorax. Suspect small left apical pneumothorax as well. 2. Basilar atelectasis left greater than right. 3. Right-sided central line and large-bore left-sided chest tube remain in place. NG tube has been removed. KUB X-Ray 11/16/18 00:00 IMPRESSION: Nonobstructive gas pattern. There is contrast in the colon. Assessment & Plan - Diagnosis (1) Acute respiratory failure Is this a current diagnosis for this admission?: Yes Plan: Status post surgery doing well at this time (2) Esophageal cancer Is this a current diagnosis for this admission?: Yes Plan: As per surgery - Time Total Critical Time (Minutes): 40
== END 2018-11-20 12:54 | disposition home health service (06) | DRG 374 ==
LOC: ICU 07:08 → 4S 11-15 07:31
PROVIDERS: ADMIT Surgery; ATTEND Surgery
PROC: 0DB34ZZ Excision of Lower Esophagus, Percutaneous Endoscopic Approach (ICD-10-PCS; 2018-11-08)
PROC: 02HV33Z Insertion of Infusion Device into Superior Vena Cava, Percutaneous Approach (ICD-10-PCS; 2018-11-08)
PROC: 0DHA3UZ Insertion of Feeding Device into Jejunum, Percutaneous Approach (ICD-10-PCS; 2018-11-08)
PROC: 0W9B30Z Drainage of Left Pleural Cavity with Drainage Device, Percutaneous Approach (ICD-10-PCS; 2018-11-08)
PROC: 0BH17EZ Insertion of Endotracheal Airway into Trachea, Via Natural or Artificial Opening (ICD-10-PCS; 2018-11-08)
PROC: 5A1945Z Respiratory Ventilation, 24-96 Consecutive Hours (ICD-10-PCS; principal; 2018-11-08 10:00)
PROC: 5A09457 Assistance with Respiratory Ventilation, 24-96 Consecutive Hours, Continuous Positive Airway Pressure (ICD-10-PCS; 2018-11-11)
DX: C15.9 Malignant neoplasm of esophagus, unspecified (principal); J96.00 Acute respiratory failure, unspecified whether with hypoxia or hypercapnia; K21.9 Gastro-esophageal reflux disease without esophagitis; F17.210 Nicotine dependence, cigarettes, uncomplicated; Z79.891 Long term (current) use of opiate analgesic; Z78.1 Physical restraint status
CPT/HCPCS: 36415; 71045; 74018; 74247; 80048; 80053; 80162; 82803; 82962; 83735; 84100; 84134; 85025; 85027; 86850; 86900; 86901; 86920; 88309; 93005; 93010; 94002; 94003; 94660; 94799; J0330; J0690; J1100; J1160; J1170; J1940; J2250; J2270; J2370; J2405; J2543; J2704; J2710; J3010; J3480; J3490; J7030; J7050; J7060; P9041; S0164

== ENCOUNTER 2019-01-22 07:30 | Day surgery (SDC) | payer MEDICAID ==
[2019-01-22] MEDS ORDERED: DIPHENHYDRAMINE HCL 50 MG/ML VIAL ONE (07:49)
[2019-01-22] MEDS ORDERED: ONDANSETRON HCL INJ/PF 4 MG/2 ML SDV ONE (07:49)
[2019-01-22] MEDS ORDERED: FLUMAZENIL INJ 0.5 MG/5 ML VIAL ONE (07:50)
[2019-01-22] MEDS ORDERED: GLUCAGON,HUMAN RECOMB 1 MG INJ ONE (07:50)
[2019-01-22] MEDS ORDERED: NALOXONE HCL INJ/PF 0.4 MG/1 ML SDV ONE (07:50)
[2019-01-22] MEDS ORDERED: EPINEPHRINE INJ 1 MG/10 ML DISP.SYRIN ONE (07:50)
[2019-01-22] MEDS: MIDAZOLAM 2 MG/2 ML INJ ONE ×5 (08:11→08:47)
[2019-01-22] MEDS: FENTANYL CITRATE INJ/PF 100 MCG/2 ML AMPUL ONE ×4 (08:13→09:02)
--- NOTE | 2019-01-22 09:24 | Operative Report ---
Nonrecallable Operative Report DATE OF SURGERY: 01/22/19 PREOPERATIVE DIAGNOSIS: hx of esophagectomy, anastomotic stricture POSTOPERATIVE DIAGNOSIS: hx of esophagectomy, anastomotic stricture OPERATION: esophagogastricduodenoscopy with dilation of esophagogastric anastomo sis SURGEON: SHINE DANIELS ANESTHESIA: Moderate Sedation TISSUE REMOVED OR ALTERED: bx of stomach COMPLICATIONS: none ESTIMATED BLOOD LOSS: 0 PROCEDURE: She was brought to the endoscopy suite awake and alert stable condition placed on the endoscopy table in a left lateral decubitus position he was given IV sedation with fentanyl and Versed. After appropriate timeout and site verification the Olympus gastroscope was passed into the posterior pharynx. With some manipulation we were able to identify the epiglottis the trachea and then the esophagogastric anastomosis which appeared to be slightly narrowed however I will with some gentle pressure I was able to manipulate the gastroscope through the anastomosis into the stomach. It was traversed through the stomach to the pylorus. Then the pylorus was visualized and had a evidence of a previous pyloroplasty I was able to manipulated through the pyloroplasty into the duodenum there was some mild duodenitis. As we slowly withdrew the scope there was some excrescences on the wall of the stomach just proximal to the pylorus and this was biopsied. Scope was slowly withdrawn back into the stomach and then through the esophago- gastric anastomosis which seemed to close down easily on itself. We then used a 10 mm pressure balloon passed into the scope through the anastomosis and it was inflated to 10 mm of pressure. Held for 1 minute and then reduced this was repeated x1. The balloon was removed and the scope was then again manipulated to the posterior pharynx and then easily passed through the anastomosis with no pressure. We again examined the proximal stomach and then slowly withdrew the scope and removed it. This completed the procedure. Findings; 1. Status post transhiatal esophagectomy. 2. Mild duodenitis 3. Gastric excrescences status post biopsy. 4. 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 Patient will follow-up with me in 2 to 3 weeks.
--- NOTE | 2019-01-22 09:26 | Discharge Summary ---
Discharge Summary (SDC) - Discharge Final Diagnosis: Status post transhiatal esophagectomy first esophageal cancer Date of Surgery: 01/22/19 Condition: Good Discharge Diet: Full Liquids Discharge Activity: Activity As Tolerated Report the Following to Your Physician Immediately: Shortness of Breath, Nausea, Increase in Pain - She to follow-up with me 2 to 3 weeks
[2019-01-22 10:24] VITALS: BP 99/75
== END 2019-01-22 10:15 | disposition home or self-care (01) ==
LOC: END 07:30
PROVIDERS: ATTEND Surgery
DX: K29.50 Unspecified chronic gastritis without bleeding (principal); K22.2 Esophageal obstruction; C15.9 Malignant neoplasm of esophagus, unspecified; F17.210 Nicotine dependence, cigarettes, uncomplicated; Z01.818 Encounter for other preprocedural examination
CPT/HCPCS: 43239; 43249; 88342 ×2; 88305 ×2; J2250; J3010; J0171; J1200; J1610; J2310; J2405; J3490

== ENCOUNTER 2019-05-23 11:25 | Observation (INO) | payer MEDICAID ==
[2019-05-16 10:31] LABS: ABSOLUTE EOSINOPHILS # (AUTO) 0.4 10^3/uL (0.0-0.6); ABSOLUTE LYMPHOCYTES (AUTO) 0.7 10^3/uL (0.5-4.7); ABSOLUTE MONOCYTES (AUTO) 0.7 10^3/uL (0.1-1.4); ABSOLUTE NEUT (AUTO) 5.8 10^3/uL (1.7-8.2); BASOPHILS % (AUTO) 0.5 % (0-2); EOSINOPHILS % (AUTO) 5.4 % (0-6); HEMATOCRIT 42.5 % (37.9-51.0); HEMOGLOBIN 14.5 g/dL (13.5-17.0); LYMPHOCYTES % (AUTO) 9.1 % (13-45); MEAN CORPUSCULAR VOLUME 94 fl (80-97); PLATELET COUNT 279 10^3/uL (150-450); RED BLOOD COUNT 4.51 10^6/uL (4.35-5.55); RED CELL DISTRIBUTION WIDTH 15.5 % (11.5-14.0); TOTAL CELLS COUNTED % (AUTO) 100 %; WHITE BLOOD COUNT 7.7 10^3/uL (4.0-10.5)
[2019-05-16 10:47] LABS: ANION GAP 8 (5-19); BLOOD UREA NITROGEN 9 mg/dL (7-20); CALCIUM 9.7 mg/dL (8.4-10.2); CARBON DIOXIDE 31 mmol/L (22-30); CHLORIDE 101 mmol/L (98-107); GLUCOSE 103 mg/dL (75-110); POTASSIUM 4.5 mmol/L (3.6-5.0)
--- NOTE | 2019-05-16 12:45 | EKG REPORT ---
SEVERITY:- ABNORMAL ECG - SINUS RHYTHM LEFT AXIS DEVIATION LA ENLARGEMENT. : Confirmed by: Manolo Soler MD 16-May-2019 12:45:02
--- NOTE | 2019-05-16 16:53 | RADIOLOGY REPORT (SQ) ---
EXAM DESCRIPTION: CHEST PA/LATERAL COMPLETED DATE/TIME: 05/16/2019 8:52 am REASON FOR STUDY: PRE-OP COMPARISON: None. EXAM PARAMETERS: NUMBER OF VIEWS: two views TECHNIQUE: Digital Frontal and Lateral radiographic views of the chest acquired. RADIATION DOSE: NA LIMITATIONS: none FINDINGS: LUNGS AND PLEURA: No opacities, masses or pneumothorax. No pleural effusion. MEDIASTINUM AND HILAR STRUCTURES: No masses or contour abnormalities. HEART AND VASCULAR STRUCTURES: Heart normal size. No evidence for failure. BONES: No acute findings. HARDWARE: Left MediPort catheter with tip in the lower SVC unchanged from prior. Interval removal of the right IJ central venous catheter in the left chest tube. OTHER: No other significant finding. IMPRESSION: No acute cardiopulmonary disease. TECHNICAL DOCUMENTATION: JOB ID: [id number] [employer]- All Rights Reserved Reading location - IP/workstation name: [email or web address]
[~2019-05-23 11:25] MED LIST changes: +CEFAZOLIN 1 GM/D5W RTU 1 GM/50 ML RTUPB IV ONE; +CEFAZOLIN 1 GM/D5W RTU 1 GM/50 ML RTUPB IV PRN; -CEFAZOLIN SODIUM 2 GM in DEXTROSE 5%-WATER 100 ML IV PRN; +DEXAMETHASONE SOD PHOSPHATE INJ 4 MG/1 ML VIAL ONE; +GLYCOPYRROLATE 1 MG/5 ML VIAL ONE; -METRONIDAZOLE 500 MG/NS RTU 500 MG/100 ML RTUPB IV PRN; +NEOSTIGMINE METHYLSULFATE 10 MG/10 ML VIAL ONE; +ONDANSETRON HCL INJ/PF 4 MG/2 ML SDV ONE; +ROCURONIUM BROMIDE INJ 50 MG/5 ML VIAL IV ONE; +SUCCINYLCHOLINE CHLORIDE INJ 200 MG/10 ML VIAL ONE
[2019-05-23] MEDS ORDERED: BUPIVACAINE INJ/PF LIPOSOME/PF 266 MG/20 ML SDV ONE (14:05)
[2019-05-23] MEDS ORDERED: BUPIVACAINE INJ/PF LIPOSOME/PF 266 MG/20 ML SDV INJ ONE (14:09)
[2019-05-23] MEDS ORDERED: FENTANYL CITRATE INJ/PF 100 MCG/2 ML AMPUL ONE ×3 (14:12→16:13)
[2019-05-23] MEDS ORDERED: LIDOCAINE 2% INJ-PF (20 MG/ML) 10 ML AMPUL ONE (14:12)
[2019-05-23] MEDS ORDERED: ONDANSETRON HCL INJ/PF 4 MG/2 ML SDV ONE (14:13)
[2019-05-23] MEDS ORDERED: PROPOFOL INJ 200 MG/20 ML VIAL IV ONE (14:13)
[2019-05-23] MEDS ORDERED: DEXAMETHASONE SOD PHOSPHATE INJ 4 MG/1 ML VIAL ONE (14:13)
[2019-05-23] MEDS ORDERED: MIDAZOLAM 2 MG/2 ML INJ ONE (14:13)
[2019-05-23] MEDS ORDERED: ONDANSETRON HCL INJ/PF 4 MG/2 ML SDV IV PRN ×2 (14:48→16:09)
[2019-05-23] MEDS ORDERED: PROMETHAZINE HCL INJ 25 MG/1 ML VIAL IV PRN (14:48)
[2019-05-23] MEDS ORDERED: MORPHINE SULFATE 10 MG/ML INJ IV PRN (14:48)
[2019-05-23] MEDS ORDERED: FENTANYL CITRATE INJ/PF 100 MCG/2 ML AMPUL IV PRN ×3 (14:48)
[2019-05-23] MEDS ORDERED: OXYCODONE-ACETAMINOPHEN 5-325 MG TABLET PO PRN ×2 (14:48)
[2019-05-23] MEDS ORDERED: MEPERIDINE HCL/PF INJ 25 MG/1 ML DISP.SYRIN IV PRN (14:48)
[2019-05-23] MEDS ORDERED: DIPHENHYDRAMINE HCL 50 MG/ML VIAL IV PRN (14:48)
[2019-05-23] MEDS ORDERED: POTASSI CL 20 MEQ/D5-1/2NS 1L 1,000 ML IV PRN (16:09)
[2019-05-23] MEDS ORDERED: KETOROLAC TROMETHAMINE INJ/PF 30 MG/1 ML SDV ONE (16:35)
[2019-05-23] MEDS ORDERED: ACETAMINOPHEN 1,000 MG/100 ML RTUPB IV ONE (16:36)
[2019-05-23] MEDS: MORPHINE SULFATE 10 MG/ML INJ ONE ×2 (16:37→16:42)
--- NOTE | 2019-05-23 16:46 | Operative Report ---
Nonrecallable Operative Report DATE OF SURGERY: 05/23/19 PREOPERATIVE DIAGNOSIS: Ventral hernia, history of esophageal cancer status post chemotherapy POSTOPERATIVE DIAGNOSIS: Ventral hernia, history of esophageal cancer status post chemotherapy OPERATION: Ventral hernia repair and Port-A-Cath removal left chest SURGEON: SHINE DANIELS ANESTHESIA: GA TISSUE REMOVED OR ALTERED: Port-A-Cath left chest COMPLICATIONS: None ESTIMATED BLOOD LOSS: 50 cc INTRAOPERATIVE FINDINGS: See dictation PROCEDURE: Patient was brought to the operating room awake alert in stable condition placed in the operative table supine position induced under general anesthesia intubated. The abdomen was prepped and draped in usual sterile fashion as was the left chest with the patient had a Port-A-Cath placed. After appropriate timeout and site verification the procedure commenced. Midline incision was made over the old midline scar in the mid abdomen approximately 15 cm long over the hernia defect. Dissection was carried out through subcutaneous tissue with Bovie cautery. The hernia defect which was angel roximately 4 cm in diameter had a number of [place]ian cheese like fascial defects cephalad and inferior to it. We excised the main hernia sac from the surrounding fascia with Bovie cautery. We then fashioned a skin flaps on each side of the incision by dissecting the subcutaneous tissue off normal fascia on both sides of the hernia defect. Once this was done we cleared the undersurface of the fascia in the abdominal cavity of the few omental adhesions. We then used a piece of ventral Umberto mesh and tacked it to the undersurface of the abdominal fascia with interrupted placed #2 Polysorb sutures. We then closed the fascia over the mesh with interrupted #2 Polysorb sutures. Placed a Dax-Faustin drain on top of the fascia brought out through a stab wound in the left lower quadrant and closed the skin with standard skin clips. Attention was then turned to the left chest where the Port-A-Cath was. A transverse incision was made directly over the old incision and dissection was carried out through subcutaneous tissue with Bovie cautery through the capsule of the Port-A-Cath. The Port-A-Cath was identified it easily slid from its capsule and it and the connecting catheter were removed in 1 piece. Subcutaneous tissue was then reapproximated with interrupted 3-0 Vicryl sutures and skin was reapproximated intracuticular 4-0 Biosyn Steri-Strips completed the procedure Estimated blood loss for entire procedure was less than 50 cc sponge needle counts were correct x2 patient was awakened in the operating room extubated transferred recovery in stable condition no complications
[2019-05-23] MEDS: MORPHINE SULFATE 10 MG/ML INJ IV PRN ×3 (16:48→23:07)
[2019-05-23] MEDS: HYDROMORPHONE HCL INJ/PF 2 MG/ML AMPULE ONE ×2 (17:35→17:40)
[2019-05-23] MEDS ORDERED: FAMOTIDINE INJ/PF 20 MG/2 ML SDV IV SCH (22:00)
[2019-05-24] MEDS: MORPHINE SULFATE 10 MG/ML INJ IV PRN ×2 (02:39→05:50)
[2019-05-24 05:42] LABS: ABSOLUTE LYMPHOCYTES (AUTO) 0.6 10^3/uL (0.5-4.7); ABSOLUTE MONOCYTES (AUTO) 0.9 10^3/uL (0.1-1.4); ABSOLUTE NEUT (AUTO) 9.7 10^3/uL (1.7-8.2); BASOPHILS % (AUTO) 0.1 % (0-2); EOSINOPHILS % (AUTO) 0.1 % (0-6); HEMATOCRIT 35.5 % (37.9-51.0); HEMOGLOBIN 12.1 g/dL (13.5-17.0); LYMPHOCYTES % (AUTO) 5.4 % (13-45); MEAN CORPUSCULAR HEMOGLOBIN 32.5 pg (27.0-33.4); MEAN CORPUSCULAR HGB CONC 34.2 g/dL (32.0-36.0); MEAN CORPUSCULAR VOLUME 95 fl (80-97); MONOCYTES % (AUTO) 8.2 % (3-13); PLATELET COUNT 229 10^3/uL (150-450); RED BLOOD COUNT 3.73 10^6/uL (4.35-5.55); RED CELL DISTRIBUTION WIDTH 15.1 % (11.5-14.0); SEGMENTED NEUTROPHILS % (AUTO) 86.2 % (42-78); TOTAL CELLS COUNTED % (AUTO) 100 %; WHITE BLOOD COUNT 11.3 10^3/uL (4.0-10.5)
[2019-05-24 06:41] LABS: ANION GAP 12 (5-19); BLOOD UREA NITROGEN 14 mg/dL (7-20); CALCIUM 9.2 mg/dL (8.4-10.2); CARBON DIOXIDE 24 mmol/L (22-30); CHLORIDE 102 mmol/L (98-107); GLUCOSE 139 mg/dL (75-110); POTASSIUM 4.8 mmol/L (3.6-5.0)
--- NOTE | 2019-05-24 08:19 | PDOC DISCHARGE SUMMARY ---
General - Admit/Disc Date/PCP Admission Date/Primary Care Provider: 05/23/2019 Discharge Date: 05/24/19 - Discharge Diagnosis Final Diagnosis: ventral hernia - Assessment Summary: Patient was admitted on 05/23/2019 for elective ventral hernia repair. He underwent the procedure on the day of admission tolerated well. On postop day 1 he was doing well had minimal amount of abdominal pain Dax- Faustin drain was in place he was tolerating a regular diet and ready for discharge home. He will be followed up in 3 to 4 days after discharge. He is instructed to remain on a soft diet encouraged p.o. fluids he has a Dax-Faustin drain in place and instructed on how to empty that. He will be given Percocet for pain management at home. Final diagnosis ventral hernia. - Additional Information Resuscitation Status: Full Code Discharge Diet: Regular Discharge Activity: Activity As Tolerated, No Lifting Over 10 Pounds Prescriptions: Oxycodone HCl/Acetaminophen [Percocet 10-325 Mg Tablet] 1 each PO Q6 PRN #20 tablet PRN Reason: Home Medications: Oxycodone HCl/Acetaminophen [Percocet 10-325 Mg Tablet] 1 each PO Q6 PRN #20 tablet 05/24/19 History of Present Illiness History of Present Illness: CATHY CARDONA is a 59 year old male Physical Exam Vital Signs: Temp Pulse Resp BP Pulse Ox 97.5 F 84 19 105/68 98 05/23/19 23:20 05/23/19 23:20 05/23/19 23:20 05/23/19 23:20 05/23/19 23:20 Intake & Output 05/23/19 05/24/19 05/25/19 06:59 06:59 06:59 Intake Total 2348 Output Total 1345 Balance 1003 Weight 80.6 kg Results Laboratory Results: WBC 11.3 10^3/uL (4.0-10.5) H 05/24/19 05:05 RBC 3.73 10^6/uL (4.35-5.55) L 05/24/19 05:05 Hgb 12.1 g/dL (13.5-17.0) L 05/24/19 05:05 Hct 35.5 % (37.9-51.0) L 05/24/19 05:05 MCV 95 fl (80-97) 05/24/19 05:05 MCH 32.5 pg (27.0-33.4) 05/24/19 05:05 MCHC 34.2 g/dL (32.0-36.0) 05/24/19 05:05 RDW 15.1 % (11.5-14.0) H 05/24/19 05:05 Plt Count 229 10^3/uL (150-450) 05/24/19 05:05 Lymph % (Auto) 5.4 % (13-45) L 05/24/19 05:05 Nash % (Auto) 8.2 % (3-13) 05/24/19 05:05 Eos % (Auto) 0.1 % (0-6) 05/24/19 05:05 Baso % (Auto) 0.1 % (0-2) 05/24/19 05:05 Absolute Neuts (auto) 9.7 10^3/uL (1.7-8.2) H 05/24/19 05:05 Absolute Lymphs (auto) 0.6 10^3/uL (0.5-4.7) 05/24/19 05:05 Absolute Monos (auto) 0.9 10^3/uL (0.1-1.4) 05/24/19 05:05 Absolute Eos (auto) 0.0 10^3/uL (0.0-0.6) 05/24/19 05:05 Absolute Basos (auto) 0.0 10^3/uL (0.0-0.2) 05/24/19 05:05 Seg Neutrophils % 86.2 % (42-78) H 05/24/19 05:05 Sodium 137.6 mmol/L (137-145) 05/24/19 06:07 Potassium 4.8 mmol/L (3.6-5.0) 05/24/19 06:07 Chloride 102 mmol/L (98-107) 05/24/19 06:07 Carbon Dioxide 24 mmol/L (22-30) 05/24/19 06:07 Anion Gap 12 (5-19) 05/24/19 06:07 BUN 14 mg/dL (7-20) 05/24/19 06:07 Creatinine 0.49 mg/dL (0.52-1.25) L 05/24/19 06:07 Est GFR ( Amer) > 60 (>60) 05/24/19 06:07 Est GFR (Non-Af Amer) Cancelled 05/24/19 05:05 Est GFR (MDRD) Non-Af > 60 (>60) 05/24/19 06:07 Glucose 139 mg/dL (75-110) H 05/24/19 06:07 Calcium 9.2 mg/dL (8.4-10.2) 05/24/19 06:07 EGFR Cancelled 05/24/19 05:05 Blood Type A POSITIVE 05/23/19 11:51 Antibody Screen NEGATIVE 05/23/19 11:51 Impressions: Chest X-Ray 05/16/19 00:00 IMPRESSION: No acute cardiopulmonary disease.
[2019-05-24 09:59] VITALS: BP 111/71
== END 2019-05-24 10:25 | disposition home or self-care (01) ==
LOC: OROUT 11:25 → 4S 16:09 → OROUT 18:12 → 4S 18:12 → OROUT 05-24 10:25 → 4S 05-24 10:25
PROVIDERS: ADMIT Surgery; ATTEND Surgery
DX: K43.2 Incisional hernia without obstruction or gangrene (principal); Z85.01 Personal history of malignant neoplasm of esophagus; Z92.21 Personal history of antineoplastic chemotherapy; Z90.49 Acquired absence of other specified parts of digestive tract; F17.210 Nicotine dependence, cigarettes, uncomplicated; M19.90 Unspecified osteoarthritis, unspecified site
CPT/HCPCS: 93005; 86900; 86901; 36415 ×3; 86850; 85025 ×2; 80048 ×2; 71046; 94799; 93010; 00832; 49560; 49568; 36590; G0378 ×2; G0379; C1781; J2250; J0690; J3490 ×2; J1100; J3010; J1885; J2270 ×2; J2710; J1170; J3480; J0330; J2405; J2704; S0028; J0131; C9290; 832